=== PATIENT | female | born 1980 | race Caucasian/White ===

== ENCOUNTER 2023-12-02 09:57 | Outpatient (OUT) | payer MEDICAID, SELFPAY ==
[2023-12-02 10:36] LABS: Basophils Percent Auto 0.2 % (0.2-2.0); Eosinophils Absolute Auto 0.2 10^3/uL (0.0-0.7); Eosinophils Percent Auto 3.3 % (0.9-7.0); Hematocrit 38.2 % (36.0-48.0); Hemoglobin 12.2 g/dL (12.0-16.0); Immature Granulocytes Abs Auto 0.02 10^3/uL (0.00-0.03); Immature Granulocytes Pct Auto 0.4 % (0.0-0.5); Lymphocytes Absolute Auto 1.3 10^3/uL (1.2-3.8); Lymphocytes Percent Auto 27.1 % (20.5-60.0); Mean Corpuscular HGB Conc 31.9 g/dL (29.9-35.2); Mean Corpuscular Hemoglobin 28.8 pg (26.7-34.0); Mean Corpuscular Volume 90.1 fL (81.0-99.0); Mean Platelet Volume 10.4 fL (9.5-13.5); Monocytes Absolute Auto 0.5 10^3/uL (0.3-0.8); Neutrophils Absolute Auto 2.9 10^3/uL (1.4-6.5); Platelet Count 293 10^3/uL (150-450); Red Blood Count 4.24 10^6/uL (4.20-5.40); Red Cell Distribution Width 15.3 % (11.0-15.0); White Blood Count 4.9 10^3/uL (4.0-11.0)
[2023-12-02 11:42] LABS: Alanine Aminotransferase 28 U/L (14-59); Albumin Globulin Ratio 1.2; Albumin Level 3.6 g/dL (3.4-5.0); Alkaline Phosphatase 63 U/L (46-116); Aspartate Amino Transferase 15 U/L (15-37); BUN Creatinine Ratio 25.4; Bilirubin Total 0.3 mg/dL (0.2-1.0); Calcium 9.3 mg/dL (8.5-10.1); Carbon Dioxide 30.1 mmol/L (21.0-32.0); Chloride 101 mmol/L (98-107); Chol HDL Ratio 3.5; Cholesterol 190 mg/dL (<=200); Estimated GFR (African America >60 (>=60); Estimated GFR (Non-African Ame >60 (>=60); Glucose 88 mg/dL (74-106); HDL Cholesterol 54 mg/dL (40-60); Magnesium 1.9 mg/dL (1.8-2.4); Potassium 4.1 mmol/L (3.5-5.1); Sodium 133 mmol/L (136-145); Total Protein 6.6 g/dL (6.4-8.2); Triglycerides 100 mg/dL (<=150)
[2023-12-08 03:07] LABS: Vitamin B1 (Thiamine), Blood 166.1 nmol/L (66.5-200.0)
== END 2023-12-02 09:58 | disposition home or self-care (01) ==
LOC: LAB 10:01
PROVIDERS: PCP Physician Assistant; Visit Provider Physician Assistant
DX: Z01.818 Encounter for other preprocedural examination (principal); Z98.84 Bariatric surgery status; Z13.6 Encounter for screening for cardiovascular disorders
CPT/HCPCS: 36415; 80053; 80061; 82306; 82607; 82746; 83735; 84425; 85025

== ENCOUNTER 2024-01-17 14:38 | Outpatient (OUT) | payer MEDICAID, SELFPAY ==
--- NOTE | 2024-01-17 15:00 | CA_ITS ---
Patient Name: CHERIE CAPELLAN MR#: [id number] : 1980 Exam Date: 01/17/2024 Ordering Doctor: DR YEIMI CROSS M.D. ECHOCARDIOGRAM REPORT PROCEDURE: CA ECHO DOPPLER COMPLETE INDICATIONS: Pre-op clearance COMPARISON: None. DESCRIPTION: COMPLETE ECHOCARDIOGRAM Real-time transthoracic echocardiography with 2D, M-mode, spectral and color flow Doppler performed. QUALITY: Technical quality was adequate. LEFT VENTRICLE: Normal chamber size. Mild concentric left ventricular hypertrophy. Global left ventricular systolic function is normal. LV EF: Calculated left ventricular ejection fraction is 59%. DIASTOLIC: Normal diastolic function. ATRIAL SEPTUM: LEFT ATRIUM: Mild dilatation. RIGHT ATRIUM: Mild dilatation. RIGHT VENTRICLE: Normal chamber size. Normal right ventricular systolic function. TRICUSPID VALVE: Normal mobility and thickness. No stenosis with trivial regurgitation. No evidence of pulmonary hypertension. RVSP 21 mmHg MITRAL VALVE: Normal mobility and thickness. No evidence of mitral valve stenosis. There is no mitral annular calcification. No mitral regurgitation. AORTIC VALVE: Normal trileaflet appearance. No visible sclerosis. Normal leaflet mobility. No evidence of aortic valve stenosis. No aortic regurgitation. AORTIC ROOT: Normal diameter and appearance. PULMONIC VALVE: Normal thickness and mobility. No stenosis. No regurgitation. PERICARDIUM: No pericardial effusion. IVC: Collapses with inspirations. Normal size. PLEURA: CONCLUSION: 1. Mild concentric left ventricular hypertrophy with normal systolic function. LVEF is estimated at 55 to 60%. 2. Normal right ventricular size and systolic function. 3. Normal diastolic function. 4. No significant valvular dysfunction. 5. Normal right-sided pressures. Adult Echocardiography Procedure Report Left Ventricle LVEDD (3.7 - 5.6 cm): 4.78 cm LVESD (2.2 - 4.0 cm): 3.16 cm LVIVS thickness (0.6 - 1.2 cm): 1.18 cm LVPW thickness (0.5 - 1.0 cm): 1.31 cm e': 0.11 m/s E - e': 7.43 LVOT Max Gradient: 2.37 mm[Hg] LVOT Area (cm2): 0.77 m/s Peak Velocity (LVOT): 0.77 m/s Mean Velocity (LVOT): 0.46 m/s LVOT Diameter 2.14 cm Left Ventricular Ejection Fraction: 58.86 % Left Atrium LA Volume Index (2D A2C): 42.69 ml/m2 Left Atrium Systolic Dimension: 4.22 cm Mitral Valve MV E to A Ratio: 1.61 Mitral Valve A-Wave Peak Velocity: 0.49 m/s Mitral Valve E-Wave Peak Velocity: 0.79 m/s Right Ventricle RV Internal Diastolic Dimension: 3.46 cm Aorta AO Root Diam: 3.17 cm Ascending Ao Diam: 3.08 cm Aortic Valve AoV Area (Peak Giles): 2.71 cm2, 2.71 cm2 AoV Area (VTI): 2.99 cm2, 2.99 cm2 Peak Velocity(Antegrade Flow): 1.02 m/s Peak Gradient(Antegrade Flow): 4.19 mm[Hg] Mean Velocity(Antegrade Flow): 0.68 m/s Mean Gradient(Antegrade Flow): 2.07 mm[Hg] Velocity Time Integral: 20.95 cm Tricuspid Valve Peak Velocity (Regurgitant Flow): 2.17 m/s, 2.05 m/s, 2.14 m/s Pulmonic Valve Mean Gradient: 1.89 mm[Hg] Mean Velocity: 0.66 m/s Peak Velocity: 0.84 m/s, 0.81 m/s Peak Gradient: 2.80 mm[Hg], 2.64 mm[Hg] Right Atrium Right Atrium Systolic Pressure: 63.95 ml, 63.95 ml Dictated by: Nabor Nicolas M.D. on 01/19/2024 at 12:05 Approved by: Nabor Nicolas M.D. on 01/19/2024 at 12:07
== END 2024-01-17 14:39 | disposition home or self-care (01) ==
LOC: CARD 14:39
PROVIDERS: PCP Physician Assistant; Visit Provider Internal Medicine Interventional Cardiology
DX: Z01.818 Encounter for other preprocedural examination (principal)
CPT/HCPCS: 93306

== ENCOUNTER 2024-01-25 07:30 | Outpatient (OUT) | payer MEDICAID, SELFPAY ==
--- NOTE | 2024-01-25 07:05 | NM_ITS ---
Patient Name: CHERIE CAPELLAN MR#: [id number] : 1980 Exam Date: 01/25/2024 Ordering Doctor: DR YEIMI CROSS M.D. RADIOLOGY REPORT PROCEDURE: NM MAVERICK PERF SPECT REST STR COMPARISON: None. INDICATIONS: TACHYCARDIA, PRE PROCEDURE CARDIOVASCULAR EXAM TECHNIQUE: Exam Description: Stress/Rest one day protocol gated SPECT Rest Imagin.4 mCi Tc-99m Cardiolite IV on 01/25/2024 Stress Imaging 30.1 mCi Tc-99m Cardiolite IV on 01/25/2024 Exercise Protocol: 0.4 mg Lexiscan given IV Heart Rate (bpm): Rest: 74 Max: 97 PMHR: 55 Blood Pressure: Rest: 138/80 Max: 138/80 Symptoms: Rest and peak stress ECG findings were normal and the exercise portion of the study was normal per attending physician Dr. Cross . For more details please see separate cardiac stress test report. FINDINGS: QUALITY OF STUDY: Good. PERFUSION DEFECT: LOCATION: Mid-anterior. Apical anterior. SIZE: Small (1-2 segments). SEVERITY: Mild. TYPE: Persistent. WALL MOTION: Normal. LV SIZE: Normal. 101 mL. TID / TCD: None; 1.1 LVEF: Normal. Calculated EF 76%. SUMMARY: Myocardial perfusion imaging study has ABNORMAL findings. CONCLUSION: 1. Small fixed defect in the anterior wall. No reversible ischemia 2. Normal exercise test Dictated by: Raman Lucas MD on 01/26/2024 at 09:45 Approved by: Raman Lucas MD on 01/26/2024 at 09:47
--- NOTE | 2024-01-25 07:30 | PCN_ITS ---
CARDIAC STRESS TEST ? Requesting Physician:? Procedure Date:? 01/25/2024 ? INDICATION:? Preoperative evaluation. ? METHODS:? After risks, benefits and alternatives were explained, written informed consent was obtained.? The patient was connected to the appropriate hemodynamic and electrocardiographic monitoring.? ? Lexiscan 0.4 mg was infused intravenously.? The patient was monitored for the standard duration.? She was to be transferred to the Nuclear Lab for imaging.? There were no complications. ? HEMODYNAMICS: Resting heart rate was 74 beats per minute, increasing to a maximum of 97 beats per minute.? Resting blood pressure was 138/80, decreasing to a minimum of 120/78.? The patient had no symptoms. ? ELECTROCARDIOGRAPHY: Rest EKG:? Normal sinus rhythm, poor R-wave progression, cannot rule out anterior infarct, age indeterminate.? Right axis deviation.? Abnormal resting EKG. During infusion and recovery:? No significant ST-T wave changes noted.? No significant arrhythmias seen. ? FINAL IMPRESSIONS: 1.? No ischemic EKG changes seen on Lexiscan pharmacological stress test. 2.? Nuclear images are to be read, interpreted and reported in a separate dictation. [facility]
--- OUTSIDE RECORDS SUMMARY | 2024-01-25 07:33 | XMS_ITS | CCD ---
Author Name Unknown Address [address] [facility] [address] [place] [address] Organization [facility] Care Team Providers Care Quality Officer Name Role Phone Maria Luisa Anand Unavailable Javier Pham Unavailable Curtis Lind Unavailable Ricky Quarles Unavailable Curtis Yousif Unavailable Jones Caceres II Unavailable DO Ricky Quarles Primary Care Provider [phone] DO Jethro Perez Emergency Provider Unavai MD Jones Glass II Attending Provider PIEDAD Pressley Primary Care Provider [phone] DR JETHRO ORDONEZ Admitting Unavailable JOSÉ LUIS, DR MORELOS Attending Unavailable MARLENE, DR CONY Camarena Consulting Unavailable JOSÉ LUIS, DR MORELOS Consulting Unavailable JOSÉ LUIS, DR MORELOS Admitting Unavailable JOSÉ LUIS, DR MORELOS Attending Unavailable JOSÉ LUIS, DR MORELOS Consulting Unavailable Eleanor Singleton Unavailable Ai Pressley APRN Unavailable Billy Mccoy Unavailable GIACOMO Singleton Attending Provider NO FAMILY, PHYSICIAN Primary Care Provider Unava ilable PIEDAD Pressley Primary Care Provider [phone] ARDEN Carmichael Attending Provider Katarzyna Carmichael Unavailable PIEDAD Pressley Primary Care Provider [phone] ARDEN Carmichaelher R Attending Provider Mani, PAINT POURER Eleanor Attending Provider NO FAMILY, PHYSICIAN Primary Care Provider Unava MD Adelaide Gagnon Attending Provider [phone] PIEDAD Altamirano Attending Provider Sandra Hurley Unavailable Mani, PAINT POURER Eleanor Attending Provider NO FAMILY, PHYSICIAN Primary Care Provider Unava ilable MD Raman Laura Attending Provider ARDEN Carmichaelher Migue Referring Provider [phone] CASS PressleyC Ai Nolasco Attending Provider Raman Laura Unavailable Mani, PAINT POURER Eleanor Attending Provider NO FAMILY, PHYSICIAN Primary Care Provider Unava ilable GIACOMO Pressley-C Ai Nolasco Primary Care Provider MD Raman Laura Attending Provider [phone] Huan LOPEZNAi Charlotte Unavailable RAYA OLIVA Attending Unavailable RAYA OLIVA Referring Unavailable CASS PressleyC Ai Nolasco Primary Care Provider MD Raman Laura Attending Provider [phone] NO FAMILY, PHYSICIAN Primary Care Provider Unava yobani PHAN JR., VERONICA Tapia Attending Unavailnic PHAN JR., VERONICA Tapia Attending Unavailnic PHAN JR., GEORGE C Referring Unavaila ADELAIDE Arthur Attending Unavailable MD Raman Laura Attending Provider [phone] YEIMI CROSS Attending Unavailable Raman Laura Attending Unavailable Raman Laura Admitting Unavailable Huan, Ai N Primary Care Unavailable Raman Laura Admitting Unavailable Raman Laura Attending Unavailable Huan, Ai N Primary Care Unavailable Raman Laura Attending Unavailable Raman Laura Admitting Unavailable Huan, Ai N Primary Care Unavailable NO FAMILY, PHYSICIAN Primary Care Unavailable Raman Laura Attending Unavailable Raman Laura Admitting Unavailable Singleton, Eleanor Admitting Unavailable Mani Eleanor Attending Unavailable NO FAMILY, PHYSICIAN Primary Care Unavailable Katarzyna Carmichael R Admitting Unavailable Katarzyna Carmichael R Attending Unavailable Huan Ai N Primary Care Unavailable Adelaide Zavala Admitting Unavailable Adelaide Zavala Attending Unavailable Huan, Ai N Primary Care Unavailable Karin Altamirano Admitting Unavailable Karin Altamirano Attending Unavailable Huan Ai N Primary Care Unavailable Katarzyna Carmichael R Referring Unavailable Raman Laura Attending Unavailable Raman Laura Admitting Unavailable Huan, Ai N Primary Care Unavailable Huan, Ai N Primary Care Unavailable Huan, Ai N Attending Unavailable Sandrita Pressleyy N Admitting Unavailable Raman Laura Attending Unavailable Raman Laura Admitting Unavailable HuanLonnieAi N Primary Care Unavailable Allergies Allergy Classification Reported Allergen(s) Allergy Type Date of Onset Reaction(s) Facility (10 sources) Penicillin V Drug Allergy rash [facility] [employer] Other (20 sources) Penicillin Drug Allergy 08-31-2022 rash [facility] Repository (20 sources) metFORMIN; Translations: [METFORMIN] Drug Allergy 08-12-[address] [facility] (3 sources) Penicillins; Translations: [PENICILLINS] Drug Allergy 08-04-[address] [facility] (1 source) metFORMIN Drug Allergy 12-30-2023 [facility] Repository (1 source) Penicillins Drug allergy (disorder) 12-30-2023 [facility] Repository Medications Current Medications Medication Drug Class(es) Dates Sig (Normalized) Sig (Original) acetaminophen 325 mg / HYDROcodone bitartrate 5 mg oral tablet (20 sources) Opioid Agonist Start: 12-30-2023 take 1 tablet by mouth twice daily as needed HYDROcodone-Aceta minophen 5-325 MG 1 tablet as needed Orally twice daily (*do not fill until 01/01/24) for 30 days G89.29 Chronic Pain Dec, Active Start: 12-02-2023 take 1 tablet by nikos th twice daily as needed HYDROcodone-Acetaminophen 5-325 MG 1 tab let as needed Orally twice daily (*do not fill until 12/02/23) for 30 days G89.29 Chronic Pain Nov, Active Start: 11-02-2023 take 1 tablet by nikos th twice daily as needed HYDROcodone-Acetaminophen 5-325 MG 1 tab let as needed Orally twice daily (*do not fill until 11/02/23) for 30 days G89.29 Chronic Pain Oct, Active Start: 10-03-2023 take 1 tablet by nikos th twice daily as needed HYDROcodone-Acetaminophen 5-325 MG 1 tab let as needed Orally twice daily (*do not fill until 10/03/23) for 30 days G89.29 Chronic Pain Sep, Active Start: 10-03-2023 take 1 tablet by nikos th twice daily as needed HYDROcodone-Acetaminophen 5-325 MG 1 tab let as needed Orally twice daily (*do not fill until 10/03/23) for 30 days G89.29 Chronic Pain Sep, Active Start: 09-03-2023 take 1 tablet by nikos th twice daily as needed HYDROcodone-Acetaminophen 5-325 MG 1 tab let as needed Orally twice daily (*do not fill until 09/03/23) for 30 days G89.29 Chronic Pain Aug, Active Start: 08-04-2023 take 1 tablet by nikos th twice daily as needed HYDROcodone-Acetaminophen 5-325 MG 1 tab let as needed Orally twice daily (*do not fill until 08/04/23) for 30 days G89.29 Chronic Pain Jul, Active Start: 07-04-2023 take 1 tablet by nikos th twice daily as needed HYDROcodone-Acetaminophen 5-325 MG 1 tab let as needed Orally twice daily (*do not fill until 07/04/23) for 30 days G89.29 Chronic Pain Jun, Active Start: 07-04-2023 take 1 tablet by nikos th twice daily as needed HYDROcodone-Acetaminophen 5-325 MG 1 tab let as needed Orally twice daily (*do not fill until 07/04/23) for 30 days G89.29 Chronic Pain Jun, Active Start: 06-04-2023 take 1 tablet by nikos th twice daily as needed HYDROcodone-Acetaminophen 5-325 MG 1 tab let as needed Orally twice daily (*do not fill until 05/05/23) for 30 days G89.29 Chronic Pain May, Active Start: 05-03-2023 take 1 tablet by nikos th twice daily as needed HYDROcodone-Acetaminophen 5-325 MG 1 tab let as needed Orally twice daily (*do not fill until 05/03/23) for 30 days G89.29 Chronic Pain Apr, Active Start: 05-02-2023 take 1 tablet by nikos th twice daily as needed HYDROcodone-Acetaminophen 5-325 MG 1 tab let as needed Orally twice daily (*do not fill until 05/03/23) for 30 days G89.29 Chronic Pain Apr, Active Start: 03-31-2023 take 1 tablet by nikos th twice daily as needed HYDROcodone-Acetaminophen 5-325 MG 1 tab let as needed Orally twice daily (*do not fill until 03/31/23) for 30 days G89.29 Chronic Pain March, Active Start: 02-27-2023 take 1 tablet by nikos th twice daily as needed HYDROcodone-Acetaminophen 5-325 MG 1 tab let as needed Orally twice daily (*do not fill until 02/27/23) for 30 days G89.29 Chronic Pain Feb, Active Start: 02-27-2023 take 1 tablet by nikos th twice daily as needed HYDROcodone-Acetaminophen 5-325 MG 1 tab let as needed Orally twice daily (*do not fill until 02/27/23) for 30 days G89.29 Chronic Pain Feb, Active Start: 01-28-2023 take 1 tablet by nikos th twice daily as needed HYDROcodone-Acetaminophen 5-325 MG 1 tab let as needed Orally twice daily (*do not fill until 01/28/23) for 30 days G89.29 Chronic Pain Jan, Active Start: 01-28-2023 take 1 tablet by nikos th twice daily as needed HYDROcodone-Acetaminophen 5-325 MG 1 tab let as needed Orally twice daily (*do not fill until 01/28/23) for 30 days G89.29 Chronic Pain Jan, Active Start: 01-03-2023 take 1 tablet by nikos th twice daily as needed HYDROcodone-Acetaminophen 5-325 MG 1 tab let as needed Orally twice daily (*do not fill until 01/06/2023) for 23 days G89.29 Chronic Pain Dec, Active Start: 10-20-2022 take 1 tablet by nikos th twice daily as needed HYDROcodone-Acetaminophen 5-325 MG 1 tab let as needed Orally twice daily for 30 days G89.29 Chronic Pain Sep, Active Start: 10-07-2022 take 1 tablet by nikos th once daily as needed HYDROcodone-Acetaminophen 5-325 MG 1 tab let as needed Orally once daily as needed for 14 days G89.29 Chronic Pain Sep, Active Start: 09-24-2022 HYDROcodone-ac etaminophen (NORCO) 5-325 mg per tablet HYDROcodone-Acet aminophen Not-Taking/PRN HYDROcodone-Acet aminophen Not-Taking HYDROcodone-Acet aminophen Active acetaminophen 325 mg / oxyCODONE hydrochloride 5 mg oral tablet (2 sources) Opioid Agonist take 1 tablet by mouth every eight hours as needed Percocet 5-325 MG 1 tablet as needed Orally prn every 8 hrs Active carBAMazepine 200 mg oral tablet (12 sources) Mood Stabilizer Start: take 1 tablet by mouth every twelve hours carBAMazepine 200 MG 1 tablet Orally Twice a day for 30 days Jun, Active cetirizine hydrochloride 10 mg oral tablet (20 sources) Histamine-1 Receptor Antagonist take 1 tablet by mouth every twenty-four hours ZyrTEC Allergy 10 MG 1 tablet Orally Once a day Active take 1 tablet by mouth once jaswinder y cetirizine (ZYRTEC) 5 mg tablet Take 5 mg by mouth once daily. 0 Active Comment on above: Take 5 mg by mouth o nce daily. doxycycline hyclate 50 mg delayed release oral tablet (4 sources) Tetracycline-class Drug take 1 tablet by mouth every twelve hours Doxycycline Hyclate 50 MG 1 tablet Orally Twice a day Active Fiber (18 sources) Fiber Active folic acid 1 mg oral tablet (20 sources) take 1 tablet by mouth every twenty-four hours Folic Acid 1 MG 1 tablet Orally Once a day Active folic acid 0.8 m g cap Take by mouth. 0 Active Comment on above: Take by mouth. 3 ml liraglutide 6 mg/ml pen injector (20 sources) GLP-1 Receptor Agonist Start: 05-09-20 inject 1.8 mg by subcutaneous injection once daily Victoza 18 MG/3ML 1.8mg Subcutaneous Daily for 30 days Apr, Active Victoza 18mg/3ml injection as directed 1.8mg qd Not-Taking/PRN Victoza 18mg/3ml injection as directed 1.8mg qd Not-Taking Victoza 18mg/3ml injection as directed 1.8mg qd Active Multi For Her - (20 sources) Multi For Her - as directed Orally Active naproxen 500 mg oral tablet (10 sources) Nonsteroidal Anti-inflammatory Drug Start: take 1 tablet by mouth twice daily Naproxen (Naprosyn) 500 mg tablet Active 500 MG PO Twice daily 09 01May 16, 2022 11:00pm vitamin B12 (20 sources) Vitamin B12 cyanocobalamin ( VITAMIN B-12) 1,000 mcg tab Take 2,000 mcg by mouth. 0 Active Vitamin B12 Acti ve Comment on above: Take 2,000 mcg by [facility]. Vitamin D (15 sources) Vitamin D 5000 I U Active Completed/Discontinued Medications Medication Drug Class(es) Dates Sig (Normalized) Sig (Original) 8 hr acetaminophen 650 mg extended release oral tablet (20 sources) take 1 tablet by mouth every eight hours Acetaminophen ER 650 MG 1 tablets as needed Orally every 8 hrs Not-Taking/PRN take 1 tablet by [facility] every eight hours as needed Acetaminophen ER 650 MG 1 tablets as nee ded Orally every 8 hrs Not-Taking celecoxib 200 mg oral capsule (20 sources) Nonsteroidal Anti-inflammatory Drug Start: 03-25-2021 celecoxib (CELEBREX) 200 mg capsule take 1 capsule by [facility] every twelve hours CeleBREX 200 MG 1 capsule with food Oral ly Twice a day for 90 days Active DULoxetine 60 mg delayed release oral capsule (20 sources) Serotonin and Norepinephrine Reuptake Inhibitor Start: 04-04-2020 take 1 tablet by mouth once daily DULoxetine (CYMBALTA) 60 mg capsule Take 1 tablet by mouth once daily. 0 04/04/2020 Active Comment on above: Take 1 tablet by [facility] once daily. ergocalciferol 1.25 mg oral capsule (2 sources) Provitamin D2 Compound take 1 capsule by mouth once daily ergocalciferol 50,000 unit capsule (VITAMIN D2, DRISDOL) Take 1,000 Units by mouth once daily. 0 Active Comment on above: Take 1,000 Units by mouth once daily. Ketorolac (20 sources) Nonsteroidal Anti-inflammatory Drug, Cyclooxygenase Inhibitor Start: 04-09-2022 Toradol per 15 mg March, 60 mg Magnesium (2 sources) Magnesium 200 mg tab Take by mouth. 0 Active Comment on above: Take by mouth. pantoprazole 40 mg oral granules (20 sources) Proton Pump Inhibitor Start: 05-31-2022 pantoprazole (PROTONIX) 40 mg grps take 1 tablet by nikos th every twenty-four hours Pantoprazole Sodium 40 MG 1 tablet Orall y Once a day for 30 days Active take 1 tablet by nikos th every twenty-four hours Pantoprazole Sodium 20 MG 1 tablet Orall y Once a day for 30 days Active triamcinolone acetonide 10 mg/ml injectable suspension (20 sources) Corticosteroid Start: 04-09-2022 Kenalog March 60 mg Problems Active Problems Problem Classification Problem Date Documented Date Episodic/Chronic Administrative/social admission (2 sources) Persons encountering health services in other specified circumstances Episodic Anxiety disorders (20 sources) Anxiety; Translations: [Anxiety disorder, unspecified] Onset: 02-03-2023 Chronic Esophageal disorders (20 sources) Gastroesophageal reflux disease; Translations: [Gastro-esophageal reflux disease without esophagitis] Onset: 01-26-2022 Resolved: 01-26-2022 Chronic Menstrual disorders (20 sources) Amenorrhea; Translations: [Amenorrhea, unspecified] Chronic Miscellaneous mental health disorders (18 sources) Chronic insomnia; Translations: [Psychophysiologic insomnia] Chronic Mood disorders (20 sources) Major depressive disorder, single episode, unspecified; Translations: [Depression] Onset: 02-03-2023 Chronic Osteoarthritis (20 sources) Arthropathy of left hip joint; Translations: [Unilateral primary osteoarthritis, left hip] Onset: 02-03-2023 Chronic Other bone disease and musculoskeletal deformities (1 source) Osteonecrosis, unspecified; Translations: [OSTEONECROSIS UNSPECIFIED] Onset: 09-22-2022 Chronic Other bone disease and musculoskeletal deformities (20 sources) Avascular necrosis of bone of hip; 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] Chronic Other bone disease and musculoskeletal deformities (18 sources) Idiopathic aseptic necrosis of left femur; 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] Onset: 02-03-2023 Chronic Other bone disease and musculoskeletal deformities (1 source) Avascular necrosis of bone; 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] 08-12-2023 Chronic Other bone disease and musculoskeletal deformities (2 sources) Idiopathic aseptic necrosis of unspecified bone; Translations: [Idiopathic aseptic necrosis of unspecified bone] Onset: 12-19-2023 Chronic Other congenital anomalies (10 sources) Tnoo-Danlos syndrome; 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, 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 Other connective tissue disease (3 sources) Pain in left leg Episodic Other connective tissue disease (2 sources) Pain in left thigh Episodic Other endocrine disorders (20 sources) Polycystic ovaries; Translations: [Polycystic ovarian syndrome] Chronic Other endocrine disorders (3 sources) Polycystic ovarian syndrome; Translations: [Polycystic ovarian syndrome] Onset: 02-03-2023 Chronic Other inflammatory condition of skin (20 sources) Psoriatic arthritis; 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, unspecified] Chronic Other inflammatory condition of skin (1 source) Arthropathic psoriasis, unspecified Onset: 01-26-2022 Resolved: 01-26-2022 Chronic Other nervous system disorders (20 sources) Chronic pain; Translations: [Other chronic pain] Chronic Other nervous system disorders (18 sources) Other chronic pain; Translations: [Other chronic pain] Onset: 02-03-2023 Chronic Other nervous system disorders (18 sources) Chronic pain syndrome; Translations: [Chronic pain syndrome] Chronic Other nervous system disorders (1 source) Chronic pain syndrome Chronic Other non-traumatic joint disorders (2 sources) Pain in unspecified hip Onset: 03-01-2022 Resolved: 03-01-2022 Episodic Other non-traumatic joint disorders (10 sources) Hip pain; Translations: [Pain in unspecified hip] 05-17-2022 Episodic Other nutritional; endocrine; and metabolic disorders (20 sources) Morbid obesity; Translations: [Morbid (severe) obesity due to excess calories] Chronic Other nutritional; endocrine; and metabolic disorders (20 sources) Obesity; Translations: [Obesity, unspecified] Chronic Other nutritional; endocrine; and metabolic disorders (3 sources) Morbid (severe) obesity due to excess calories; Translations: [Morbid (severe) obesity due to excess calories] Onset: 12-19-2023 Chronic Other nutritional; endocrine; and metabolic disorders (7 sources) Obesity, unspecified; Translations: [Obesity, unspecified] Onset: 02-03-2023 Chronic Other nutritional; endocrine; and metabolic disorders (20 sources) Body mass index 40+ - severely obese; Translations: [Body mass index (BMI) 40.0-44.9, adult] Chronic Other nutritional; endocrine; and metabolic disorders (6 sources) Body mass index (BMI) 40.0-44.9, adult Chronic Personality disorders (20 sources) Borderline personality disorder; Translations: [Borderline personality disorder] Onset: 01-26-2022 Resolved: 01-26-2022 Chronic Residual codes; unclassified (18 sources) Obstructive sleep apnea syndrome; Translations: [Obstructive sleep apnea (adult) (pediatric)] Chronic Residual codes; unclassified (18 sources) Sleep apnea; Translations: [Sleep apnea, unspecified] Chronic Residual codes; unclassified (2 sources) Obstructive sleep apnea (adult) (pediatric) Chronic Residual codes; unclassified (1 source) Obstructive sleep apnea (adult)(pediatric); Translations: [Obstructive sleep apnea (adult) (pediatric)] Onset: 07-20-2023 Chronic Residual codes; unclassified (2 sources) Pain; Translations: [Pain, unspecified] Episodic Residual codes; unclassified (20 sources) Insomnia; Translations: [Insomnia, unspecified] Episodic Residual codes; unclassified (1 source) Pain, unspecified; Translations: [Pain] Onset: 08-12-2023 Episodic Unclassified (1 source) Dietary counseling and surveillance; Translations: [Dietary counseling and surveillance] Onset: 06-10-2023 Unclassified (1 source) Tono-Danlos syndrome, unspecified; 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, unspecified] Onset: 04-24-2023 Unclassified (1 source) Pain in right hip; Translations: [Pain in right hip] Onset: 03-11-2023 Unclassified (1 source) Encounter for screening mammogram for malignant neoplasm of breast; Translations: [Encounter for screening mammogram for malignant neoplasm of breast] Onset: 03-10-2023 Past or Other Problems Problem Classification Problem Date Documented Da te Episodic/Chronic Cardiac dysrhythmias (2 sources) Tachycardia, unspecified; Translations: [Palpitations] Onset: 04-24-2023 Episodic Coma; stupor; and brain damage (20 sources) Excessive daytime sleepiness - normal night sleep; Translations: [Somnolence] Onset: 02-03-2023 Episodic Diabetes mellitus without complication (3 sources) Impaired fasting glucose; Translations: [Impaired fasting glucose] Onset: 02-03-2023 Episodic Immunizations and screening for infectious disease (2 sources) Contact with and (suspected) exposure to other viral communicable diseases Onset: 01-13-2022 Resolved: 01-19-2022 Episodic Other aftercare (3 sources) Encounter for therapeutic drug level monitoring; Translations: [Encounter for therapeutic drug level monitoring] Onset: 09-01-2023 Episodic Other non-traumatic joint disorders (6 sources) Pain in left hip; Translations: [PAIN IN LEFT HIP] Onset: 06-09-2022 Resolved: 06-09-2022 Episodic Other skin disorders (2 sources) Generalized hyperhidrosis; Translations: [Generalized hyperhidrosis] Onset: 01-26-2022 Resolved: 01-26-2022 Episodic Results Test Name Value Interpretation Reference Range Facility Office Visiton 12-19-2023 Follow-up visit [id number] Nataliia Nelson 1980 F Date Provider Department Center 12/19/2023 Maria Alejandra-YEIMI CROSS CARD Dae Shook Family History Problem Relation Age of Onset Hypertension Mother Kidney cancer Father Kidney cancer Maternal Grandmother Heart failure Maternal Grandfather Aortic aneurysm Paternal Grandmother Family Status - Relation Status Age at Mother Father Maternal Grandmother Maternal Grandfather Paternal Grandmother Level of Service:64597 [place] OFFICE/OUTPATIENT NEW MODERATE MDM 45 MINUTES Normal [facility] Basophils Auto (Bld) [#/Vol] Ordered By: Raman Laura on 09-01-2023 Basophils (Bld) [#/Vol] 0.0 10*3/uL 0.0-0.2 [facility] Basophils/100 WBC Auto (Bld) Ordered By: Raman Laura on 09-01-2023 Basophils/100 WBC (Bld) 0.6 % . F [facility] Complete Blood Count Auto Di ffon 09-01-2023 Basophils (Bld) [#/Vol] 0.0 10*3/uL Normal 0.0-0.2 [facility] Comment on above: Order Comment: Reaso n for Exam Obesity;Gastroesophageal reflux disease, unspecified whether Result Comment: PERF ORMED BY: [facility] [address] [place] [address] PATHOLOGIST [employer]ITE MONITOR AAMIR TORRES M.D. Performed By: #### C MP, A1C WTH eA, CBC, [id number], TSH3 wRFLX, B12, LIPID #### [facility] [address] [place] [address] [place] Basophils/100 WBC (Bld) 0.6 % Normal . F [facility] Comment on above: Order Comment: Reaso n for Exam Obesity;Gastroesophageal reflux disease, unspecified whether Performed By: #### C MP, A1C WTH eA, CBC, [id number], TSH3 wRFLX, B12, LIPID #### [facility] [address] [place] [address] [place] Eosinophils (Bld) [#/Vol] 0.2 10*3/uL Normal 0.0-0.45 [facility] Comment on above: Order Comment: Reaso n for Exam Obesity;Gastroesophageal reflux disease, unspecified whether Performed By: #### C MP, A1C WTH eA, CBC, [id number], TSH3 wRFLX, B12, LIPID #### [facility] [address] [place] [address] [place] Eosinophils/100 WBC (Bld) 3.5 % Normal . [facility] Comment on above: Order Comment: Reaso n for Exam Obesity;Gastroesophageal reflux disease, unspecified whether Performed By: #### C MP, A1C WTH eA, CBC, [id number], TSH3 wRFLX, B12, LIPID #### [address] Erythrocyte distribution width (RBC) [Ratio] 15.0 % Normal 11.9-15.3 [facility] Comment on above: Order Comment: Reaso n for Exam Obesity;Gastroesophageal reflux disease, unspecified whether Performed By: #### C MP, A1C WTH eA, CBC, [id number], TSH3 wRFLX, B12, LIPID #### [facility] [address] Hematocrit (Bld) [Volume fraction] 36.1 % Normal 34.0-46.4 [facility] Comment on above: Order Comment: Reaso n for Exam Obesity;Gastroesophageal reflux disease, unspecified whether Performed By: #### C MP, A1C WTH eA, CBC, [id number], TSH3 wRFLX, B12, LIPID #### [facility] [address] Hemoglobin (Bld) [Mass/Vol] 12.0 g/dL Normal 11.8-15.4 [facility] Comment on above: Order Comment: Reaso n for Exam Obesity;Gastroesophageal reflux disease, unspecified whether Performed By: #### C MP, A1C WTH eA, CBC, [id number], TSH3 wRFLX, B12, LIPID #### [facility] [address] [place] [address] Lymphocytes (Bld) [#/Vol] 1.4 10*3/uL Normal 1.00-4.8 [facility] Comment on above: Order Comment: Reaso n for Exam Obesity;Gastroesophageal reflux disease, unspecified whether Performed By: #### C MP, A1C WTH eA, CBC, [id number], TSH3 wRFLX, B12, LIPID #### [address] Lymphocytes/100 WBC (Bld) 29.0 % Normal . [facility] Comment on above: Order Comment: Reaso n for Exam Obesity;Gastroesophageal reflux disease, unspecified whether Performed By: #### C MP, A1C WTH eA, CBC, [id number], TSH3 wRFLX, B12, LIPID #### [facility] [address] [address] MCH (RBC) [Entitic mass] 28.6 pg Normal 24.7-34.3 [facility] Comment on above: Order Comment: Reaso n for Exam Obesity;Gastroesophageal reflux disease, unspecified whether Performed By: #### C MP, A1C WTH eA, CBC, [id number], TSH3 wRFLX, B12, LIPID #### [facility] [address] [place], [place] [id number] [facility] MCV (RBC) [Entitic vol] 85.8 fL Normal 80-100 F [facility] Comment on above: Order Comment: Reaso n for Exam Obesity;Gastroesophageal reflux disease, unspecified whether Performed By: #### C MP, A1C WTH eA, CBC, [id number], TSH3 wRFLX, B12, LIPID #### [facility] [address] Mean Corpuscular HGB Conc 33.3 g/dL Normal 32.0-35.0 [facility] Comment on above: Order Comment: Reaso n for Exam Obesity;Gastroesophageal reflux disease, unspecified whether Performed By: #### C MP, A1C WTH eA, CBC, [id number], TSH3 wRFLX, B12, LIPID #### [facility] [address] [place] [address] [place] Monocytes (Bld) [#/Vol] 0.4 10*3/uL Normal 0.0-0.8 [facility] Comment on above: Order Comment: Reaso n for Exam Obesity;Gastroesophageal reflux disease, unspecified whether Performed By: #### C MP, A1C WTH eA, CBC, [id number], TSH3 wRFLX, B12, LIPID #### [facility] [address] Monocytes/100 WBC (Bld) 8.9 % Normal . [facility] Comment on above: Order Comment: Reaso n for Exam Obesity;Gastroesophageal reflux disease, unspecified whether Performed By: #### C MP, A1C WTH eA, CBC, [id number], TSH3 wRFLX, B12, LIPID #### [facility] [address] [place] [address] [place] Neutrophils (Bld) [#/Vol] 2.8 10*3/uL Normal 1.8-7.7 [facility] Comment on above: Order Comment: Reaso n for Exam Obesity;Gastroesophageal reflux disease, unspecified whether Performed By: #### C MP, A1C WTH eA, CBC, [id number], TSH3 wRFLX, B12, LIPID #### [facility] [address] [place] [address] [place] Neutrophils/100 WBC (Bld) 58.0 % Normal . [facility] Comment on above: Order Comment: Reaso n for Exam Obesity;Gastroesophageal reflux disease, unspecified whether Performed By: #### C MP, A1C WTH eA, CBC, [id number], TSH3 wRFLX, B12, LIPID #### [facility] [address] NRBC% 0.2 /100{WBC} Normal 0-0.5 [facility] Comment on above: Order Comment: Reaso n for Exam Obesity;Gastroesophageal reflux disease, unspecified whether Performed By: #### C MP, A1C WTH eA, CBC, [id number], TSH3 wRFLX, B12, LIPID #### [facility] [address] Platelet mean volume (Bld) [Entitic vol] 8.9 fL Normal 6.3-10.7 [facility] Comment on above: Order Comment: Reaso n for Exam Obesity;Gastroesophageal reflux disease, unspecified whether Performed By: #### C MP, A1C WTH eA, CBC, [id number], TSH3 wRFLX, B12, LIPID #### [facility] [address] Platelets (Bld) [#/Vol] 294 10*3/uL Normal 150-450 [facility] Comment on above: Order Comment: Reaso n for Exam Obesity;Gastroesophageal reflux disease, unspecified whether Performed By: #### C MP, A1C WTH eA, CBC, [id number], TSH3 wRFLX, B12, LIPID #### [facility] [address] RBC (Bld) [#/Vol] 4.21 10*6/uL Normal 3.60-5.00 [facility] Comment on above: Order Comment: Reaso n for Exam Obesity;Gastroesophageal reflux disease, unspecified whether Performed By: #### C MP, A1C WTH eA, CBC, [id number], TSH3 wRFLX, B12, LIPID #### [facility] [address] WBC (Bld) [#/Vol] 4.8 10*3/uL Normal 3.8-11.6 [facility] Comment on above: Order Comment: Reaso n for Exam Obesity;Gastroesophageal reflux disease, unspecified whether Performed By: #### C MP, A1C WTH eA, CBC, [id number], TSH3 wRFLX, B12, LIPID #### [facility] [address] Eosinophils Auto (Bld) [#/Vo l]Ordered By: Raman Laura on 09-01-2023 Eosinophils (Bld) [#/Vol] 0.2 10*3/uL 0.0-0.45 [facility] Eosinophils/100 WBC Auto (Bl d)Ordered By: Raman Laura on 09-01-2023 Eosinophils/100 WBC (Bld) 3.5 % . [facility] Erythrocyte distribution wid th Auto (RBC) [Ratio]Ordered By: Raman Laura on 09-01-2023 Erythrocyte distribution width (RBC) [Ratio] 15.0 % 11.9-15.3 [facility] Hematocrit Auto (Bld) [Volum e fraction]Ordered By: Raman Laura on 09-01-2023 Hematocrit (Bld) [Volume fraction] 36.1 % 34.0-46.4 [facility] Hemoglobin [Mass/volume] in BloodOrdered By: Raman Laura on 09-01-2023 Hemoglobin (Bld) [Mass/Vol] 12.0 g/dL 11.8-15.4 [facility] Leukocytes [#/volume] correc omar for nucleated erythrocytes in Blood by Automated counOrdered By: Raman Laura on 09-01-2023 WBC corrected for nucl RBC Auto (Bld) [#/Vol] 4.8 10*3/uL 3.8-11.6 [facility] Lymphocytes Auto (Bld) [#/Vo l]Ordered By: Raman Laura on 09-01-2023 Lymphocytes (Bld) [#/Vol] 1.4 10*3/uL 1.00-4.8 [facility] Lymphocytes/100 WBC Auto (Bl d)Ordered By: Raman Laura on 09-01-2023 Lymphocytes/100 WBC (Bld) 29.0 % . [facility] MCH Auto (RBC) [Entitic mass ]Ordered By: Raman Laura on 09-01-2023 MCH (RBC) [Entitic mass] 28.6 pg 24.7-34.3 [facility] MCHC Auto (RBC) [Mass/Vol]Or dered By: Raman Laura on 09-01-2023 MCHC (RBC) [Mass/Vol] 33.3 g/dL 32.0-35.0 [facility] MCV Auto (RBC) [Entitic vol] Ordered By: Raman Laura on 09-01-2023 MCV (RBC) [Entitic vol] 85.8 fL 80-100 F [facility] Monocytes Auto (Bld) [#/Vol] Ordered By: Raman Laura on 09-01-2023 Monocytes (Bld) [#/Vol] 0.4 10*3/uL 0.0-0.8 [facility] Monocytes/100 WBC Auto (Bld) Ordered By: Raman Laura on 09-01-2023 Monocytes/100 WBC (Bld) 8.9 % . [facility] Neutrophils Auto (Bld) [#/Vo l]Ordered By: Raman Laura on 09-01-2023 Neutrophils (Bld) [#/Vol] 2.8 10*3/uL 1.8-7.7 [facility] Neutrophils/100 WBC Auto (Bl d)Ordered By: Raman Laura on 09-01-2023 Neutrophils/100 WBC (Bld) 58.0 % . [facility] Nucleated erythrocytes [Pres ence] in Blood by Automated countOrdered By: Raman Laura on 09-01-2023 Nucleated RBC Auto Ql (Bld) 0.2 /100{WBC} 0-0.5 [facility] Platelet mean volume Auto (B ld) [Entitic vol]Ordered By: Raman Laura on 09-01-2023 Platelet mean volume (Bld) [Entitic vol] 8.9 fL 6.3-10.7 [facility] Platelets Auto (Bld) [#/Vol] Ordered By: Raman Laura on 09-01-2023 Platelets (Bld) [#/Vol] 294 10*3/uL 150-450 [facility] RBC Auto (Bld) [#/Vol]Ordere d By: Raman Laura on 09-01-2023 RBC (Bld) [#/Vol] 4.21 10*6/uL 3.60-5.00 [facility] WBC Auto (Bld) [#/Vol]Ordere d By: Raman Laura on 09-01-2023 WBC (Bld) [#/Vol] 4.8 10*3/uL 3.8-11.6 [facility] CNOVon 08-12-2023 CNOV Office Visit (ORTHMN ) LESLIENATALIIA ([id number]) 1980 F Date Time Provider Department 08/12/23 12:30 PM RAYA OLIVA ORTHMN During your visit today, we recorded the following information about you: Weight Height 115.7 kg 1.626 m Raya Oliva MD 08/12/2023 5:03 PM Signed CONSULT ORTHOPAEDIC: HIP PRIMARY CARE PHYSICIAN: No primary care provider on file. REFERRING PROVIDER: SELF ASSESSMENT AND PLAN Impression: Left Hip Severe Degenerative Osteoarthritis, Primary Here today for second opinion Fall 2 years ago resulting in right hip pain Treated by local orthopaedic with cortisone injections and physical therapy which made symptoms worse Complains of left lateral hip pain that radiates to groin Currently under the care of pain management and take [place] 5/325 1/2 tab bid Was told needs total hip arthroplasty but needs to decrease BMI to under 40 Diagnoses: No diagnosis found. Based upon the evaluation today and after discussions with Nataliia Nelson, Nataliia Nelson has significant, worsening pain at the hip. This pain is increased with activity and weight bearing, and interferes with activities of daily living. These symptoms have continued despite a number of non-surgical measures, including a trial of oral pain medication (for at least 12 weeks). At this point, the patient will not benefit from further PT due to the severity of their condition. The patient's physical examination is consistent with limitations in range of motion, pain with passive range of motion, and an antalgic gait. These examination findings are corroborated by imaging findings of joint space narrowing, periarticular osteophyte formation, and subchondral sclerosis. The patient has been treated by the practice and all reasonable treatments have failed to control the disease, which causes significant pain and limits activities of daily living. The patient has failed conservative treatment and joint replacement surgery was discussed and agreed upon by both provider and patient. The patient has elected to proceed with surgical management to improve function and relieve pain refractory to non-surgical measures: Left Primary Total Hip Arthroplasty as evidenced by six months of unsuccessful non-operative treatment as outlined in the HPI below. The risks and benefits of surgery were discussed at length including but not limited to the risks of infection, bleeding, nerve or blood vessel injury, deep venous thrombosis, pulmonary embolism, , paralysis, hip dislocation, leg length discrepancy (including requiring use of permanent shoe lift), bone fracture, component loosening or failure requiring re-operation or amputation. Informed consent was obtained and the patient was scheduled. We also discussed fixation strategies including cement and cementless fixation and modern alternative bearings including metal or ceramic with cross-linked polyethylene, [id number]-cegefxy and deqcf-fp-[id number] as well as advantages and disadvantages of each. We also discussed less invasive surgical approaches and reported benefits and risks of these approaches. Surgery date will be based on patient weight loss Need to loss 15-20 pounds prior to surgery and obtain a BMI below 40 The patient has been ordered: Office Visit on 08/12/23 carBAMazepine (TEGRETOL) 200 mg tablet celecoxib (CELEBREX) 200 mg capsule cetirizine (ZYRTEC) 5 mg tablet cyanocobalamin (VITAMIN B-12) 1,000 mcg tab DULoxetine (CYMBALTA) 60 mg capsule ergocalciferol 50,000 unit capsule (VITAMIN D2, DRISDOL) HYDROcodone-acetamino phen (NORCO) 5-325 mg per tablet pantoprazole (PROTONIX) 40 mg grps folic acid 0.8 mg cap Magnesium 200 mg tab No orders placed today. CONSULTS: Patient does not require consults for optimization at this time. Total Joint Athroplasty - Risk Calculator Risk Factors for Total Hip Arthroplasty (PILY) Major Risk Factors Obesity High Risk High: BMI > 40 Moderate: BMI 30-40 Normal: BMI < 30 Diabetes normal High: A1C > 8 Moderate: A1C 7-8 Normal: A1C < 7 Smoking normal High: Current smoker Normal: Non smoker Narcotics Use High Risk High:NarxCare >=300 Moderate: 100-299 Normal: 0-99 Depression Unknown Risk High: PHQ-9 >14 Moderate: PHQ-9 5-14 Normal: PHQ-9 < 5 Area Deprivation Index (TIKI) High Risk High: TIKI Score > 75 Moderate: TIKI 50-75 Normal: TIKI < 50 Obesity: Weight management and obesity medicine (bariatric) program recommended BMI Readings from Last 3 Encounters: 08/12/23 : 43.79 kg/m? Area Deprivation Index (TIKI) TIKI Score 08/12/2023 National Score 80 Patient Health Questionnaire (PHQ-9) No flowsheet data found.(0-4) minimal depression, (5-9) mild depression, (10-14) moderate depression, (15-19) moderately severe depression, (20-27) severe depression Bone Density Risk Screen Nataliia Nelson is low ri (more content not included)... Normal [facility] XR HIP 3V PELV+ AP/LAT LTon 08-12-2023 XR HIP 3V PELV+ AP/LAT LT * * *Final Report* * * DATE OF EXAM: Aug 12 2023 12:19PM AOX 5351 - XR HIP 3V PELV+ AP/LAT LT / PROCEDURE REASON: Pain * * * * Physician Interpretation * * * * EXAMINATION: XR HIP 3V PELV+ AP/LAT LT HISTORY: Chronic left hip pain post fall 2 yrs, ago Pain . TECHNIQUE: XR HIP 3V PELV+ AP/LAT LT Laterality: LEFT Number of different views (projections): 3 M: XB_1 COMPARISON: None RESULT: Severe narrowing of the left hip joint with subchondral sclerosis/cystic change and osteophytes. Left acetabular hypoplasia. Right hip joint is maintained. Sacroiliac joints are maintained as well. No other significant abnormality. IMPRESSION: Moderately advanced left hip osteoarthritis. Insulation Sprayer: PSCB Transcribe Date/Time: Aug 12 2023 2:37P Dictated by : TERESA STEPHENS MD This examination was interpreted and the report reviewed and electronically signed by: TERESA STEPHENS MD on Aug 12 2023 2:38PM EST [id number] Normal [facility] XR HIP GENERAL 3V PELV/AP/LA T LEFTon 08-12-2023 [facility] holter monitor recordingo n 04-29-2023 [place] holter monitor recording [facility] Main [address] [address] Holter Monitor Report Signed Patient: Nataliia eNlson MR#: [id number] : 1980 Acct:[id number] Age/Sex: 42 / F ADM Date: 04/24/23 Loc: EL [facility] Att[facility]: Ai ODELLC Copies to: Arabella Rosales MD, [facility] Ai HERBERT Ordering Provider: Ai HERBERT Date of Service: 04/24/23 CA/CA holter monitor recording: palpitations, night sweats;Unexplained night sweats;Heart pa ORDERED BY: PIEDAD Scott INDICATIONS: A 42-year-old patient with palpitations. 1. The rhythm is sinus throughout. Average heart rate 80 beats per minute. Minimum heart rate 53 beats per minute, sinus bradycardia at 6:20 a.m. Maximum heart rate 140 beats per minute, sinus tachycardia at 7:04 p.m. 2. A single PVC is noted in the whole recording. 3. No atrial arrhythmias are seen. 4. No pauses exceeding 2 seconds were noted. 5. The patient's diary had entry for dizziness and dyspnea associated with sinus tachycardia. CONCLUSION: A 24-hour Holter monitor that demonstrated no significant cardiac arrhythmias. The patient was in sinus rhythm throughout. Average heart rate 80 beats per minute. A single PVC was noted. The patient had symptoms of palpitations and dizziness and shortness of breath when she was having episode of sinus tachycardia. Transcribed By: NTS 04/29/23 1756 Dictated By: Arabella Rosales MD, [facility] 04/29/23 1655 Signed By: 05/02/23 1055 Normal [facility] XR knee RT 4V*on 03-11-2023 XR knee RT 4V* [address] [address] XRay Report Signed Patient: Nataliia Nelson MR#: [id number] : 1980 Acct:[id number] Age/Sex: 42 / F ADM Date: 03/11/23 Loc: XDUCLY Room: Type: [facility] Attending Dr: Karin Altamirano PAINT POURER-C Copies to: PIEDAD Caballero Ordering Provider: PIEDAD Caballero Date of Service: 03/11/23 XR/XR hip LT min 2V(w/wo pelvis)*: Right hip pain;Left hip pain ([id number]) XR/XR knee RT 4V*: Right hip pain;Left hip pain CLINICAL DATA: Patient slipped and fell today. Pain at the left hip and around the right patella. LEFT HIP WITH AP PELVIS - 3 views COMPARISON: 05/18/2022 plain films and 05/29/2022 MRI AP view of the pelvis as well as AP and frog-lateral views of the left hip were obtained. No acute fracture or dislocation is identified. The right hip joint space is maintained and there is no prominent hypertrophy. On the left, there is narrowing of the superior hip joint space. There is subchondral sclerosis at the weightbearing femoral head and adjacent acetabulum. There is also a developing lucency at the femoral head measuring over 2 cm in size. 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 Minor marginal spurring is also seen at the periphery of the femoral head. No soft tissue abnormalities are present. XR/XR hip LT min 2V(w/wo pelvis)* IMPRESSION: PROGRESSION OF DEGENERATIVE CHANGE AND/OR AVASCULAR NECROSIS AT THE LEFT HIP. NO OBVIOUS ACUTE BONY INJURY. RIGHT KNEE - 4 views COMPARISON: None AP, lateral and both oblique views were obtained. No acute fracture or dislocation is noted. There is mild to moderate narrowing of the medial tibiofemoral joint compartment. There is mild tricompartment marginal spurring. There is no significant knee effusion or focal soft tissue swelling. IMPRESSION: DEGENERATIVE CHANGES. NO ACUTE BONY INJURY. Impression dictated by: Izabela Spann M.D.03/11/2023 1:40 PM Dictation Location: [place] [address] Transcribed By: [facility] 03/11/23 1340 Dictated By: Izabela Spann MD 03/11/23 1330 Signed By: 03/11/23 1340 [facility] MM screening mammo BI w/CADo n 03-10-2023 MM screening mammo BI w/CAD [facility] Main [place] [address] [place] [address] Mammography Report Signed Patient: Nataliia Nelson MR#: [id number] : 1980 Acct:[id number] Age/Sex: 42 / F ADM Date: 03/10/23 Loc: ID Room: Type: [facility] Attending Dr: Adelaide Zavala MD Copies to: Ai Pressley PAINT POURERSpikeC Adelaide Zavala MD-[facility] Ordering Provider: Adelaide Zavala MD-[facility] Date of Service: 03/10/23 MM/MM screening mammo BI w/CAD: screening;Encounter for screening mammogram for malignant ne CLINICAL DATA: Screening for malignancy. BILATERAL SCREENING MAMMOGRAMS - FULL FIELD DIGITAL WITH TOMOSYNTHESIS AND CAD Tomosynthesis craniocaudal and mediolateral oblique views of both breasts were obtained using low- dose digital technique. Comparison is made to the prior study from March 09, 2022. This examination was reviewed with the aid of CAD. The breast parenchyma has been largely replaced by fat. Benign calcifications are present. There are no developing masses, typically malignant calcifications or architectural distortion. There has been no significant interval change. MM/MM screening mammo BI w/CAD IMPRESSION: NO MAMMOGRAPHIC EVIDENCE OF MALIGNANCY. ROUTINE FOLLOW-UP IS RECOMMENDED IN ONE YEAR. RESULT CODE: 2 Benign Findings(s) DENSITY CODE: 1 (<25% glandular) FOLLOW UP: 1YR The false-negative rate of mammography is approximately 10-percent. Management of a palpable abnormality must be based on clinical grounds. Patient was entered into a reminder system with a target due date for the next mammogram. Impression dictated by: Izabela Spann M.D.03/10/2023 12:58 PM Dictation Location: [facility] Transcribed By: [facility] 03/10/23 1258 Dictated By: Izabela Spann MD 03/10/23 1256 Signed By: 03/10/23 1258 Normal [facility] A1C with Estimated Average G mile 02-03-2023 Glucose [Mass/Vol] 120 mg/dL Normal [facility] Comment on above: Order Comment: Reaso n for Exam Obesity;Gastroesophageal reflux disease, unspecified whether Result Comment: PERF ORMED BY: [facility] [address] [place] [address] PATHOLOGIST [employer]ITE MONITOR AAMIR TORRES M.D. Performed By: #### C MP, A1C WTH eA, CBC, [id number], TSH3 wRFLX, B12, LIPID #### [facility] [address] HbA1c (Bld) [Mass fraction] 5.8 % High 4.3-5.6 [facility] Comment on above: Order Comment: Reaso n for Exam Obesity;Gastroesophageal reflux disease, unspecified whether Result Comment: Incr eased risk for diabetes: 5.7 - 6.4 diabetes: >6.4 glycemic control for adults with diabetes: <7.0 Performed By: #### C MP, A1C WTH eA, CBC, [id number], TSH3 wRFLX, B12, LIPID #### [facility] [address] Alanine aminotransferase [En zymatic activity/volume] in Serum or PlasmaOrdered By: Katarzyna Carmichael on 02-03-2023 ALT [Catalytic activity/Vol] 8 U/L 7-52 [facility] Albumin [Mass/volume] in Ser um or Plasma by Bromocresol green (BCG) dye binding methoOrdered By: Katarzyna Carmichael on 02-03-2023 Albumin BCG dye [Mass/Vol] 4.5 g/dL 3.5-5.7 [facility] Alkaline phosphatase [Enzyma tic activity/volume] in Serum or PlasmaOrdered By: Katarzyna Carmichael on 02-03-2023 ALP [Catalytic activity/Vol] 55 U/L 34-104 [facility] Aspartate aminotransferase [ Enzymatic activity/volume] in Serum or PlasmaOrdered By: Katarzyna Carmichael on 02-03-2023 AST [Catalytic activity/Vol] 12 U/L 13-39 [facility] Basophils Auto (Bld) [#/Vol] Ordered By: Katarzyna Carmichael on 02-03-2023 Basophils (Bld) [#/Vol] 0.0 10*3/uL 0.0-0.2 [facility] Basophils/100 WBC Auto (Bld) Ordered By: Katarzyna Carmichael on 02-03-2023 Basophils/100 WBC (Bld) 0.5 % . [facility] Bilirubin.total [Mass/volume ] in Serum or PlasmaOrdered By: Katarzyna Carmichael on 02-03-2023 Bilirubin [Mass/Vol] 0.5 mg/dL 0.3-1.0 [facility] Calcium [Mass/volume] in Ser um or PlasmaOrdered By: Katarzyna Carmichael on 02-03-2023 Calcium [Mass/Vol] 9.5 mg/dL 8.6-10.3 [facility] Carbon dioxide, total [Moles /volume] in Serum or PlasmaOrdered By: Katarzyna Carmichael on 02-03-2023 CO2 [Moles/Vol] 29.9 mmol/L 21.0-31.0 [facility] Chloride [Moles/volume] in S richie or PlasmaOrdered By: Katarzyna Carmichael on 02-03-2023 Chloride [Moles/Vol] 105 mmol/L 98-107 [facility] Cholesterol [Mass/volume] in Serum or PlasmaOrdered By: Katarzyna Carmichael on 02-03-2023 Cholesterol [Mass/Vol] 172 mg/dL 140-200 [facility] Comment on above: Chol less than 200 m g/dl low riskChol 201-239 mg/dl borderline riskChol 240 mg/dl and greater high risk Cholesterol in LDL Calc [Mas s/Vol]Ordered By: Katarzyna Carmichael on 02-03-2023 Cholesterol in LDL [Mass/Vol] 102 mg/dL 0-100 [facility] Comment on above: LDL ATP III CLASSIFI CATIONLDL less than 100 mg/dL OptimalLDL 100-129 mg/dL Near or above optimalLDL 130-159 mg/dL Borderline highLDL 160-189 mg/dL HighLDL greater than 189 mg/dL Very high Cholesterol in VLDL Calc [Ma ss/Vol]Ordered By: Katarzyna Carmichael on 02-03-2023 Cholesterol in VLDL [Mass/Vol] 21 mg/dL [facility] Complete Blood Count Auto Di ffon 02-03-2023 Basophils (Bld) [#/Vol] 0.0 10*3/uL Normal 0.0-0.2 [facility] Comment on above: Order Comment: Reaso n for Exam Obesity;Gastroesophageal reflux disease, unspecified whether Result Comment: PERF ORMED BY: [place] [address] PATHOLOGIST [employer] SITE MONITOR AAMIR TORRES M.D. Performed By: #### C MP, A1C WTH eA, CBC, [id number], TSH3 wRFLX, B12, LIPID #### [facility] [address] Basophils/100 WBC (Bld) 0.5 % Normal . [facility] Comment on above: Order Comment: Reaso n for Exam Obesity;Gastroesophageal reflux disease, unspecified whether Performed By: #### C MP, A1C WTH eA, CBC, [id number], TSH3 wRFLX, B12, LIPID #### [address] Eosinophils (Bld) [#/Vol] 0.1 10*3/uL Normal 0.0-0.45 [facility] Comment on above: Order Comment: Reaso n for Exam Obesity;Gastroesophageal reflux disease, unspecified whether Performed By: #### C MP, A1C WTH eA, CBC, [id number], TSH3 wRFLX, B12, LIPID #### [address] Eosinophils/100 WBC (Bld) 2.4 % Normal . [facility] Comment on above: Order Comment: Reaso n for Exam Obesity;Gastroesophageal reflux disease, unspecified whether Performed By: #### C MP, A1C WTH eA, CBC, [id number], TSH3 wRFLX, B12, LIPID #### [facility] [address] Erythrocyte distribution width (RBC) [Ratio] 14.0 % Normal 11.9-15.3 [facility] Comment on above: Order Comment: Reaso n for Exam Obesity;Gastroesophageal reflux disease, unspecified whether Performed By: #### C MP, A1C WTH eA, CBC, [id number], TSH3 wRFLX, B12, LIPID #### [address] Hematocrit (Bld) [Volume fraction] 36.8 % Normal 34.0-46.4 [facility] Comment on above: Order Comment: Reaso n for Exam Obesity;Gastroesophageal reflux disease, unspecified whether Performed By: #### C MP, A1C WTH eA, CBC, [id number], TSH3 wRFLX, B12, LIPID #### [facility] [address] Hemoglobin (Bld) [Mass/Vol] 12.2 g/dL Normal 11.8-15.4 [facility] Comment on above: Order Comment: Reaso n for Exam Obesity;Gastroesophageal reflux disease, unspecified whether Performed By: #### C MP, A1C WTH eA, CBC, [id number], TSH3 wRFLX, B12, LIPID #### [facility] [address] Lymphocytes (Bld) [#/Vol] 1.9 10*3/uL Normal 1.00-4.8 [facility] Comment on above: Order Comment: Reaso n for Exam Obesity;Gastroesophageal reflux disease, unspecified whether Performed By: #### C MP, A1C WTH eA, CBC, [id number], TSH3 wRFLX, B12, LIPID #### [facility] [address] [place] [address] Lymphocytes/100 WBC (Bld) 32.5 % Normal . [facility] Comment on above: Order Comment: Reaso n for Exam Obesity;Gastroesophageal reflux disease, unspecified whether Performed By: #### C MP, A1C WTH eA, CBC, [id number], TSH3 wRFLX, B12, LIPID #### [facility] [address] MCH (RBC) [Entitic mass] 28.6 pg Normal 24.7-34.3 [facility] Comment on above: Order Comment: Reaso n for Exam Obesity;Gastroesophageal reflux disease, unspecified whether Performed By: #### C MP, A1C WTH eA, CBC, [id number], TSH3 wRFLX, B12, LIPID #### [facility] [address] [place] [id number] [facility] MCV (RBC) [Entitic vol] 86.2 fL Normal 80-100 [facility] Comment on above: Order Comment: Reaso n for Exam Obesity;Gastroesophageal reflux disease, unspecified whether Performed By: #### C MP, A1C WTH eA, CBC, [id number], TSH3 wRFLX, B12, LIPID #### [facility] [address] Mean Corpuscular HGB Conc 33.2 g/dL Normal 32.0-35.0 [facility] Comment on above: Order Comment: Reaso n for Exam Obesity;Gastroesophageal reflux disease, unspecified whether Performed By: #### C MP, A1C WTH eA, CBC, [id number], TSH3 wRFLX, B12, LIPID #### [facility] [address] [place] [address] [place] Monocytes (Bld) [#/Vol] 0.4 10*3/uL Normal 0.0-0.8 [facility] Comment on above: Order Comment: Reaso n for Exam Obesity;Gastroesophageal reflux disease, unspecified whether Performed By: #### C MP, A1C WTH eA, CBC, [id number], TSH3 wRFLX, B12, LIPID #### [facility] [address] [place] [address] [place] Monocytes/100 WBC (Bld) 6.9 % Normal . [facility] Comment on above: Order Comment: Reaso n for Exam Obesity;Gastroesophageal reflux disease, unspecified whether Performed By: #### C MP, A1C WTH eA, CBC, [id number], TSH3 wRFLX, B12, LIPID #### [facility] [address] [place] [address] [place] Neutrophils (Bld) [#/Vol] 3.3 10*3/uL Normal 1.8-7.7 [facility] Comment on above: Order Comment: Reaso n for Exam Obesity;Gastroesophageal reflux disease, unspecified whether Performed By: #### C MP, A1C WTH eA, CBC, [id number], TSH3 wRFLX, B12, LIPID #### [facility] [address] [place] [address] [place] Neutrophils/100 WBC (Bld) 57.7 % Normal . [facility] Comment on above: Order Comment: Reaso n for Exam Obesity;Gastroesophageal reflux disease, unspecified whether Performed By: #### C MP, A1C WTH eA, CBC, [id number], TSH3 wRFLX, B12, LIPID #### [facility] [address] NRBC% 0.1 /100{WBC} Normal 0-0.5 [facility] Comment on above: Order Comment: Reaso n for Exam Obesity;Gastroesophageal reflux disease, unspecified whether Performed By: #### C MP, A1C WTH eA, CBC, [id number], TSH3 wRFLX, B12, LIPID #### [facility] [address] Platelet mean volume (Bld) [Entitic vol] 8.9 fL Normal 6.3-10.7 [facility] Comment on above: Order Comment: Reaso n for Exam Obesity;Gastroesophageal reflux disease, unspecified whether Performed By: #### C MP, A1C WTH eA, CBC, [id number], TSH3 wRFLX, B12, LIPID #### [facility] [address] [place] [address] [place] Platelets (Bld) [#/Vol] 377 10*3/uL Normal 150-450 [facility] Comment on above: Order Comment: Reaso n for Exam Obesity;Gastroesophageal reflux disease, unspecified whether Performed By: #### C MP, A1C WTH eA, CBC, [id number], TSH3 wRFLX, B12, LIPID #### [facility] [address] [place] [address] RBC (Bld) [#/Vol] 4.26 10*6/uL Normal 3.60-5.00 [facility] Comment on above: Order Comment: Reaso n for Exam Obesity;Gastroesophageal reflux disease, unspecified whether Performed By: #### C MP, A1C WTH eA, CBC, [id number], TSH3 wRFLX, B12, LIPID #### [facility] [address] WBC (Bld) [#/Vol] 5.8 10*3/uL Normal 3.8-11.6 [facility] Comment on above: Order Comment: Reaso n for Exam Obesity;Gastroesophageal reflux disease, unspecified whether Performed By: #### C MP, A1C WTH eA, CBC, [id number], TSH3 wRFLX, B12, LIPID #### [facility] [address] Comprehensive Metabolic Pane antoinette 02-03-2023 Albumin [Mass/Vol] 4.5 g/dL Normal 3.5-5.7 [facility] Comment on above: Order Comment: Reaso n for Exam Obesity;Gastroesophageal reflux disease, unspecified whether Performed By: #### C MP, A1C WTH eA, CBC, [id number], TSH3 wRFLX, B12, LIPID #### [facility] [address] Albumin/Globulin [Mass ratio] 2.4 {ratio} Normal [facility] Comment on above: Order Comment: Reaso n for Exam Obesity;Gastroesophageal reflux disease, unspecified whether Performed By: #### C MP, A1C WTH eA, CBC, [id number], TSH3 wRFLX, B12, LIPID #### [facility] [address] ALP [Catalytic activity/Vol] 55 U/L Normal 34-104 [facility] Comment on above: Order Comment: Reaso n for Exam Obesity;Gastroesophageal reflux disease, unspecified whether Performed By: #### C MP, A1C WTH eA, CBC, [id number], TSH3 wRFLX, B12, LIPID #### [facility] [address] ALT [Catalytic activity/Vol] 8 U/L Normal 7-52 [facility] Comment on above: Order Comment: Reaso n for Exam Obesity;Gastroesophageal reflux disease, unspecified whether Performed By: #### C MP, A1C WTH eA, CBC, [id number], TSH3 wRFLX, B12, LIPID #### [facility] [address] [place] [id number] [facility] Anion gap [Moles/Vol] 10.8 mmol/L Normal 6.0-15.0 [facility] Comment on above: Order Comment: Reaso n for Exam Obesity;Gastroesophageal reflux disease, unspecified whether Performed By: #### C MP, A1C WTH eA, CBC, [id number], TSH3 wRFLX, B12, LIPID #### [facility] [address] AST [Catalytic activity/Vol] 12 U/L Low 13-39 [facility] Comment on above: Order Comment: Reaso n for Exam Obesity;Gastroesophageal reflux disease, unspecified whether Performed By: #### C MP, A1C WTH eA, CBC, [id number], TSH3 wRFLX, B12, LIPID #### [facility] [address] Bilirubin [Mass/Vol] 0.5 mg/dL Normal 0.3-1.0 [facility] Comment on above: Order Comment: Reaso n for Exam Obesity;Gastroesophageal reflux disease, unspecified whether Performed By: #### C MP, A1C WTH eA, CBC, [id number], TSH3 wRFLX, B12, LIPID #### [facility] [address] [place] [address] Calcium [Mass/Vol] 9.5 mg/dL Normal 8.6-10.3 [facility] Comment on above: Order Comment: Reaso n for Exam Obesity;Gastroesophageal reflux disease, unspecified whether Performed By: #### C MP, A1C WTH eA, CBC, [id number], TSH3 wRFLX, B12, LIPID #### [facility] [address] [place] [address] [place] Chloride [Moles/Vol] 105 mmol/L Normal 98-107 [facility] Comment on above: Order Comment: Reaso n for Exam Obesity;Gastroesophageal reflux disease, unspecified whether Performed By: #### C MP, A1C WTH eA, CBC, [id number], TSH3 wRFLX, B12, LIPID #### [facility] [address] [place] [address] CO2 [Moles/Vol] 29.9 mmol/L Normal 21.0-31.0 [facility] Comment on above: Order Comment: Reaso n for Exam Obesity;Gastroesophageal reflux disease, unspecified whether Performed By: #### C MP, A1C WTH eA, CBC, [id number], TSH3 wRFLX, B12, LIPID #### [facility] [address] Creatinine [Mass/Vol] 0.73 mg/dL Normal 0.60-1.20 [facility] Comment on above: Order Comment: Reaso n for Exam Obesity;Gastroesophageal reflux disease, unspecified whether Performed By: #### C MP, A1C WTH eA, CBC, [id number], TSH3 wRFLX, B12, LIPID #### [facility] [address] GFR/1.73 sq M.predicted MDRD (S/P/Bld) [Vol rate/Area] mL/min/{1.73_m2} Normal [facility] Comment on above: Order Comment: Reaso n for Exam Obesity;Gastroesophageal reflux disease, unspecified whether Performed By: #### C MP, A1C WTH eA, CBC, [id number], TSH3 wRFLX, B12, LIPID #### [facility] [address] Globulin (S) [Mass/Vol] 1.9 g/dL Normal [facility] Comment on above: Order Comment: Reaso n for Exam Obesity;Gastroesophageal reflux disease, unspecified whether Performed By: #### C MP, A1C WTH eA, CBC, [id number], TSH3 wRFLX, B12, LIPID #### [facility] [address] Glucose [Mass/Vol] 83 mg/dL Normal 74-109 [facility] Comment on above: Order Comment: Reaso n for Exam Obesity;Gastroesophageal reflux disease, unspecified whether Result Comment: [facility] Glucose Reference Range is dependent on time and content of last meal. Glucose of more than 200 mg/dL in a nonstressed, ambulatory subject supports the diagnosis of Diabetes Mellitus. ADA recommended reference range Performed By: #### C MP, A1C WTH eA, CBC, [id number], TSH3 wRFLX, B12, LIPID #### [facility] [address] [place] [address] [place] Potassium [Moles/Vol] 4.7 mmol/L Normal 3.5-5.1 [facility] Comment on above: Order Comment: Reaso n for Exam Obesity;Gastroesophageal reflux disease, unspecified whether Performed By: #### C MP, A1C WTH eA, CBC, [id number], TSH3 wRFLX, B12, LIPID #### [facility] [address] [place] [id number] [place] Protein [Mass/Vol] 6.4 g/dL Normal 6.4-8.9 [facility] Comment on above: Order Comment: Reaso n for Exam Obesity;Gastroesophageal reflux disease, unspecified whether Performed By: #### C MP, A1C WTH eA, CBC, [id number], TSH3 wRFLX, B12, LIPID #### [facility] [address] [place] [id number] [place] Sodium [Moles/Vol] 141 mmol/L Normal 136-145 [facility] Comment on above: Order Comment: Reaso n for Exam Obesity;Gastroesophageal reflux disease, unspecified whether Performed By: #### C MP, A1C WTH eA, CBC, [id number], TSH3 wRFLX, B12, LIPID #### [facility] [address] [place] [id number] [place] Urea nitrogen [Mass/Vol] 19 mg/dL Normal 7-25 [facility] Comment on above: Order Comment: Reaso n for Exam Obesity;Gastroesophageal reflux disease, unspecified whether Performed By: #### C MP, A1C WTH eA, CBC, [id number], TSH3 wRFLX, B12, LIPID #### [facility] [address] [place] [id number] [place] Creatinine [Mass/volume] in Serum or PlasmaOrdered By: Katarzyna Carmichael on 02-03-2023 Creatinine [Mass/Vol] 0.73 mg/dL 0.60-1.20 [facility] Eosinophils Auto (Bld) [#/Vo l]Ordered By: Katarzyna Carmichael on 02-03-2023 Eosinophils (Bld) [#/Vol] 0.1 10*3/uL 0.0-0.45 [facility] Eosinophils/100 WBC Auto (Bl d)Ordered By: Katarzyna Carmichael on 02-03-2023 Eosinophils/100 WBC (Bld) 2.4 % . [facility] Erythrocyte distribution wid th Auto (RBC) [Ratio]Ordered By: Katarzyna Carmichael on 02-03-2023 Erythrocyte distribution width (RBC) [Ratio] 14.0 % 11.9-15.3 [facility] Globulin Calc (S) [Mass/Vol] Ordered By: Katarzyna Carmichael on 02-03-2023 Globulin (S) [Mass/Vol] 1.9 g/dL [facility] Glucose [Mass/volume] in Ser um or PlasmaOrdered By: Katarzyna Carmichael on 02-03-2023 Glucose [Mass/Vol] 83 mg/dL 74-109 [facility] Comment on above: ADA recommended refe rence rangeRandom Glucose Reference Range is dependent on time and content of last meal. Glucose of more than 200 mg/dL in a nonstressed, ambulatory subject supports the diagnosis of Diabetes Mellitus. Glucose mean value [Mass/vol ume] in Blood Estimated from glycated hemoglobinOrdered By: Katarzyna Carmichael on 02-03-2023 Average glucose Estimated from glycated hemoglobin (Bld) [Mass/Vol] 120 mg/dL [facility] Hematocrit Auto (Bld) [Volum e fraction]Ordered By: Katarzyna Carmichael on 02-03-2023 Hematocrit (Bld) [Volume fraction] 36.8 % 34.0-46.4 [facility] Hemoglobin A1c percentageOrd ered By: Katarzyna Carmichael on 02-03-2023 HbA1c (Bld) [Mass fraction] 5.8 % 4.3-5.6 [facility] Comment on above: Increased risk for d iabetes: 5.7 - 6.4diabetes: >6.4glycemic control for adults with diabetes: <7.0 Hemoglobin [Mass/volume] in BloodOrdered By: Katarzyna Carmichael on 02-03-2023 Hemoglobin (Bld) [Mass/Vol] 12.2 g/dL 11.8-15.4 [facility] Laboratory - Chemistry and C hemistry - challengeOrdered By: Katarzyna Carmichael on 02-03-2023 GFR/1.73 sq M.predicted MDRD (S/P/Bld) [Vol rate/Area] mL/min/{1.73_m2} [facility] Leukocytes [#/volume] correc omar for nucleated erythrocytes in Blood by Automated counOrdered By: Katarzyna Carmichael on 02-03-2023 WBC corrected for nucl RBC Auto (Bld) [#/Vol] 5.8 10*3/uL 3.8-11.6 [facility] Lipid Panelon 02-03-2023 Cholesterol [Mass/Vol] 172 mg/dL Normal 140-200 [facility] Comment on above: Order Comment: Reaso n for Exam Obesity;Gastroesophageal reflux disease, unspecified whether Result Comment: Chol less than 200 mg/dl low risk Chol 201-239 mg/dl borderline risk Chol 240 mg/dl and greater high risk Performed By: #### C MP, A1C WTH eA, CBC, [id number], TSH3 wRFLX, B12, LIPID #### [facility] [address] [place] [address] [place] Cholesterol in HDL [Mass/Vol] 49 mg/dL Normal 35-85 [facility] Comment on above: Order Comment: Reaso n for Exam Obesity;Gastroesophageal reflux disease, unspecified whether Result Comment: HDL CHOL ATP-III CLASSIFICATION Cardiovascular Risk HDL > or equal to 60 mg/dL LOW HDL < 40 mg/dL HIGH Performed By: #### C MP, A1C WTH eA, CBC, [id number], TSH3 wRFLX, B12, LIPID #### [facility] [address] [place] [address] [place] Cholesterol.total/Catrina sterol in HDL [Mass ratio] 3.5 {ratio} Normal <5.0 [facility] Comment on above: Order Comment: Reaso n for Exam Obesity;Gastroesophageal reflux disease, unspecified whether Performed By: #### C MP, A1C WTH eA, CBC, [id number], TSH3 wRFLX, B12, LIPID #### [facility] [address] [place] [address] [place] LDL Cholesterol,Calculated 102 mg/dL High 0-100 [facility] Comment on above: Order Comment: Reaso n for Exam Obesity;Gastroesophageal reflux disease, unspecified whether Result Comment: LDL ATP III CLASSIFICATION LDL less than 100 mg/dL Optimal LDL 100-129 mg/dL Near or above optimal LDL 130-159 mg/dL Borderline high LDL 160-189 mg/dL High LDL greater than 189 mg/dL Very high Performed By: #### C MP, A1C WTH eA, CBC, [id number], TSH3 wRFLX, B12, LIPID #### [facility] [address] Triglyceride w/Reflex 106 mg/dL Normal 0-149 [facility] Comment on above: Order Comment: Reaso n for Exam Obesity;Gastroesophageal reflux disease, unspecified whether Result Comment: TRIG ATP III CLASSIFICATION TRIG less than 150 mg/dL Normal TRIG 150-199 mg/dL Borderline high TRIG 200-500 mg/dL High TRIG greater than 500 mg/dL Very high Standard traceable to the Center for Disease Conrtrol and Prevention (CDC) test method. Performed By: #### C MP, A1C WTH eA, CBC, [id number], TSH3 wRFLX, B12, LIPID #### [facility] [address] VLDL CHOLESTEROL 21 mg/dL Normal [facility] Comment on above: Order Comment: Reaso n for Exam Obesity;Gastroesophageal reflux disease, unspecified whether Performed By: #### C MP, A1C WTH eA, CBC, [id number], TSH3 wRFLX, B12, LIPID #### [facility] [address] Lymphocytes Auto (Bld) [#/Vo l]Ordered By: Katarzyna Carmichael on 02-03-2023 Lymphocytes (Bld) [#/Vol] 1.9 10*3/uL 1.00-4.8 [facility] Lymphocytes/100 WBC Auto (Bl d)Ordered By: Katarzyna Carmichael on 02-03-2023 Lymphocytes/100 WBC (Bld) 32.5 % . [facility] MCH Auto (RBC) [Entitic mass ]Ordered By: Katarzyna Carmichael on 02-03-2023 MCH (RBC) [Entitic mass] 28.6 pg 24.7-34.3 [facility] MCHC Auto (RBC) [Mass/Vol]Or dered By: Katarzyna Carmichael on 02-03-2023 MCHC (RBC) [Mass/Vol] 33.2 g/dL 32.0-35.0 [facility] MCV Auto (RBC) [Entitic vol] Ordered By: Katarzyna Carmichael on 02-03-2023 MCV (RBC) [Entitic vol] 86.2 fL 80-100 [facility] Monocytes Auto (Bld) [#/Vol] Ordered By: Katarzyna Carmichael on 02-03-2023 Monocytes (Bld) [#/Vol] 0.4 10*3/uL 0.0-0.8 [facility] Monocytes/100 WBC Auto (Bld) Ordered By: Katarzyna Carmichael on 02-03-2023 Monocytes/100 WBC (Bld) 6.9 % . [facility] Neutrophils Auto (Bld) [#/Vo l]Ordered By: Katarzyna Carmichael on 02-03-2023 Neutrophils (Bld) [#/Vol] 3.3 10*3/uL 1.8-7.7 [facility] Neutrophils/100 WBC Auto (Bl d)Ordered By: Katarzyna Carmichael on 02-03-2023 Neutrophils/100 WBC (Bld) 57.7 % . [facility] No Panel InformationOrdered By: Katarzyna Carmichael on 02-03-2023 Pharmacy Creatinine Clearance (Chem N/A [facility] Nucleated erythrocytes [Pres ence] in Blood by Automated countOrdered By: Katarzyna Carmichael on 02-03-2023 Nucleated RBC Auto Ql (Bld) 0.1 /100{WBC} 0-0.5 [facility] Platelet mean volume Auto (B ld) [Entitic vol]Ordered By: Katarzyna Carmichael on 02-03-2023 Platelet mean volume (Bld) [Entitic vol] 8.9 fL 6.3-10.7 [facility] Platelets Auto (Bld) [#/Vol] Ordered By: Katarzyna Carmichael on 02-03-2023 Platelets (Bld) [#/Vol] 377 10*3/uL 150-450 [facility] Potassium [Moles/volume] in Serum or PlasmaOrdered By: Katarzyna Carmichael on 02-03-2023 Potassium [Moles/Vol] 4.7 mmol/L 3.5-5.1 [facility] Protein [Mass/volume] in Ser um or PlasmaOrdered By: Katarzyna Carmichael on 02-03-2023 Protein [Mass/Vol] 6.4 g/dL 6.4-8.9 [facility] RBC Auto (Bld) [#/Vol]Ordere d By: Katarzyna Carmichael on 02-03-2023 RBC (Bld) [#/Vol] 4.26 10*6/uL 3.60-5.00 [facility] Serum or plasma albumin/glob ulin mass ratioOrdered By: Katarzyna Carmichael on 02-03-2023 Albumin/Globulin [Mass ratio] 2.4 {ratio} [facility] Serum or plasma anion gap de terminationOrdered By: Katarzyna Carmichael on 02-03-2023 Anion gap [Moles/Vol] 10.8 mmol/L 6.0-15.0 [facility] Serum or plasma high density lipoprotein (HDL) cholesterol measurementOrdered By: Katarzyna Carmichael on 02-03-2023 Cholesterol in HDL [Mass/Vol] 49 mg/dL 35-85 [facility] Comment on above: HDL CHOL ATP-III CLA SSIFICATION Cardiovascular RiskHDL > or equal to 60 mg/dL LOWHDL < 40 mg/dL HIGH Serum or plasma total choles terol/high density lipoprotein (HDL) cholesterol mass ratOrdered By: Katarzyna Carmichael on 02-03-2023 Cholesterol.total/Catrina sterol in HDL [Mass ratio] 3.5 {ratio} <5.0 [facility] Sodium [Moles/volume] in Ser um or PlasmaOrdered By: Katarzyna Carmichael on 02-03-2023 Sodium [Moles/Vol] 141 mmol/L 136-145 [facility] Thyroid Stim Hormone w/Rflxo n 02-03-2023 Thyroid Stim Hormone w/Rflx 2.13 u[iU]/mL Normal 0.45-5.33 [facility] Comment on above: Order Comment: Reaso n for Exam Obesity;Gastroesophageal reflux disease, unspecified whether Performed By: #### C MP, A1C WTH eA, CBC, [id number], TSH3 wRFLX, B12, LIPID #### [facility] [address] [place] [address] [facility] Thyrotropin [Units/volume] i n Serum or PlasmaOrdered By: Katarzyna Carmichael on 02-03-2023 TSH Qn 2.13 m[IU]/L 0.45-5.33 [facility] Triglyceride [Mass/volume] i n Serum or PlasmaOrdered By: Katarzyna Carmichael on 02-03-2023 Triglyceride [Mass/Vol] 106 mg/dL 0-149 [facility] Comment on above: TRIG ATP III CLASSIF ICATIONTRIG less than 150 mg/dL NormalTRIG 150-199 mg/dL Borderline highTRIG 200-500 mg/dL High TRIG greater than 500 mg/dL Very highStandard traceable to the Center for Disease Conrtrol and Prevention (CDC) test method. Urea nitrogen [Mass/volume] in Serum or PlasmaOrdered By: Katarzyna Carmichael on 02-03-2023 Urea nitrogen [Mass/Vol] 19 mg/dL 7-25 [facility] Vitamin B12on 02-03-2023 Cobalamin (Vitamin B12) [Mass/Vol] 382 pg/mL Normal 180-914 [facility] Comment on above: Order Comment: Reaso n for Exam Obesity;Gastroesophageal reflux disease, unspecified whether Performed By: #### C MP, A1C WTH eA, CBC, [id number], TSH3 wRFLX, B12, LIPID #### [facility] [address] [place] [id number] [facility] Vitamin B12 ser/plasOrdered By: Katarzyna Carmichael on 02-03-2023 Cobalamin (Vitamin B12) [Mass/Vol] 382 pg/mL 180-914 [facility] Vitamin D 25 Hydroxy Totalon 02-03-2023 Vitamin D 25 Hydroxy Total 17.0 ng/mL Low 30-100 [facility] Comment on above: Order Comment: Reaso n for Exam Obesity;Gastroesophageal reflux disease, unspecified whether Result Comment: MAMIE MIN D STATUS 25([place])VITAMIN D RANGE (ng/mL) Deficient <20 Insufficient 20 to <30 Sufficient 30 to 100 Reference: Adalid MF,Kelsey NC, Leah WOOD, et al. Evaluation,treatment, and prevention of vitamin D deficiency; an Endocrine Society clinical practice guideline. JCEM. 2010; 96(7):191-. PERFORMED BY: [facility] [address] [place] [address] PATHOLOGIST [employer]IT[employer] AAMIR TORRES M.D. Performed By: #### C MP, A1C WTH eA, CBC, [id number], TSH3 wRFLX, B12, LIPID #### [facility] [address] Vitamin D+Metabolites [Mass/ volume] in Serum or PlasmaOrdered By: Katarzyna Carmichael on 02-03-2023 Vitamin D+Metabolites [Mass/Vol] 17.0 ng/mL 30-100 [facility] Comment on above: VITAMIN D STATUS 25( [place])VITAMIN D RANGE (ng/mL) Deficient <20 Insufficient 20 to <30Sufficient 30 to 100Reference: Adalid MF,Kelsey NC, Leah WOOD, et al. Evaluation,treatment, and prevention of vitamin D deficiency; an Endocrine Society clinical practice guideline. JCEM. 2010; 96(7):1911-. 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 Original Report EXAMINATION: MRI HIP LT WO CON HISTORY: Pain of left hip joint COMPARISON: No relevant comparison available. TECHNIQUE: A comprehensive examination was performed utilizing a variety of imaging planes and imaging parameters to optimize visualization of suspected pathology. Images were performed without contrast. FINDINGS: FEMORAL HEAD: Marked narrowing of the superior aspect of the left hip joint space secondary to cartilage loss with suspected brda-pz-eeni contact. Mild edema within the femoral head and neck without fracture or bone lesion. ACETABULUM: Marked thinning of articular cartilage along the roof of the acetabulum. OTHER BONES: Normal appearance of the visualized portion of the pelvis. LABRUM: No visible tear. EFFUSIONS: None. No synovitis or loose bodies. BURSAE: Normal. No evidence of iliopsoas or trochanteric bursitis. TENDONS: Normal. Normal gluteus tendons, iliopsoas tendon, and hamstring origin. MUSCLES: Normal. No tear or strain. No inappropriate atrophy. OTHER: Negative. IMPRESSION: 1. No labral tear. 2. Marked thinning of the acetabular and femoral head cartilage along the weightbearing surfaces resulting in bbay-qo-qvop contact. Normal [facility] CBC AUTO DIFFon 09-16-2022 BASO # 0.0 103/ul Normal 0.0-0.1 [facility] Comment on above: Performed By: #### C BC #### [facility] [address] [place] [address] Dr. Donnie Gray Basophils/100 WBC (Bld) 0.1 % Critically low 0.2-2.0 [facility] Comment on above: Performed By: #### C BC #### [facility] [address] [place] [address] Dr. Donnie Gray EO # 0.0 103/ul Normal 0.0-0.7 [facility] Comment on above: Performed By: #### C BC #### [facility] [address] [place] [address] Dr. Donnie Gray Eosinophils/100 WBC (Bld) 0.0 % Critically low 0.9-7.0 [facility] Comment on above: Performed By: #### C BC #### [facility] [address] [place] [address] Dr. Donnie Gray Erythrocyte distribution width (RBC) [Ratio] 13.4 % Normal 11.0-15.0 [facility] Comment on above: Performed By: #### C BC #### [facility] [address] [place] [address] Dr. Donnie Gray Hematocrit (Bld) [Volume fraction] 36.0 % Normal 36.0-48.0 [facility] Comment on above: Performed By: #### C BC #### [facility] [address] [place] [address] Dr. Donnie Gray Hemoglobin (Bld) [Mass/Vol] 11.8 g/dL Critically low 12.0-16.0 [facility] Comment on above: Performed By: #### C BC #### [facility] [address] [place] [address] Dr. Donnie Gray IG # 0.04 10e3/ul Critically high 0.00-0.03 [facility] Comment on above: Performed By: #### C BC #### [facility] [address] [place] [address] Dr. Donnie Gray IG % 0.3 % Normal 0.0-0.5 [facility] Comment on above: Performed By: #### C BC #### [facility] [address] [place] [address] Dr. Donnie Gray LYMPH # 1.0 103/ul Critically low 1.2-3.8 [facility] Comment on above: Performed By: #### C BC #### [facility] [address] [place] [address] Dr. Donnie Gray Lymphocytes/100 WBC (Bld) 7.6 % Critically low 20.5-60.0 [facility] Comment on above: Performed By: #### C BC #### [facility] [address] [place] [address] Dr. Donnie Gray MANUAL DIFF REQ NO Normal [facility] Comment on above: Performed By: #### C BC #### [facility] [address] [place] [address] Dr. Donnie Gray MCH (RBC) [Entitic mass] 28.6 pg Normal 26.7-34.0 [facility] Comment on above: Performed By: #### C BC #### [facility] [address] [place] [address] Dr. Donnie Gray MCHC (RBC) [Mass/Vol] 32.8 g/dL Normal 29.9-35.2 [facility] Comment on above: Performed By: #### C BC #### [facility] [address] [place] [address] Dr. Donnie Gray MCV (RBC) [Entitic vol] 87.4 fL Normal 81.0-99.0 [facility] Comment on above: Performed By: #### C BC #### [facility] [address] [place] [address] Dr. Donnie Gray MONO # 0.8 103/ul Normal 0.3-0.8 [facility] Comment on above: Performed By: #### C BC #### [facility] [address] [place] [address] Dr. Donnie Gray Monocytes/100 WBC (Bld) 6.2 % Normal 1.7-12.0 [facility] Comment on above: Performed By: #### C BC #### [facility] [address] [place] [address] Dr. Donnie Gray NEUT # 11.0 103/ul Critically high 1.4-6.5 [facility] Comment on above: Performed By: #### C BC #### [facility] [address] [place] [address] Dr. Donnie Gray Neutrophils/100 WBC (Bld) 85.8 % Critically high 43.0-75.0 [facility] Comment on above: Performed By: #### C BC #### [facility] [address] [place] [address] Dr. Donnie Gray Platelet mean volume (Bld) [Entitic vol] 10.0 fL Normal 9.5-13.5 [facility] Comment on above: Performed By: #### C BC #### [facility] [address] [place] [address] Dr. Donnie Gray PLT 398 103/ul Normal 150-450 [facility] Comment on above: Performed By: #### C BC #### [facility] [address] [place], [place] [id number] Dr. Donnie Gray RBC 4.12 106/ul Critically low 4.20-5.40 [facility] Comment on above: Performed By: #### C BC #### [facility] [address] [place] [address] Dr. Donnie Gray WBC 12.8 103/ul Critically high 4.0-11.0 [facility] Comment on above: Performed By: #### C BC #### [facility] [address] [address] [address] Donnie Gray CRPon 09-16-2022 CRP [Mass/Vol] mg/L Normal <=1.0 [facility] Comment on above: Performed By: #### C RP, URIC #### [facility] [address] [place] [address] Dr. Donnie Gray SED RATE WESTERGRENon 2021 SED RATE 18 mm/hr Normal <=20 [facility] Comment on above: Performed By: #### S EDR #### [facility] [address] [place] [address] Dr. Donnie Gray URIC ACID SERUMon 09-16-2022 Urate [Mass/Vol] 3.1 mg/dL Normal 2.6-6.0 [facility] Comment on above: Performed By: #### C RP, URIC #### [facility] [address] [place] [address] Dr. Donnie Gray XR ARTHRO HIP LT EXPon 09-15 XR ARTHRO HIP LT EXP EXAMINATION: XR ARTHRO HIP LT EXP HISTORY: Pain of left hip joint COMPARISON: No relevant comparison available. TECHNIQUE: An arthrogram was performed under fluoroscopic guidance using non-ionic contrast material in the usual sterile manner after obtaining informed consent. Standard level fluoroscopic mode of operation utilized. FINDINGS: JOINT: NEEDLE: 25 gauge, 3.5 spinal needle. MEDICATION: Approximately 8 mL injected into joint space consisting of a mixture of 5 cc Omnipaque-300, 5 cc 1% Xylocaine and 0.2 cc Dotarem, and 40 mg Kenalog. TECHNIQUE: Anterior approach under fluoroscopic guidance. CLINICAL: Decreased pain following the injection (4/10 preinjection; 1/10 post injection). COMPLICATIONS: None. BONES: No fracture, significant osseous degenerative changes, or visible bone lesion. BURSA: No visible extension of contrast into the subacromial-subdeltoi d bursa at this time. OTHER: Negative. IMPRESSION: 1. Technically successful arthrogram without complication. 2. Please see separate MRI arthrogram report. Electronically authenticated by: CONY ROSARIO Date: 2022-09-15 12:14 Normal [facility] COVID Quick Testingon 2021 Result Positive [facility] Other COVID Quick Testingon 2021 Result Negative [facility] Other Vital Signs Date Time Vital Sign Value Performing Clinician Facility 12-30-2023 09:00-0500 Body height 163.83 cm Billy Darius Other [facility] Other 12-30-2023 09:00-0500 Diastolic blood pressure 76 mm[Hg] Billyvalentina Mccoy Other [facility] Other 12-30-2023 09:00-0500 SaO2% (BldA) [Mass fraction] 97 % Billy Darius Other [facility] Other 12-30-2023 09:00-0500 Systolic blood pressure 118 mm[Hg] Billy Mccoy Other [facility] Other 11-30-2023 11:15-0500 Body height 163.83 cm Eleanor Singleton Other [facility] Other 11-30-2023 11:15-0500 Body mass index (BMI) [Ratio] 40.22 kg/m2 Eleanor Singleton Other [facility] Other 11-30-2023 11:15-0500 Body weight 107.96 kg Eleanor Singleton Other [facility] Other 11-30-2023 11:15-0500 Diastolic blood pressure 72 mm[Hg] Eleanor Singleton Other [facility] Other 11-30-2023 11:15-0500 Respiratory rate 18 /min Eleanor Singleton Other [facility] Other 11-30-2023 11:15-0500 SaO2% (BldA) [Mass fraction] 97 % Eleanor Singleton Other [facility] Other 11-30-2023 11:15-0500 Systolic blood pressure 111 mm[Hg] Eleanor Singleton Other [facility] Other 11-01-2023 14:15-0500 Body height 163.83 cm Eleanor Singleton Other [facility] Other 11-01-2023 14:15-0500 Body mass index (BMI) [Ratio] 40.89 kg/m2 Eleanor Singleton Other [facility] Other 11-01-2023 14:15-0500 Body weight 109.77 kg Eleanor Singleton Other [facility] Other 11-01-2023 14:15-0500 Diastolic blood pressure 70 mm[Hg] Eleanor Singleton Other [facility] Other 11-01-2023 14:15-0500 SaO2% (BldA) [Mass fraction] 97 % Eleanor Singleton Other [facility] Other 11-01-2023 14:15-0500 Systolic blood pressure 110 mm[Hg] Eleanor Singleton Other [facility] Other 09-06-2023 13:45-0400 Body height 163.83 cm Raman Laura Other [facility] Other 09-06-2023 13:45-0400 Body mass index (BMI) [Ratio] 42.25 kg/m2 Raman Laura Other [facility] Other 09-06-2023 13:45-0400 Body weight 113.4 kg Raman Laura Other [facility] Other 09-06-2023 13:45-0400 Diastolic blood pressure 78 mm[Hg] Raman Laura Other [facility] Other 09-06-2023 13:45-0400 SaO2% (BldA) [Mass fraction] 99 % Raman Laura Other [facility] Other 09-06-2023 13:45-0400 Systolic blood pressure 118 mm[Hg] Raman Laura Other [facility] Other 09-01-2023 09:30-0400 Body height 163.83 cm Eleanor Singleton Other [facility] Other 09-01-2023 09:30-0400 Body mass index (BMI) [Ratio] 42.62 kg/m2 Eleanor Singleton Other [facility] Other 09-01-2023 09:30-0400 Body weight 114.4 kg Eleanor Singleton Other [facility] Other 09-01-2023 09:30-0400 Diastolic blood pressure 90 mm[Hg] Eleanor Singleton Other [facility] Other 09-01-2023 09:30-0400 SaO2% (BldA) [Mass fraction] 96 % Eleanor Singleton Other [facility] Other 09-01-2023 09:30-0400 Systolic blood pressure 138 mm[Hg] Eleanor Singleton Other [facility] Other 08-12-2023 12:35-0400 Body height 162.6 cm Raya Oliva MD Work Phone: [facility] 08-12-2023 12:35-0400 Body weight 115.72 kg Raya Oliva MD Work Phone: [facility] 08-02-2023 15:15-0400 Body height 163.83 cm Eleanor Singleton Other [facility] Other 08-02-2023 15:15-0400 Diastolic blood pressure 80 mm[Hg] Eleanor Singleton Other [facility] Other 08-02-2023 15:15-0400 SaO2% (BldA) [Mass fraction] 98 % Eleanor Singleton Other [facility] Other 08-02-2023 15:15-0400 Systolic blood pressure 120 mm[Hg] Eleanor Singleton Other [facility] Other 07-20-2023 14:45-0400 Body height 163.83 cm Raman Laura Other [facility] Other 07-20-2023 14:45-0400 Body mass index (BMI) [Ratio] 43.26 kg/m2 Raman Laura Other [facility] Other 07-20-2023 14:45-0400 Body weight 116.12 kg Raman Laura Other [facility] Other 07-20-2023 14:45-0400 Diastolic blood pressure 81 mm[Hg] Raman Laura Other [facility] Other 07-20-2023 14:45-0400 SaO2% (BldA) [Mass fraction] 99 % Raman Laura Other [facility] Other 07-20-2023 14:45-0400 Systolic blood pressure 117 mm[Hg] Raman Laura Other [facility] Other 06-30-2023 09:00-0400 Body height 163.83 cm Eleanor Singleton Other [facility] Other 06-30-2023 09:00-0400 Body mass index (BMI) [Ratio] 43.43 kg/m2 Eleanor Singleton Other [facility] Other 06-30-2023 09:00-0400 Body weight 116.58 kg Eleanor Singleton Other [facility] Other 06-30-2023 09:00-0400 Diastolic blood pressure 90 mm[Hg] Eleanor Singleton Other [facility] Other 06-30-2023 09:00-0400 Systolic blood pressure 138 mm[Hg] Eleanor Singleton Other [facility] Other 06-10-2023 09:45-0400 Body height 163.83 cm Sandra Fitt Other [facility] Other 06-10-2023 09:45-0400 Body mass index (BMI) [Ratio] 43.09 kg/m2 Sandra Fitt Other [facility] Other 06-10-2023 09:45-0400 Body weight 115.67 kg Sandra Fitt Other [facility] Other 06-02-2023 11:30-0400 Body height 163.83 cm Eleanor Singleton Other [facility] Other 06-02-2023 11:30-0400 Body mass index (BMI) [Ratio] 42.55 kg/m2 Eleanor Singleton Other [facility] Other 06-02-2023 11:30-0400 Body weight 114.22 kg Eleanor Singleton Other [facility] Other 06-02-2023 11:30-0400 Diastolic blood pressure 70 mm[Hg] Eleanor Singleton Other [facility] [employer] Other 06-02-2023 11:30-0400 SaO2% (BldA) [Mass fraction] 98 % Eleanor Singleton Other [facility] Other 06-02-2023 11:30-0400 Systolic blood pressure 110 mm[Hg] Eleanor Singleton Other [facility] Other 05-09-2023 12:45-0400 Body height 163.83 cm Katarzyna Missler Other [facility] Other 05-09-2023 12:45-0400 Body mass index (BMI) [Ratio] 42.09 kg/m2 Katarzyna Missler Other [facility] Other 05-09-2023 12:45-0400 Body weight 112.99 kg Katarzyna Missler Other [facility] Other 05-09-2023 12:45-0400 Diastolic blood pressure 79 mm[Hg] Katarzyna Missler Other [facility] Other 05-09-2023 12:45-0400 Respiratory rate 18 /min Katarzyna Carmichael Other [facility] Other 05-09-2023 12:45-0400 SaO2% (BldA) [Mass fraction] 97 % Katarzyna Lariosler Other [facility] Other 05-09-2023 12:45-0400 Systolic blood pressure 111 mm[Hg] Katarzyna Missler Other [facility] Other 05-06-2023 09:45-0400 Body height 163.83 cm Sandra Fitt Other [facility] Other 05-06-2023 09:45-0400 Body mass index (BMI) [Ratio] 42.16 kg/m2 Sandra Fitt Other [facility] Other 05-06-2023 09:45-0400 Body weight 113.17 kg Sandra Fitt Other [facility] Other 03-22-2023 15:30-0400 Body height 163.83 cm Eleanor Singleton Other [facility] Other 03-22-2023 15:30-0400 Body mass index (BMI) [Ratio] 42.68 kg/m2 Eleanor Singleton Other [facility] Other 03-22-2023 15:30-0400 Body weight 114.58 kg Eleanor Singleton Other [facility] Other 03-22-2023 15:30-0400 Diastolic blood pressure 82 mm[Hg] Eleanor Singleton Other [facility] Other 03-22-2023 15:30-0400 SaO2% (BldA) [Mass fraction] 98 % Eleanor Singleton Other [facility] Other 03-22-2023 15:30-0400 Systolic blood pressure 130 mm[Hg] Eleanor Singleton Other [facility] Other 03-17-2023 14:45-0400 Body height 163.83 cm Sandra Fitt Other [facility] Other 03-17-2023 14:45-0400 Body mass index (BMI) [Ratio] 43.28 kg/m2 Sandra Fitt Other [facility] Other 03-17-2023 14:45-0400 Body weight 116.17 kg Sandra Fitt Other [facility] Other 03-09-2023 11:30-0400 Body height 163.83 cm Katarzyna Missler Other [facility] Other 03-09-2023 11:30-0400 Body mass index (BMI) [Ratio] 44.21 kg/m2 Katarzyna Missler Other [facility] Other 03-09-2023 11:30-0400 Body weight 118.66 kg Katarzyna Missler Other [facility] Other 03-09-2023 11:30-0400 Diastolic blood pressure 90 mm[Hg] Katarzyna Missler Other [facility] Other 03-09-2023 11:30-0400 Respiratory rate 18 /min Katarzyna Missler Other [facility] Other 03-09-2023 11:30-0400 SaO2% (BldA) [Mass fraction] 98 % Katarzyna Carmichael Other [facility] Other 03-09-2023 11:30-0400 Systolic blood pressure 127 mm[Hg] Katarzyna Lariosler Other [facility] Other 02-22-2023 14:15-0400 Body height 163.83 cm Eleanor Singleton Other [facility] Other 02-22-2023 14:15-0400 Body mass index (BMI) [Ratio] 43.6 kg/m2 Eleanor Singleton Other [facility] Other 02-22-2023 14:15-0400 Body weight 117.03 kg Eleanor Singleton Other [facility] Other 02-22-2023 14:15-0400 Diastolic blood pressure 84 mm[Hg] Eleanor Singleton Other [facility] Other 02-22-2023 14:15-0400 SaO2% (BldA) [Mass fraction] 99 % Eleanor Singleton Other [facility] Other 02-22-2023 14:15-0400 Systolic blood pressure 120 mm[Hg] Eleanor Singleton Other [facility] Other 01-18-2023 14:00-0500 Body height 163.83 cm Eleanor Singleton Other [facility] Other 01-18-2023 14:00-0500 Diastolic blood pressure 72 mm[Hg] Eleanor Singleton Other [facility] Other 01-18-2023 14:00-0500 Respiratory rate 18 /min Eleanor Singleton Other [facility] Other 01-18-2023 14:00-0500 SaO2% (BldA) [Mass fraction] 98 % Eleanor Singleton Other [facility] Other 01-18-2023 14:00-0500 Systolic blood pressure 128 mm[Hg] Eleanor Singleton Other [facility] Other 12-14-2022 15:15-0500 Body height 163.83 cm Eleanor Singleton Other [facility] Other 12-14-2022 15:15-0500 Body mass index (BMI) [Ratio] 42.75 kg/m2 Eleanor Singleton Other [facility] Other 12-14-2022 15:15-0500 Body weight 114.76 kg Eleanor Singleton Other [facility] Other 12-14-2022 15:15-0500 Diastolic blood pressure 90 mm[Hg] Eleanor Singleton Other [facility] Other 12-14-2022 15:15-0500 SaO2% (BldA) [Mass fraction] 98 % Eleanor Singleton Other [facility] Other 12-14-2022 15:15-0500 Systolic blood pressure 130 mm[Hg] Eleanor Singleton Other [facility] Other 11-17-2022 16:45-0500 Body height 163.83 cm Billy Mccoy Other [facility] Other 11-17-2022 16:45-0500 Body mass index (BMI) [Ratio] 42.99 kg/m2 Billy Mccoy Other [facility] Other 11-17-2022 16:45-0500 Body weight 115.4 kg Billy Mccoy Other [facility] Other 11-17-2022 16:45-0500 Diastolic blood pressure 84 mm[Hg] Billy Mccoy Other [facility] Other 11-17-2022 16:45-0500 SaO2% (BldA) [Mass fraction] 98 % Billy Mccoy Other [facility] Other 11-17-2022 16:45-0500 Systolic blood pressure 130 mm[Hg] Billy Mccoy Other [facility] Other 10-19-2022 15:45-0500 Body height 163.83 cm Eleanor Singleton Other [facility] Other 10-19-2022 15:45-0500 Diastolic blood pressure 80 mm[Hg] Eleanor Singleton Other [facility] Other 10-19-2022 15:45-0500 SaO2% (BldA) [Mass fraction] 99 % Eleanor Singleton Other [facility] Other 10-19-2022 15:45-0500 Systolic blood pressure 110 mm[Hg] Eleanor Singleton Other [facility] Other 10-07-2022 10:45-0500 Body height 163.83 cm Eleanor Singleton Other [facility] Other 10-07-2022 10:45-0500 Body mass index (BMI) [Ratio] 43.93 kg/m2 Eleanor Singleton Other [facility] Other 10-07-2022 10:45-0500 Body weight 117.94 kg Eleanor Singleton Other [facility] Other 10-07-2022 10:45-0500 Diastolic blood pressure 80 mm[Hg] Eleanor Singleton Other [facility] Other 10-07-2022 10:45-0500 SaO2% (BldA) [Mass fraction] 98 % Eleanor Singleton Other [facility] Other 10-07-2022 10:45-0500 Systolic blood pressure 120 mm[Hg] Eleanor Singleton Other [facility] Other 05-17-2022 08:21-0400 Body height 165.1 cm DO Ricky Quarles Work Phone: [facility] 05-17-2022 08:21-0400 Body mass index (BMI) [Ratio] 43.2 kg/m2 DO Ricky Quarles Work Phone: [facility] 05-17-2022 08:21-0400 Body temperature 98.3 [degF] DO Ricky Quarles Work Phone: [facility] 05-17-2022 08:21-0400 Body weight 117.93 kg DO Ricky Quarles Work Phone: [facility] 05-17-2022 08:21-0400 Diastolic blood pressure 110 mm[Hg] DO Ricky Quarles Work Phone: [facility] 05-17-2022 08:21-0400 Heart rate 95 /min DO Ricky Quarles Work Phone: [facility] 05-17-2022 08:21-0400 Respiratory rate 18 /min DO Ricky Quarles Work Phone: [facility] 05-17-2022 08:21-0400 SaO2% (BldA) [Mass fraction] 98 % DO Ricky Quarles Work Phone: [facility] 05-17-2022 08:21-0400 Systolic blood pressure 175 mm[Hg] DO Ricky Quarles Work Phone: [facility] 03-01-2022 09:15-0400 Body height 163.83 cm Ricky Quarles Other [facility] Other 03-01-2022 09:15-0400 Body mass index (BMI) [Ratio] 43.61 kg/m2 Ricky Quarles Other [facility] Other 03-01-2022 09:15-0400 Body weight 117.07 kg Ricky Quarles Other [facility] Other 03-01-2022 09:15-0400 Diastolic blood pressure 96 mm[Hg] Ricky Quarles Other [facility] Other 03-01-2022 09:15-0400 Respiratory rate 18 /min Ricky Quarles Other [facility] Other 03-01-2022 09:15-0400 SaO2% (BldA) [Mass fraction] 98 % Ricky Quarles Other [facility] Other 03-01-2022 09:15-0400 Systolic blood pressure 140 mm[Hg] Ricky Quarles Other [facility] Other 01-26-2022 16:00-0500 Body height 163.83 cm Ricky Quarles Other [facility] Other 01-26-2022 16:00-0500 Body mass index (BMI) [Ratio] 43.77 kg/m2 Ricky Quarles Other [facility] Other 01-26-2022 16:00-0500 Body temperature 96.4 [degF] Ricky Quarles Other [facility] Other 01-26-2022 16:00-0500 Body weight 117.48 kg Ricky Quarles Other [facility] Other 01-26-2022 16:00-0500 Diastolic blood pressure 82 mm[Hg] Ricky Quarles Other [facility] Other 01-26-2022 16:00-0500 Respiratory rate 18 /min Ricky Quarles Other [facility] Other 01-26-2022 16:00-0500 SaO2% (BldA) [Mass fraction] 99 % Ricky Quarles Other [facility] Other 01-26-2022 16:00-0500 Systolic blood pressure 114 mm[Hg] Ricky Quarles Other [facility] Other Encounters Encounter Date Encounter Type Care Provider Facility Start: 12-30-2023 End: 12-30-2023 ambulatory Billy Mccoy Other [facility] Other Start: 12-30-2023 Office outpatient vi sit 25 minutes Billy Mccoy [facility] Start: 12-19-2023 End: 12-19-2023 ambulatory [facility] Start: 12-19-2023 End: 12-19-2023 Encounter for other preprocedural examination [facility] Start: 11-30-2023 End: 11-30-2023 ambulatory VERONICA PINEDA Not Available Start: 11-30-2023 Office outpatient vi sit 15 minutes Eleanor Singleton [facility] Start: 11-09-2023 End: 11-09-2023 ambulatory PHYSICIAN NO FAMILY Facility:[facility] Start: 11-09-2023 End: 11-09-2023 ambulatory GIACOMO-Regina Pressley Work Phone: [facility] Work Phone: Start: 11-09-2023 End: 11-09-2023 Patient encounter procedure PAINT POURER-Regina Pressley Work Phone: [facility] Work Phone: Start: 11-02-2023 End: 11-02-2023 ambulatory Eleanor Singleton Other [facility] Other Start: 11-02-2023 Telephone encounter Eleanor Singleton [facility] Start: 11-01-2023 End: 11-01-2023 ambulatory Eleanor Singleton Other [facility] Technology Other Start: 11-01-2023 Office outpatient vi sit 15 minutes Eleanor Singleton [facility] [place] Start: 10-27-2023 End: 10-27-2023 ambulatory ADELAIDE ZAVALA Not Available Start: 10-19-2023 End: 10-20-2023 ambulatory VERONICA PINEDA Not Available Start: 10-03-2023 End: 10-03-2023 ambulatory Billy Mccoy Other [employer] Other Start: 10-03-2023 Telephone encounter Billyvalentina Mccoy [facility] Start: 09-29-2023 End: 09-29-2023 ambulatory Eleanor Singleton Other [employer] Other Start: 09-29-2023 Office outpatient vi sit 15 minutes Eleanor Singleton [facility] Start: 09-06-2023 End: 09-06-2023 ambulatory Raman Laura Facility:[facility] Start: 09-06-2023 End: 09-06-2023 Patient encounter procedure PHYSICIAN NO [facility] Work Phone: Start: 09-06-2023 End: 09-06-2023 ambulatory PHYSICIAN NO [facility] Work Phone: Start: 09-06-2023 Office outpatient vi sit 40 minutes Raman Laura [facility] Start: 09-01-2023 Office outpatient vi sit 15 minutes Eleanor Singleton [facility] Start: 09-01-2023 End: 09-01-2023 ambulatory Raman Laura Facility:[facility] Start: 09-01-2023 End: 09-01-2023 ambulatory PHYSICIAN NO [facility] Work Phone: Start: 09-01-2023 End: 09-01-2023 Patient encounter procedure PHYSICIAN NO [facility] Main [place] Work Phone: Start: 08-12-2023 End: 08-12-2023 ambulatory RAYA OLIVA Facility:[facility] Start: 08-12-2023 End: 08-12-2023 Patient encounter procedure Raya Oliva MD Work Phone: Orthopaedics Comment on above: Arthritis of hip (Pr imary Dx); Avascular necrosis of left femur (HCC) Start: 08-12-2023 End: 08-12-2023 Subsequent hospital visit by physician Xr [facility] Comment on above: Pain [R52] Start: 08-02-2023 End: 08-02-2023 ambulatory Eleanor Singleton Other [employer] Other Start: 08-02-2023 Office outpatient vi sit 15 minutes Eleanor Singleton [facility] Start: 07-20-2023 End: 07-20-2023 Patient encounter procedure PHYSICIAN NO [facility] Work Phone: Start: 07-20-2023 End: 07-20-2023 ambulatory PHYSICIAN NO [facility] Work Phone: Start: 07-20-2023 Office outpatient vi sit 25 minutes Raman Laura [facility] Start: 06-30-2023 End: 06-30-2023 ambulatory Eleanor Singleton Other [employer] Other Start: 06-30-2023 Office outpatient vi sit 15 minutes Eleanor Singleton [facility] Start: 06-21-2023 End: 06-21-2023 ambulatory Raman Laura Facility:[facility] Start: 06-21-2023 End: 06-21-2023 Patient encounter procedure PHYSICIAN NO [facility] Work Phone: Start: 06-14-2023 End: 06-14-2023 ambulatory Raman Laura Other [employer] Other Start: 06-14-2023 Telephone encounter Raman Laura [facility] Start: 06-10-2023 ([facility] FU) [facility] F/ U Registerd Nursing Secretary Sandra Hurley [facility] Start: 06-10-2023 End: 06-11-2023 ambulatory Eleanor Singleton [employer] Other Start: 06-10-2023 Registered Recurring PHYSICIAN NO [facility] Work Phone: Start: 06-02-2023 End: 06-02-2023 ambulatory Eleanor Singleton Other [employer] Other Start: 06-02-2023 Office outpatient vi sit 15 minutes Eleanor Singleton [facility] Start: 05-09-2023 [facility] f/u Katarzyna Carmichael [facility] Start: 05-09-2023 End: 05-09-2023 ambulatory Katarzyna Carmichael Other [employer] Other Start: 05-06-2023 ([facility] FU) [facility] F/ U Registerd Nursing Secretary Sandrafrederick Gaystella [facility] Start: 05-06-2023 End: 05-06-2023 ambulatory Sandra Mei Other [employer] Other Start: 05-02-2023 End: 05-02-2023 ambulatory Billy Mccoy Other [employer] Other Start: 05-02-2023 Telephone encounter Billyvaelntina Mccoy [facility] Start: 04-27-2023 End: 04-27-2023 ambulatory Katarzyna Carmichael Other [employer] Other Start: 04-27-2023 Telephone encounter Katarzyna Carmichael [facility] Start: 04-24-2023 End: 04-24-2023 ambulatory Ai Pressley Facility:[facility] Start: 04-24-2023 End: 04-24-2023 ambulatory PAINT POURER-C Ai Pressley Work Phone: [facility] Work Phone: Start: 04-24-2023 End: 04-24-2023 Patient encounter procedure PAINT POURER-C Ai Pressley Work Phone: [facility]Electrodiagnostics Work Phone: Start: 04-14-2023 End: 04-14-2023 ambulatory Katarzyna Carmichael Facility:[facility] Start: 04-14-2023 End: 04-14-2023 Patient encounter procedure PAINT POURER-C Ai Pressley Work Phone: [facility] Work Phone: Start: 04-04-2023 End: 04-04-2023 ambulatory Eleanor Singleton Other [employer] Other Start: 04-04-2023 Encounter by armen migue iliana Eleanor Singleton [facility] Start: 03-22-2023 End: 03-22-2023 ambulatory Eleanor Singleton Other [employer] Other Start: 03-22-2023 Office outpatient vi sit 15 minutes Eleanor Singleton [facility] [place] Start: 03-17-2023 Registered Recurring PAINT POURER-C Lonnie Pressley Work Phone: [facility] Work Phone: Start: 03-17-2023 ([facility] WMNI) WMN Init ial Provider Sandra Hurley [facility] Start: 03-17-2023 End: 03-17-2023 ambulatory Sandra Fitt Other [employer] Other Start: 03-15-2023 End: 03-15-2023 ambulatory Sandra Fitt Other [employer] Other Start: 03-15-2023 IBT FOR OBESITY GROU P 2-10 30M Sandra Hurley [facility] Start: 03-11-2023 End: 03-11-2023 ambulatory Karin Altamirano Facility:[facility] Start: 03-11-2023 End: 03-11-2023 ambulatory PAINT POURER-Regina Pressley Work Phone: [facility] Work Phone: Start: 03-11-2023 End: 03-11-2023 Patient encounter procedure PAINT POURER-Regina Pressley Work Phone: [facility] [place] Work Phone: Start: 03-10-2023 End: 03-10-2023 ambulatory Adelaide Zavala Facility:[facility] Start: 03-10-2023 End: 03-10-2023 ambulatory PAINT POURER-C Ai Presslye Work Phone: [facility] Work Phone: Start: 03-10-2023 End: 03-10-2023 Patient encounter procedure PAINT POURER-C Ai Pressley Work Phone: [facility] Work Phone: Start: 03-09-2023 [facility] Weight Management f/u Katarzynaher Lariosler [facility] Start: 03-09-2023 End: 03-09-2023 ambulatory Katarzyna Missler Other [employer] Other Start: 03-09-2023 Registered Recurring PAINT POURER-C Lonnie Pressley Work Phone: [facility] Work Phone: Start: 02-22-2023 End: 02-22-2023 ambulatory Eleanor Singleton Other [employer] Other Start: 02-22-2023 Office outpatient vi sit 25 minutes Eleanor Singleton [facility] [place] Start: 02-03-2023 End: 02-03-2023 ambulatory Katarzyna R Amol Facility:[facility] Start: 02-03-2023 End: 02-03-2023 ambulatory PHYSICIAN NO [facility] Work Phone: Start: 02-03-2023 End: 02-03-2023 Patient encounter procedure PHYSICIAN NO [facility] Main [place] Work Phone: Start: 02-02-2023 End: 02-02-2023 ambulatory Katarzyna Missler Other [employer] Other Start: 02-02-2023 Telephone encounter Katarzynaher Carmichael [facility] Start: 02-27-2023 Registered Recurring PHYSICIAN NO [facility] Work Phone: Start: 01-24-2023 End: 01-24-2023 ambulatory Katarzyna Carmichael Other [employer] Other Start: 01-24-2023 Telephone encounter Katarzyna Carmichael [facility] Start: 01-18-2023 End: 01-18-2023 ambulatory Eleanor Singleton Other [employer] Other Start: 01-18-2023 Office outpatient vi sit 25 minutes Eleanor Singleton [facility] Start: 12-31-2022 End: 12-31-2022 ambulatory Billyvalentina Mccoy Other [employer] Other Start: 12-31-2022 Telephone encounter Billy Darius [facility] Start: 12-30-2022 End: 12-30-2022 ambulatory Billy Darius Other [employer] Other Start: 12-30-2022 Encounter by [employer] r link Billy Darius [facility] Start: 12-29-2022 Orders Only Raya young MD Work Phone: [facility] Comment on above: Pain (Primary Dx) Start: 12-27-2022 End: 12-27-2022 ambulatory Blily Darius Other [employer] Other Start: 12-27-2022 Encounter by [employer] r link Billy Darius [facility] Start: 12-14-2022 End: 12-14-2022 ambulatory Eleanor Singleton Other [employer] Other Start: 12-14-2022 Office outpatient vi sit 25 minutes Eleanor Singleton [facility] [place] Start: 11-23-2022 End: 11-23-2022 ambulatory Eleanor Singleton Other [employer] Other Start: 11-23-2022 Encounter by compute r link Eleanor Singleton [facility] Start: 11-19-2022 End: 11-19-2022 ambulatory Billy Darius Other [employer] Other Start: 11-19-2022 Encounter by compute r link Billy Darius [facility] Start: 11-17-2022 End: 11-17-2022 ambulatory Billy Darius Other [employer] Other Start: 11-17-2022 Office outpatient vi sit 25 minutes Billy Darius [facility] Start: 11-12-2022 End: 11-12-2022 ambulatory Eleanor Singleton Other [employer] Other Start: 11-12-2022 Encounter by compute r link Eleanor Singleton [facility] Start: 11-08-2022 End: 11-08-2022 ambulatory Eleanor Singleton Other [employer] Other Start: 11-08-2022 Encounter by compute r link Eleanor Singleton [facility] Start: 10-19-2022 End: 10-19-2022 ambulatory Eleanor Singleton Other [employer] Other Start: 10-19-2022 Office outpatient vi sit 15 minutes Eleanor Singleton [facility] [place] Start: 10-07-2022 End: 10-07-2022 ambulatory Eleanor Singleton Other [employer] Other Start: 10-07-2022 Office outpatient vi sit 25 minutes Eleanor Singleton [facility] Start: 09-16-2022 End: 09-17-[address] JETHRO ORDONEZ Facility:[facility] Start: 09-15-2022 End: 09-15-[address] JETHRO ORDONEZ Facility:[facility] Start: 07-05-2022 End: 07-05-2022 Discharged Recurring DO Ricky Quarles Work Phone: [facility] [place] Start: 06-22-2022 End: 06-22-2022 ambulatory Jones Waddellle II Other [employer] Other Start: 06-22-2022 Encounter by armen Caceres II [facility] Start: 06-16-2022 (Procedure) Mireya Acevedo [facility]onard [facility] Start: 06-16-2022 End: 06-16-2022 ambulatory Curtis Yousif Other [employer] Other Start: 06-09-2022 End: 06-09-2022 ambulatory Jones Waddellle II Other [employer] Other Start: 06-09-2022 Office outpatient vi sit 25 minutes Jones Caceres II [facility] Start: 05-29-2022 End: 05-29-2022 Patient encounter procedure DO Rickymaritza Quarles Work Phone: [facility]-MRI Main [place] Start: 05-18-2022 End: 05-18-2022 ambulatory Ricky Quarles Other [employer] Other Start: 05-18-2022 Telephone encounter Ricky Albrecht [facility] Start: 05-18-2022 End: 05-18-2022 Patient encounter procedure DO Ricky Robina Work Phone: [facility] [place] [facility] Start: 05-17-2022 End: 05-17-2022 Emergency department patient visit DO Ricky Quarles Work Phone: [facility]-Emergency Room Start: 03-10-2022 End: 03-10-2022 ambulatory Ricky Quarles Other [employer] Other Start: 03-10-2022 Telephone encounter Ricky Albrecht [facility] Start: 03-01-2022 End: 03-01-2022 ambulatory Ricky Robina Other [employer] Other Start: 03-01-2022 Office outpatient vi sit 25 minutes Ricky Robina [facility] Start: 01-26-2022 End: 01-26-2022 ambulatory Ricky Robina Other [employer] Other Start: 01-26-2022 Office outpatient ne w 45 minutes Ricky Martinoahan [facility] Start: 01-19-2022 End: 01-19-2022 ambulatory Javier Pham Other [employer] Other Start: 01-19-2022 Office outpatient vi sit 5 minutes Javier Pham [facility] Urgent Care [facility] Start: 01-13-2022 End: 01-13-2022 ambulatory Maria Luisa Anand Other [employer] Other Start: 01-13-2022 Office outpatient vi sit 5 minutes Curtis Lind [facility] Urgent Care [facility] Start: 01-13-2022 Telephone encounter Maria Luisa Albre[facility] Procedures Date Procedure Procedure Detail Performing Clinician Start: 08-12-2023 Radex hip unilateral with pelvis 2-3 views Raya Oliva MD Work Phone: Start: 03-11-2023 Plain X-ray of left hip PAINT POURER-Regina Pressley Work Phone: Start: 03-11-2023 X-ray of right knee PAINT POURER- Regina Pressley Work Phone: Start: 03-10-2023 Screening mammograph y of bilateral breasts PAINT POURER-Regina Pressley Work Phone: Start: 05-29-2022 MRI of left hip DO Venkat Quarles Work Phone: Start: 05-18-2022 Plain X-ray of left hip DO Ricky Quarles Work Phone: Start: 05-17-2022 Plain X-ray of left hip DO Ricky Quarles Work Phone: Plan of Treatment Date Care Activity Detail Author Start: 07-29-2023 Influenza vaccination Influenza Vacc ine (#1) [facility] Start: 11-28-2022 DEPRESSION ASSESSMENT DEPRESSION ASS ESSMENT [facility] Start: 07-29-2022 Influenza vaccination INFLUENZA (#1) [facility] Start: 03-27-2021 Covid-19 Vaccine (3 - Pfizer series) Covid-19 Vaccine (3 - Pfizer series) [facility] Start: [address] [facility] Start: 2009 HPV TESTING HPV TESTING [facility] Start: 2000 PAP TESTING PAP TESTING [facility] Start: 1998 Urine microalbumin profile [facility] Start: 1997 HEPATITIS C SCREENING HEPATITIS C SC REENING [facility] Start: 1997 HIV SCREENING HIV SCREENING [facility] Start: 06-14-1980 COVID-19 VACCINE (#1) COVID-19 VACCI NE (#1) [facility] Start: 1979 HEPATITIS B (1 of 3 - 3-dose series) HEPATITIS B (1 of 3 - 3-dose series) [facility] Start: 1979 Hepatitis B Vaccine (1 of 3 - 3-dose series) Hepatitis B Vaccine (1 of 3 - 3-dose series) [facility] Patient Education Tono-Danlos Syndrome Hip Pain (DC) [facility] Work Phone: Patient referral [facility] Work Phone: End: 01-28-2024 XR HIP GENERAL 3V PELV/AP/LAT LEFT XR HIP GENERAL 3V PELV/AP/LAT LEFT Radiology Routine Pain 1 Occurrences starting 12/29/2022 until 01/28/2024 [facility] Work Phone: Comment on above: 1 Occurrences starti ng 12/29/2022 until 01/28/2024 [facility] Immunization Date Immunization Notes Care Provider Lucian oconnor 12-28-2021 influenza, seasonal, injectable Ricky Quarles Other [employer] Other 11-13-2021 COVID-19 Vaccine Pfizer - Documentation Purposes Only Ricky Quarles Other [employer] Other 07-29-2020 influenza virus vaccine, unspecified formulation Raya Oliva MD Work Phone: [facility] Payers Date Payer Category Payer Medicaid [id number] 2022 Medicaid [id number] 2022 Self-pay [id number] 2021 Unknown [id number] 2. [id number] 1979 Unknown [id number] 2.16.84 0.1.785187.3.579.2.593 1979 Unknown [id number] 2.16.84 0.1.559622.3.579.2.593 1979 Unknown [id number] 2.16.840 .1.838636.3.579.2.9 1979 Unknown [id number] 2.16.840 .1.564373.3.579.2.9 1979 Unknown [id number] 2.16.840 .1.767823.3.579.2.9 1979 Unknown [id number] 2.16.840 .1.451492.3.579.2.9 1959 Unknown [id number] 2.1 6.840.1.818884.19 Unknown [id number] 2.16.840.1. 239302.19 Unknown [id number] 2.16.8 40.1.251214.3.579.2.531 Unknown [id number] 2.16.8 40.1.111126.3.579.2.531 Unknown [id number] 2.16.8 40.1.822439.3.579.2.531 Unknown [id number] 2.16.8 40.1.543882.3.579.2.531 Unknown [id number] 2.16.8 40.1.077457.3.579.2.531 Unknown [id number] 2.16.8 40.1.982139.3.579.2.531 Unknown [id number] 2.16.8 40.1.522828.3.579.2.531 Unknown [id number] 2.16.8 40.1.433149.3.579.2.531 Unknown [id number] 2.16.8 40.1.797323.3.579.2.531 Unknown [id number] 2.16.8 40.1.784820.3.579.2.531 Unknown [id number] 2.16.8 40.1.493186.3.579.2.531 Social History Date Type Detail Facility Start: 08-12-2023 Sex Assigned At [employer] Other Start: 05-17-2022 End: 05-17-2022 Tobacco smoking status DEIS Never smoked tobacco (finding) [facility] Start: 1980 Sex Assigned At Female [facility] Tobacco smoking stat us DEIS Tobacco smoking consumption unknown [facility] Start: 1980 Sex Assigned At Not on file [facility] Start: 08-12-2023 History of Social function [facility] National Score (1-10 0), lower number is lower risk [address] [facility] Start: 08-10-2023 Gender identity Identifies as female gender (finding) [facility] Start: 08-10-2023 Sexual orientation Bisexual (finding) [facility] Clinical Notes 01-13-2022 to 12-30-2023 Note Date & Type Note Facility 12-30-2023 Evaluation note Encounter Date Diagnosis Assessment Notes Dec, Arthropathy of left hip (ICD-10 - M16.12) Proceed with surgical intervention in the future. Dec, Avascular necrosis of bone of left hip (ICD-10 - M87.052) 43 year old female here for follow up and medication refill for chronic pain. She voices continued complaints of left hip pain with radiation to the groin. She should proceed with her dental and PCP work up. Once cleared for hip replacement she should proceed. In the meantime she can continue Hydrocodone/Darnell tminophen. She should follow up in 4 weeks. Dec, Other chronic pain (ICD-10 - G89.29) Patient has continued need for [place]. OARRS report processed and reviewed and shows no violations. Patient was educated on the risks and benefits of half-way opioid use. [place] was refilled today, opioid risk assessment was done as well as pill count. Patient is compliant with opioid medication. The patient denies any opioid related side effects. [employer] [facility] Chief Complaint: New patient here to establish care. Ref from Dr. Diaz for pre-op evaluation prior to hip replacement surgery. Dr. Phan will be performing but surgery is not yet scheduled. She wore 24 hour Holter monitor back in March 2023. This was ordered for increased HR upon standing. She had labs a few weeks ago. Denies chest pain, SOB, and palpitations. HPI: Nataliia Nelson is a 43 y.o. female With a history of avascular necrosis of the left hip; this has been going for the past 2 years. She needs hip replacement surgery. She is in quite a significant amount ofDiscomfort when she stands. She has no history of cardiac disease. She denies chest pain or shortness of breath. Her physical tolerance cannot be assessed due to inability to walk without a cane or a walker. No orthopnea, no paroxysmal external dyspnea, no lower extremity edema. In March of last year, she had experienced orthostatic palpitations. It was thought that she may have POTS. She underwent an event monitor that showed no significant arrhythmias. She has not had a head upright tilt table test PMHx: No diabetes, no hypertension, no dyslipidemia FH: No premature coronary artery disease in any first-degree relatives SOCIAL Hx:She does not smoke Cardiology ROS: Review of Systems Musculoskeletal: Positive for arthritis and joint pain. Neurological: Positive for light-headedness (shortly after standing). All other systems reviewed and are negative. Past Medical History She has no past medical history on file. Surgical History She has a past surgical history that includes Appendectomy; Cholecystectomy; Lap Band Adjustment; and Patella fracture surgery. Social History She has no history on file for tobacco use, alcohol use, and drug use. Family History Family History Problem Relation Name Age of Onset Hypertension Mother Kidney cancer Father Kidney cancer Maternal Grandmother Heart failure Maternal Grandfather Aortic aneurysm Paternal Grandmother Allergies Penicillins and Metformin Medications No current outpatient medications on file. Last Recorded Vitals BP 119/85 (BP Location: Left arm, Patient Position: Sitting) Pulse 74 Ht 1.651 m (5' 5 ) Wt 113 kg (250 lb) SpO2 96% BMI 41.60 kg/m??? Physical Examination: GENERAL: alert and oriented x3, well developed, in no acute distress. HEAD: atraumatic, normocephalic. EYES: VERONICA, EOMI. NECK: trachea midline, no JVD present, no carotid bruits present. CARDIAC: S1, S2 present. RRR. No murmur, rubs, or gallops. RESPIRATORY: CTAB, no increased effort of breathing, no rales, rhonchi, or wheezing. ABDOMEN: soft, nontender, nondistended. EXTREMITIES: no lower extremity edema, peripheral pulses are 2+ bilaterally. No rash/skin discoloration present. NEURO: strength/sensation equal and symmetric in bilateral upper and lower extremities. PSYCH: appropriate mood, affect, and judgement. INVESTIGATIONS: 12 lead EKG Normal sinus, normal ECG Ordering Provider: Ai HERBERT Date of Service: 04/24/23 CA/CA holter monitor recording: palpitations, night sweats;Unexplained night sweats;Heart pa ORDERED BY: PIEDAD Scott INDICATIONS: A 42-year-old patient with palpitations. 1. The rhythm is sinus throughout. Average heart rate 80 beats per minute. Minimum heart rate 53 beats per minute, sinus bradycardia at 6:20 a.m. Maximum heart rate 140 beats per minute, sinus tachycardia at 7:04 p.m. 2. A single PVC is noted in the whole recording. 3. No atrial arrhythmias are seen. 4. No pauses exceeding 2 seconds were noted. 5. The patient's diary had entry for dizziness and dyspnea associated with sinus tachycardia. CONCLUSION: A 24-hour Holter monitor that demonstrated no significant cardiac arrhythmias. The patient was in sinus rhythm throughout. Average heart rate 80 beats per minute. A single PVC was noted. The patient had symptoms of palpitations and dizziness and shortness of breath when she was having episode of sinus tachycardia. Assessment: Postural Palpitations; questionable POTS Infrequent premature ventricular contractions: Holter monitor Avascular necrosis of the hip requiring hip surgery Inability to gauge physical tolerance BMI 41.6 Recent diagnosis of Tono-Danlos syndrome Plan: Given her risk factor profile, the need for upcoming surgery, and inability to gauge her physical tolerance, I have recommended proceeding with a Lexiscan stress test Will order complete echocardiogram given history of Tono-Danlos syndrome and association with valvular heart disease If stress test is nonischemic and there are no significant structural abnormalities on echocardiogram, she would be at low risk to proceed with hip surgery as needed; recommend strict heart rate and blood pressure control and avoidance of major fluid shifts (more content not included)...[facility]01-03-2024 Evaluation note* Encounter Date Diagnosis Assessment Notes Treatment Notes Treatment Clinical Notes Nov, Arthropathy of left hip (ICD-10 - M16.12) Proceed with surgical intervention in the future. Nov, Avascular necrosis of bone of left hip (ICD-10 - M87.052) 42 year old female here for follow up and medication refill for chronic pain. She voices continued complaints of left hip pain with radiation to the groin. She also notes heaviness to the left lower extremity. She feels this started within the last week. She states she is scheduled to see Dr Phan later this afternoon to discuss surgery. Different treatment options were discussed with the patient. She does not wish to proceed with injections at this time as she is to follow up with the Orthopedic surgeon, as discussed. I encouraged the patient to continue taking medications as prescribed and I will refill her Muscotah as she feels this provides an element of relief. Nov, Other chronic pain (ICD-10 - G89.29) Patient has continued need for Mus[place]. OARRS report processed and reviewed and shows no violations. Patient was educated on the risks and benefits of iv therapy nurse opioid use. Muscotah was refilled today, opioid risk assessment was done as well as pill count. Patient is compliant with opioid medication. The patient denies any opioid related side effects. Nov, Left thigh pain (ICD-10 - M79.652) Continue with conservative treatments. If symptoms persists or worsens, we will consider work up to further evaluate this pain. [employer] Other 12-05-2023 Evaluation note* Encounter Date Diagnosis Assessment Notes Treatment Notes Treatment Clinical Notes Oct, Arthropathy of left hip (ICD-10 - M16.12) Proceed with surgical intervention in the future. Oct, Avascular necrosis of bone of left hip (ICD-10 - M87.052) 42 y/o female here for follow up to discuss her chronic pain. She voices complaints of left hip pain. She rates her pain 6/10 today. She feels her pain is negatively impacting her activities of daily living. Pt notes that she does have some anterior L thigh pain x 2 weeks. She is taking Muscotah with relief and requests a refill of this today. She continues to see Dr Phan and states she has a weight-loss plan to reach her goal of a BMI of 40 or below. In the meantime, she is encouraged to continue taking medications as prescribed and I will refill her Muscotah as she feels this provides an element of relief. Oct, Other chronic pain (ICD-10 - G89.29) Patient has continued need for Muscotah. OARRS report processed and reviewed and shows no violations. Patient was educated on the risks and benefits of half-way opioid use. Muscotah was refilled today, opioid risk assessment was done as well as pill count. Patient is compliant with opioid medication. The patient denies any opioid related side effects. UDS was done today through [facility], will await confirmatory results. Oct, Left thigh pain (ICD-10 - M79.652) Continue with conservative treatments. If symptoms persists or worsens, we will consider work up to further evaluate this pain. [employer] Other 11-02-2023 Evaluation note* Encounter Date Diagnosis Assessment Notes Treatment Notes Treatment Clinical Notes Sep, Arthropathy of left hip (ICD-10 - M16.12) Proceed with surgical intervention in the future. Sep, Avascular necrosis of bone of left hip (ICD-10 - M87.052) 42 year old female here for follow up and medication refill for chronic pain. She voices continued complaints of left hip pain. She is taking Muscotah with relief and requests a refill of this today. She continues to see Dr Phan and states she has a weight-loss plan to reach her goal of a BMI of 40 or below. In the meantime, she is encouraged to continue taking medications as prescribed and I will refill her Muscotah as she feels this provides an element of relief. Sep, Other chronic pain (ICD-10 - G89.29) Patient has continued need for Muscotah. OARRS report processed and reviewed and shows no violations. Patient was educated on the risks and benefits of half-way opioid use. Muscotah was refilled today, opioid risk assessment was done as well as pill count. Patient is compliant with opioid medication. The patient denies any opioid related side effects. Last UDS tested positive for THC. Patient states she bought what she thought was a CBD pen. She has since then disposed of the pen and discontinued using this product. She was provided a warning, we will re-test at her next OV. [employer] Other 10-10-2023 Evaluation note* Encounter Date Diagnosis Assessment Notes Treatment Notes Treatment Clinical Notes Aug, Obstructive sleep apnea (ICD-10 - G47.33) She is using treatment and does benefit from it. We discussed ways of improving toleration, and that she may benefit from switching to nasal pillow with chinstrap. She can also try turning down the humidity which may help with the drill . A better fitting mask may reduce leakage and allow her to wear it throughout the night. Although she states (with a smile) she hates how much it helps her she is clear that positive airway pressure treatment has improved her energy levels and sleep quality. She will continue working at doing better with the device and we anticipate return in a couple months Aug, Bipolar affective disorder, current episode hypomanic (ICD-10 - F31.0) Her response to carbamazepine strongly suggest that she does indeed have bipolar disorder. She is working to find a psychiatrist locally and it sounds like she has an appointment set up. I will continue the carbamazepine for now, and she will call if problems. She will return in 2 months Aug, Encounter for medication monitoring (ICD-10 - Z51.81) I reviewed her blood test, showing normal hemoglobin and white counts. No sign of marrow suppression with carbamazepine Aug, BMI 40.0-44.9, adult (ICD-10 - Z68.41) Weight reduction would be broadly beneficial for overall health, but would also have direct benefits on apnea severity and sleep quality. Even moderate weight reduction can affect MEHUL and snoring, and in some patients weight reduction can completely resolve sleep apnea [employer] Other 10-05-2023 Evaluation note* Encounter Date Diagnosis Assessment Notes Treatment Notes Treatment Clinical Notes Aug, Arthropathy of left hip (ICD-10 - M16.12) Proceed with surgical intervention in the future. Aug, Avascular necrosis of bone of left hip (ICD-10 - M87.052) 42 year old female here for follow up and medication refill for chronic pain. She voices complaints of left hip pain. She denies any lower back pain today. She rates her pain 7/10 today. She states she was seen by a [facility] orthopedic surgeon however she still needs to use weight prior to proceeding with surgery. She continues taking Muscotah with relief and is requesting a refill of this today. She notes she would like to continue to see Dr Phan and states she has a weight-loss plan to reach her goal of a BMI of 40 or below. In the meantime, she is encouraged to continue taking medications as prescribed and I will refill her Muscotah as she feels this provides an element of relief. Aug, Other chronic pain (ICD-10 - G89.29) Patient has continued need for Muscotah. OARRS report processed and reviewed and shows no violations. Patient was educated on the risks and benefits of half-way opioid use. Muscotah was refilled today, opioid risk assessment was done as well as pill count. Patient is compliant with opioid medication. The patient denies any opioid related side effects. UDS performed through [facility] today, will await confirmatory results. [employer] Other 09-15-2023 NoteHNO ID: [id number] Author: Raya Oliva MD Service: ? Author Type: Physician Type: Progress Notes Filed: 08/12/2023 5:03 PM Note Text: CONSULT ORTHOPAEDIC: HIP PRIMARY CARE PHYSICIAN: No primary care provider on file. REFERRING PROVIDER: SELF ASSESSMENT AND PLAN Impression: Left Hip Severe Degenerative Osteoarthritis, Primary Here today for second opinion Fall 2 years ago resulting in right hip pain Treated by local orthopaedic with cortisone injections and physical therapy which made symptoms worse Complains of left lateral hip pain that radiates to groin Currently under the care of pain management and take Mus[place]ah 5/325 1/2 tab bid Was told needs total hip arthroplasty but needs to decrease BMI to under 40 Diagnoses: No diagnosis found. Based upon the evaluation today and after discussions with Nataliia Del Real Leslie, Nataliia Nelson has significant, worsening pain at the hip. This pain is increased with activity and weight bearing, and interferes with activities of daily living. These symptoms have continued despite a number of non-surgical measures, including a trial of oral pain medication (for at least 12 weeks). At this point, the patient will not benefit from further PT due to the severity of their condition. The patient's physical examination is consistent with limitations in range of motion, pain with passive range of motion, and an antalgic gait. These examination findings are corroborated by imaging findings of joint space narrowing, periarticular osteophyte formation, and subchondral sclerosis. The patient has been treated by the practice and all reasonable treatments have failed to control the disease, which causes significant pain and limits activities of daily living. The patient has failed conservative treatment and joint replacement surgery was discussed and agreed upon by both provider and patient. The patient has elected to proceed with surgical management to improve function and relieve pain refractory to non-surgical measures: Left Primary Total Hip Arthroplasty as evidenced by six months of unsuccessful non-operative treatment as outlined in the HPI below. The risks and benefits of surgery were discussed at length including but not limited to the risks of infection, bleeding, nerve or blood vessel injury, deep venous thrombosis, pulmonary embolism, , paralysis, hip dislocation, leg length discrepancy (including requiring use of permanent shoe lift), bone fracture, component loosening or failure requiring re-operation or amputation. Informed consent was obtained and the patient was scheduled. We also discussed fixation strategies including cement and cementless fixation and modern alternative bearings including metal or ceramic with cross-linked polyethylene, [id number] and [id number] as well as advantages and disadvantages of each. We also discussed less invasive surgical approaches and reported benefits and risks of these approaches. Surgery date will be based on patient weight loss Need to loss 15-20 pounds prior to surgery and obtain a BMI below 40 The patient has been ordered: Office Visit on 08/12/23 carBAMazepine (TEGRETOL) 200 mg tablet celecoxib (CELEBREX) 200 mg capsule cetirizine (ZYRTEC) 5 mg tablet cyanocobalamin (VITAMIN B-12) 1,000 mcg tab DULoxetine (CYMBALTA) 60 mg capsule ergocalciferol 50,000 unit capsule (VITAMIN D2, DRISDOL) HYDROcodone-acetaminophen (NORCO) 5-325 mg per tablet pantoprazole (PROTONIX) 40 mg grps folic acid 0.8 mg cap Magnesium 200 mg tab No orders placed today. CONSULTS: Patient does not require consults for optimization at this time. Total Joint Athroplasty - Risk Calculator Risk Factors for Total Hip Arthroplasty (PILY) Major Risk Factors Obesity High Risk High: BMI > 40 Moderate: BMI 30-40 Normal: BMI < 30 Diabetes normal High: A1C > 8 Moderate: A1C 7-8 Normal: A1C < 7 Smoking normal High: Current smoker Normal: Non smoker Narcotics Use High Risk High:NarxCare >=300 Moderate: 100-299 Normal: 0-99 Depression Unknown Risk High: PHQ-9 >14 Moderate: PHQ-9 5-14 Normal: PHQ-9 < 5 Area Deprivation Index (TIKI) High Risk High: TIKI Score > 75 Moderate: TIKI 50-75 Normal: TIKI < 50 Obesity: Weight management and obesity medicine (bariatric) program recommended BMI Readings from Last 3 Encounters: 08/12/23 : 43.79 kg/m? Area Deprivation Index (TIKI) TIKI Score 08/12/2023 National Score 80 Patient Health Questionnaire (PHQ-9) No flowsheet data found.(0-4) minimal depression, (5-9) mild depression, (10-14) moderate depression, (15-19) moderately severe depression, (20-27) severe depression Bone Density Risk Screen Nataliia Nelson is low risk for bone loss based on her age and having no previous diagnoses of osteopenia, osteoporosis, Paget's disease of bone, or cancer of bone. Other risk factors are listed below to determine if they pose a significan (more content not included)...[facility]09-15-2023 NoteHNO ID: [id number] Author: Lynn Yost RT(R) Service: Radiology Author Type: Technologist Type: Progress Notes Filed: 08/12/2023 12:21 PM Note Text: Radiology Service Progress Note PATIENT NAME: Nataliia Nelson DATE OF SERVICE: August 12, 2023 TIME: 12:21 PM PATIENT IDENTITY VERIFICATION COMPLETED USING TWO (2) IDENTIFIERS: Name and Date of confirmed by patient verbally. FALL SCREENING: Has the patient had 2 falls in the last year or 1 fall with injury or currently using an Ambulatory Assistive Device (Walker, Cane, Wheelchair, Crutches, etc.)? No PATIENT GENDER DATA: Female. status: : No status: NO. PATIENT RELEVANT IMPLANT DATA REVIEWED: Not Applicable RADIOLOGY DEPARTMENT: General X-ray: Exam(s) Completed: Pelvis X-Ray: Pelvis with Hip Left PERIPHERAL IV DATA: Not applicable SIGNED BY: RT Dion(R) August 12, 2023 12:21 [facility]09-15-2023 History of Present illness Narrative* Raya Oliva MD - 08/12/2023 12:52 PM EDT CONSULT ORTHOPAEDIC: HIP PRIMARY CARE PHYSICIAN: No primary care provider on file. REFERRING PROVIDER: SELF ASSESSMENT & PLAN Impression: Left Hip Severe Degenerative Osteoarthritis, Primary Here today for second opinion Fall 2 years ago resulting in right hip pain Treated by local orthopaedic with cortisone injections and physical therapy which made symptoms worse Complains of left lateral hip pain that radiates to groin Currently under the care of pain management and take [place]ah 5/325 1/2 tab bid Was told needs total hip arthroplasty but needs to decrease BMI to under 40 Diagnoses: No diagnosis found. Based upon the evaluation today and after discussions with Nataliia Gt Leslie, Nataliia Nelson has significant, worsening pain at the hip. This pain is increased with activity and weight bearing, and interferes with activities of daily living. These symptoms have continued despite a number of non-surgical measures, including a trial of oral pain medication (for at least 12 weeks). At this point, the patient will not benefit from further PT due to the severity of their condition. The patient's physical examination is consistent with limitations in range of motion, pain with passive range of motion,and an antalgic gait. These examination findings are corroborated by imaging findings of joint space narrowing, periarticular osteophyte formation, and subchondral sclerosis. The patient has been treated by the practice and all reasonable treatments have failed to control the disease, which causes significant pain and limits activities of daily living. The patient has failed conservative treatment and joint replacement surgery was discussed and agreed upon by both provider and patient. The patient has elected to proceed with surgical management to improve function and relieve pain refractory to non-surgical measures: Left Primary Total Hip Arthroplasty as evidenced by six months of unsuccessful non-operative treatment as outlined in the HPI below. The risks and benefits of surgery were discussed at length including but not limited to the risks of infection, bleeding, nerve or blood vessel injury, deep venous thrombosis, pulmonary embolism, , paralysis, hip dislocation, leg length discrepancy (including requiring use of permanent shoe lift), bone fracture, component loosening or failure requiring re-operation or amputation. Informed consent was obtained and the patient was scheduled. We also discussed fixation strategies including cement and cementless fixation and modern alternative bearings including metal or ceramic with cross-linked polyethylene, [id number] and [id number] as well as advantages and disadvantages of each. We also discussed less invasive surgical approaches and reported benefits and risks of these approaches. Surgery date will be based on patient weight loss Need to loss 15-20 pounds prior to surgery and obtain a BMI below 40 The patient has been ordered: Office Visit on 08/12/23 carBAMazepine (TEGRETOL) 200 mg tablet celecoxib (CELEBREX) 200 mg capsule cetirizine (ZYRTEC) 5 mg tablet cyanocobalamin (VITAMIN B-12) 1,000 mcg tab DULoxetine (CYMBALTA) 60 mg capsule ergocalciferol 50,000 unit capsule (VITAMIN D2, DRISDOL) HYDROcodone-acetaminophen (NORCO) 5-325 mg per tablet pantoprazole (PROTONIX) 40 mg grps folic acid 0.8 mg cap Magnesium 200 mg tab No orders placed today. CONSULTS: Patient does not require consults for optimization at this time. Total Joint Athroplasty - Risk Calculator Risk Factors for Total Hip Arthroplasty (PILY) Major Risk Factors Obesity High Risk High: BMI > 40 Moderate: BMI 30-40 Normal: BMI < 30 Diabetes normal High: A1C > 8 Moderate: A1C 7-8 Normal: A1C < 7 Smoking normal High: Current smoker Normal: Non smoker Narcotics Use High Risk High:NarxCare >=300 Moderate: 100-299 Normal: 0-99 Depression Unknown Risk High: PHQ-9 >14 Moderate: PHQ-9 5-14 Normal: PHQ-9 < 5 Area Deprivation Index (TIKI) High Risk High: TIKI Score > 75 Moderate: TIKI 50-75 Normal: TIKI < 50 Obesity: Weight management and obesity medicine (bariatric) program recommended BMI Readings from Last 3 Encounters: 08/12/23 : 43.79 kg/m Area Deprivation Index (TIKI) TIKI Score 08/12/2023 National Score 80 Patient Health Questionnaire (PHQ-9) No flowsheet data found.(0-4) minimal depression, (5-9) mild depression, (10-14) moderate depression, (15-19) moderately severe depression, (20-27) severe depression Bone Density Risk Screen Nataliia Nelson is low risk for bone loss based on her age and having no previous diagnoses of osteopenia, osteoporosis, Paget's disease of bone, or cancer of bone. Other risk factors are listed below to determine if they pose a significant risk for bone loss, andif so, recommend ordering a bone densitometry and, upon receiving a result, as needed, order a consult to a bone health specialist (Rheumatology, Endocrinology, or Women's Health) for bone assessment. Risk Factors: Use of Proton Pump Inhibitors History of falls Use of Anti-Convulsants Additional Risk Factors NarxCare score NARX Narcotics: 341 (08/12/2023 11:19 AM) Recommend a consult to Chronic Pain Management. Malnutrition: No Malnutrition Screening Tool (MST) score on file- please complete the MST screeningtool (click here to open) and refresh the note. There is no problem list on file for this patient. SUBJECTIVE CHIEF COMPLAINT: Hip Pain HPI: Nataliia Nelson is a 42 year old patient with the presenting complaint of New of the Left Hip. Nataliia Nelson has had progressive problems with the hip(s) constantly over the past 2 year(s) interfering with activities which include walking 2 blocks, exercise, rising from a sitting position, standingfor prolonged periods of time, getting in and out of a car, dressing, climbing stairs, and safety-increased risk for fall. The problem began limiting activities 1-3 years ago. Nataliia reports a current pain level of 7 (Hip-Left). She describes the pain as Aching, Crushing, Pressure, Radiating, Sharp, Shooting, Spasm, Stabbing, Throbbing. The pain is Continuous, and has lasted for 23 Months. Interventions tried include Medication, Reposition. FUNCTIONAL STATUS: Walk indoors, such as around the house (1.75 METs) Do light work around the house, such as dusting or washing dishes (2.70 METs) Take care of self, that is eating, dressing, bathing, using the toilet (2.75 METs) Walk a block or two on level ground (2.75 METs) PREVIOUS TREATMENTS: Attempted Weight Loss Medical: Steroid Injections Left Hip, narcotic pain medication Physical Therapy: Use of Ambulatory Aid, Activities Modified, and PT Three Months or Greater 1-2 times per week REVIEW OF SYSTEMS: GENERAL: Denies fever, chills malaise and weight loss.. PAIN ASSESSMENT: See HPI. HEENT: No recent change in vision or hearing.. CARDIOVASCULAR: Denies chest pain, history of A-fib, valvular disease, hypertension, CHF or pacemaker/ICD. and tachycardia . RESPIRATORY: Denies SOB, sputum production, dyspnea, COPD and hemoptysis.. GI: Denies GI ulcers, inflammatory disease, ascites or liver disease.. : Denies change in frequency or urgency, kidney disease, and burning with urination.. MUSCULOSKELETAL: See HPI. SKIN: Denies rash or itching.. PSYCHOLOGICAL: Denies uncontrolled depression or anxiety.. NEURO: Denies CVA, seizures, headaches.. ENDOCRINE: Denies diabetes, thyroid disease.. HEMATOLOGY/LYMPHOLOGY: Denies cancer, bleeding or clotting disorders, anemia,and DVT's.. ALLERGIC/IMMUNOLOGICAL: Denies risks for infection, or recent MRSA infections. No flowsheet data found. No past medical history on file. No past surgical history on file. No family history on file. ALLERGIES: Metformin and Penicillins MEDICATIONS: carBAMazepine (TEGRETOL) 200 mg tablet celecoxib (CELEBREX) 200 mg capsule cetirizine (ZYRTEC) 5 mg tablet Take 5 mg by mouth once daily. cyanocobalamin (VITAMIN B-12) 1,000 mcg tab Take 2,000 mcg by mouth. DULoxetine (CYMBALTA) 60 mg capsule Take 1 tablet by mouth once daily. ergocalciferol 50,000 unit capsule (VITAMIN D2, DRISDOL) Take 1,000 Units by mouth once daily. HYDROcodone-acetaminophen (NORCO) 5-325 mg per tablet pantoprazole (PROTONIX) 40 mg grps folic acid 0.8 mg cap Take by mouth. Magnesium 200 mg tab Take by mouth. OBJECTIVE PHYSICAL EXAM Ht 162.6 cm (5' 4 ) Wt 115.7 kg (255 lb 1.9 oz) BMI 43.79 kg/m All other systems deferred. GENERAL: Obese HABITUS: Obese GAIT: Ambulatory Aid: a cane HIP EXAM: Left: ROM: Extension: slight flexion contracture Flexion: 80 degrees Internal Rotation: 5 degrees External Rotation: 10 degrees Abduction: 25 degrees Adduction: 20 degrees Strength: Abduction 4/5 Palpation: No tenderness Log roll: painful. Straight leg raise: Negative Neurovascular Status: Sensation Intact, Moves foot and ankle up & down, and 2+ dorsalis pedis DATA: No hip imaging is available at this time. Diagnostic tests reviewed for today's visit: Left hip X-Ray: Severe degenerative changes and Evidence of Avascular Necrosis with Collapse the patient may also have a degree of acetabular dysplasia which is contributing to her the osteoarthritis/degenerative joint disease in the left hip. The following conditions were addressed during the office visit today: Obesity - Weight management strategies were discussed including diet and exercise. A Consult to Weight Management will be completed to follow up on the plan of care. SIGNATURE: Raya Oliva MD PATIENT NAME: Nataliia Nelson DATE: August 12, 2023 TIME: 12:53 PM I agree with the Chief Complaint, ROS, and Past Histories independently gathered by the clinical aviation support equipment repairer and the remaining scribed note accurately describes my personal service to the patient. The patient is seen and examined by Dr. Oliva and the following reflects his/her service. Scribed by Vielka Wahl RN documented [facility] History of Present illness Narrative* Lynn Yost RT(R) - 08/12/2023 11:30 AM EDT Radiology Service Progress Note PATIENT NAME: Nataliia Nelson DATE OF SERVICE: August 12, 2023 TIME: 12:21 PM PATIENT IDENTITY VERIFICATION COMPLETED USING TWO (2) IDENTIFIERS: Name and Date of confirmedby patient verbally. FALL SCREENING: Has the patient had 2 falls in the last year or 1 fall with injury or currently using an Ambulatory Assistive Device (Walker, Cane, Wheelchair, Crutches, etc.)? No PATIENT GENDER DATA: Female. status: : No status: NO. PATIENT RELEVANT IMPLANT DATA REVIEWED: Not Applicable RADIOLOGY DEPARTMENT: General X-ray: Exam(s) Completed: Pelvis X-Ray: Pelvis with Hip Left PERIPHERAL IV DATA: Not applicable SIGNED BY: RT Dion(Migue) August 12, 2023 12:21 PM [facility]* Encounter Date Diagnosis Assessment Notes Treatment Notes Treatment Clinical Notes Jul, Arthropathy of left hip (ICD-10 - M16.12) Proceed with surgical intervention Jul, Avascular necrosis of bone of left hip (ICD-10 - M87.052) 42 y/o female here for follow up to discuss her chronic pain. She voices complaints of left hip pain. She denies any lower back pain today. She is scheduled to see the [facility] orthopedic surgery next week. Different treatment options were discussed in detail with the patient, and I recommend she follow up with the [facility] as scheduled. In the meantime, I will refill her Muscotah as this provides an element of relief. Jul, Other chronic pain (ICD-10 - G89.29) Patient has continued need for Muscotah. OARRS report processed and reviewed and shows no violations. Patient was educated on the risks and benefits of half-way opioid use. Muscotah was refilled today, opioid risk assessment was done as well as pill count. Patient is compliant with opioid medication. The patient denies any opioid related side effects. [employer] Other 08-23-2023 Evaluation note* Encounter Date Diagnosis Assessment Notes Treatment Notes Treatment Clinical Notes Jun, Obstructive sleep apnea (ICD-10 - G47.33) I reviewed her sleep test from June 21, which did show clear-cut sleep apnea. Her respiratory event index of 9.0 demonstrates that the disorder is clearly present; as home sleep testing underestimates apnea severity it is possible that the more severe apnea is present and could be documented there. She expresses good understanding. I am hopeful that her experience will be much more positive this time around since apnea severity, body weight, and likely pressures required for control will all be better after the 100 pound weight loss, I will order auto CPAP, and anticipate return for 31 to 90-day visit Jun, Bipolar affective disorder, current episode hypomanic (ICD-10 - F31.0) She has past diagnoses of bipolar disorder, and has recurrent episodes of hypomania. Her depression has not completely resolved with duloxetine. She is on a long waiting list to see psychiatry, but has symptoms of type II bipolar that deserves treatment. Blood count in January was okay, giving us a baseline. Extensively reviewed the diagnosis, side effects, and interaction potentials. We will start mood stabilizer and carbamazepine 200 mg twice daily. Recheck here 1 month, call sooner if problems Jun, Encounter for medication monitoring (ICD-10 - Z51.81) Recheck CBC prior to next visit Jun, BMI 40.0-44.9, adult (ICD-10 - Z68.41) Weight reduction would be broadly beneficial for overall health, but would also have direct benefits on apnea severity and sleep quality. Even moderate weight reduction can affect MEHUL and snoring, and in some patients weight reduction can completely resolve sleep apnea Jun, Chronic pain syndrome (ICD-10 - G89.4) Her pain does interfere with sleep continuity and quality, but other processes are also present [employer] Other 08-03-2023 Evaluation note* Encounter Date Diagnosis Assessment Notes Treatment Notes Treatment Clinical Notes Jun, Arthropathy of left hip (ICD-10 - M16.12) 42 year old female here for follow up and medication refill for chronic pain. She voices complaints of left sided low back pain, denying radicular symptoms. She also voices continued complaints of left hip pain. She continues taking Muscotah and is requesting a refill of this today. She notes she plans to proceed with the [facility] to discuss sugical options. She feels pain is negatively impacting her daily activities. She does not wish to proceed with injections at this time as she would like to proceed with surgical options. I encouraged the patient to continue taking medications as prescribed and I will refill her Muscotah as she feels this provides an element of relief. Jun, Avascular necrosis of bone of left hip (ICD-10 - M87.052) Continue with current treatment plan. Jun, Other chronic pain (ICD-10 - G89.29) Patient has continued need for Muscotah. OARRS report processed and reviewed and shows no violations. Patient was educated on the risks and benefits of half-way opioid use. Muscotah was refilled today, opioid risk assessment was done as well as pill count. Patient is compliant with opioid medication. The patient denies any opioid related side effects. [employer] Other 07-14-2023 Evaluation note* Encounter Date Diagnosis Assessment Notes Treatment Notes Treatment Clinical Notes May, Obesity, unspecified classification, unspecified obesity type, unspecified whether serious comorbidity present (ICD-10 - E66.9) May, BMI 40.0-44.9, adult (ICD-10 - Z68.41) May, Other Summary of Visi t: (A) Discussed nutrition for constipation (B) Discussed high fiber foods and fluid (C) Discussed ideas for trying new fruits and vegetables Patient set the following goals: Start fruit and vegetable sticker chart [employer] Other 07-06-2023 Evaluation note* Encounter Date Diagnosis Assessment Notes Treatment Notes Treatment Clinical Notes May, Arthropathy of left hip (ICD-10 - M16.12) 42 year old female here for follow up and medication refill for chronic pain. She voices complaints of left hip pain. She continues with weight loss in order to proceed with surgery. She continues taking Muscotah with relief and is requesting a refill of this today. Different treatment options were discussed with the patient. She does not wish to proceed with injections at this time as she feels pain is at a tolerable level with medication management. I encouraged the patient to continue taking medications as prescribed and I will refill her Muscotah as she feels this provides an element of relief. May, Avascular necrosis of bone of left hip (ICD-10 - M87.052) Continue with current treatment plan. May, Other chronic pain (ICD-10 - G89.29) Patient has continued need for Muscotah. OARRS report processed and reviewed and shows no violations. Patient was educated on the risks and benefits of half-way opioid use. Muscotah was refilled today, opioid risk assessment was done as well as pill count. Patient is compliant with opioid medication. The patient denies any opioid related side effects. UDS performed through [facility] today, will await confirmatory results. [employer] Other 06-12-2023 Evaluation note* Encounter Date Diagnosis Assessment Notes Treatment Notes Treatment Clinical Notes Apr, Obesity (ICD-10 - E66.9) We are inching closer to her BMI goal of less than 40 for hip surgery with a BMI of 42. She is making slow and steady progress being on Victoza at the 1.8 mg dose without adverse side effects. She does seem to be getting positive benefit of feeling jacques faster. Encouraged her to continue to work with the dietitian to optimize her dietary choices and meal prep and planning. Advised not to be too restrictive on diet such as plain Posta and boiled chicken as this will not be enjoyable or sustainable for her. Continue Victoza Apr, Gastroesophageal reflux disease, unspecified whether esophagitis present (ICD-10 - K21.9) Patient denies any signs or symptoms of GERD but this could also be playing a role in her taste changes in addition to the magnesium she previously was trialing. Apr, Other chronic pain (ICD-10 - G89.29) Apr, Anxiety (ICD-10 - F41.9) Apr, Depression (ICD-10 - F32.9) Consideration to bipolar 2 disorder. She is awaiting appointment for mental health to get established and address Apr, Arthritis of knee (ICD-10 - M19.90) Apr, Avascular necrosis o f bone of left hip (ICD-10 - M87.052) Apr, PCOS (polycystic ovarian syndrome) (ICD-10 - E28.2) Apr, Daytime sleepiness (ICD-10 - R40.0) She has met with Dr. Laura for a consultation and has a sleep study scheduled at the end of May which we will follow. She is currently working on sleep restrictive training and working towards a goal of getting him better hours and better quality of sleep. Apr, Impaired fasting glucose (ICD-10 - R73.01) Apr, Encounter for weight management (ICD-10 - Z76.89) [employer] Other 06-09-2023 Evaluation note* Encounter Date Diagnosis Assessment Notes Treatment Notes Treatment Clinical Notes Apr, Obesity, unspecified classification, unspecified obesity type, unspecified whether serious comorbidity present (ICD-10 - E66.9) Apr, BMI 40.0-44.9, adult (ICD-10 - Z68.41) Apr, Other Summary of Visi t: (A) Discussed possible reasons for quick and extreme taste changes (B) Return to a supportive eating pattern (C) Discussed heart-healthy fats Patient set the following goals: Discontinue magnesium supplement to identify if it was causing taste changes [employer] Other 06-05-2023 Evaluation note* Encounter Date Diagnosis Assessment Notes Treatment Notes Treatment Clinical Notes Apr, Arthropathy of left hip (ICD-10 - M16.12) [employer] Other 05-08-2023 Evaluation note* Encounter Date Diagnosis Assessment Notes Treatment Notes Treatment Clinical Notes March, Arthropathy of left hip (ICD-10 - M16.12) [employer] Other 04-25-2023 Evaluation note* Encounter Date Diagnosis Assessment Notes Treatment Notes Treatment Clinical Notes Feb, Arthropathy of left hip (ICD-10 - M16.12) 42 year old female here for follow up and medication refill for chronic pain. She continues to complain of left hip pain. She rates her pain 3/10 today. She reports that the Muscotah is providing an element of relief and is requesting a refill of this today. She feels pain can negatively impact her daily activities and sleeping pattern. I discussed different treatment options in detail with the patient. She is still working on weight loss in order to go forward with surgery, so does not wish to proceed with injections at this time. I will refill his Muscotah today as she feels this provides an element of relief. Feb, Left leg pain (ICD-10 - M79.605) Continue with medication mgmt Feb, Other chronic pain (ICD-10 - G89.29) Patient has continued need for Muscotah. OARRS report processed and reviewed and shows no violations. Patient was educated on the risks and benefits of iv therapy nurse opioid use. Muscotah was refilled today, opioid risk assessment was done as well as pill count. Patient is compliant with opioid medication. The patient denies any opioid related side effects. Feb, Avascular necrosis of bone of left hip (ICD-10 - M87.052) Patient recommended to continue follow up with Ortho for surgical intervention. Continue with [facility] for further mgmt. [employer] Other 04-20-2023 Evaluation note* Encounter Date Diagnosis Assessment Notes Treatment Notes Treatment Clinical Notes Feb, Obesity, unspecified classification, unspecified obesity type, unspecified whether serious comorbidity present (ICD-10 - E66.9) Feb, BMI 40.0-44.9, adult (ICD-10 - Z68.41) Feb, Other Summary of Visi t: (A) Discussed various way to prepare veggies (B) Answered various nutrition-related questions (C) Reviewed the plate method Patient set the following goals: Increase variety of vegetables [employer] Other 04-18-2023 Evaluation note* Encounter Date Diagnosis Assessment Notes Treatment Notes Treatment Clinical Notes Feb, Obesity, unspecified classification, unspecified obesity type, unspecified whether serious comorbidity present (ICD-10 - E66.9) Feb, BMI 40.0-44.9, adult (ICD-10 - Z68.41) Feb, Other Summary of Visi t: (A) Presentation of Plate Method discussed (B) Sample meal ideas reviewed (C) exercise recommendations reviewed Patient set the following goals: - patient set personal goal using given handout. [employer] Other 04-12-2023 Evaluation note* Encounter Date Diagnosis Assessment Notes Treatment Notes Treatment Clinical Notes Feb, Obesity (ICD-10 - E66.9) After patient provider discussion patient is open to taking medication for weight loss. We discussed the risks and benefits of Victoza and how it works with decreasing her appetite with goals of weight loss. This helps her to be more mindful of what and how much she is eating towards weight loss goals. Again she needs to focus on the quality of food and incorporating more fruits and vegetables into her diet. Work with dietitian for goal of protein intake. Other medications for weight loss are contraindicated including naltrexone and Wellbutrin due to her underlying mental health diagnoses and opioid use for chronic pain. She has failed metformin due to severe GI side effects. She needs to decrease or eliminate her Snapple apple sugary beverage most days of the week. She should also eliminate energy drink from her routine which could affect her sleep and overall health. We both recognize that 180 mg of caffeine daily is much improved from her previous 2000 mg of caffeine a day prior to her moving here from [place] in May 2021. Feb, Gastroesophageal reflux disease, unspecified whether esophagitis present (ICD-10 - K21.9) We did discuss a focus on avoiding triggers for GERD especially with starting any type of GLP-1 medication. She is to inform provider of any adverse effects or intolerances prior to follow-up visit. Feb, Other chronic pain (ICD-10 - G89.29) Feb, Anxiety (ICD-10 - F41.9) Feb, Depression (ICD-10 - F32.9) Feb, Arthritis of knee (ICD-10 - M19.90) Her goal is BMI of less than 40 so that she is able to get surgery on her hip to help improve her pain. While she was intimidated to increase her walking she has been encouraged that she is able to get 5000 steps a day and it did not put her over the edge of pain. Feb, Avascular necrosis o f bone of left hip (ICD-10 - M87.052) Feb, PCOS (polycystic ovarian syndrome) (ICD-10 - E28.2) Feb, Daytime sleepiness (ICD-10 - R40.0) Feb, Impaired fasting glucose (ICD-10 - R73.01) Feb, Encounter for weight management (ICD-10 - Z76.89) [employer] Other 03-28-2023 Evaluation note* Encounter Date Diagnosis Assessment Notes Treatment Notes Treatment Clinical Notes Jan, Arthropathy of left hip (ICD-10 - M16.12) 42 year old female here for follow up and medication refill for chronic pain. She continues to complain of left hip pain. She feels like the pain is progressively worsening. She admits that she falls often d/t imbalance. Last fall was a week ago, states that pain worsened after that, but it has improved since. She plans to get a second surgical opinion at the [facility]. She states she was seen by weight management and is being referred to a sleep specialist, exercise and nutrition services manager. She rates her pain 4/10 today. She contines taking Muscotah and is requesting a refill of this today. I encouraged her to proceed with the [facility] evaluation. Meanwhile, I will refill her Muscotah today as she feels this provides an element of relief. Jan, Left leg pain (ICD-10 - M79.605) Reviewed EMG results with patient today. No abnormalities. Jan, Other chronic pain (ICD-10 - G89.29) Patient has continued need for Muscotah. OARRS report processed and reviewed and shows no violations. Patient was educated on the risks and benefits of iv therapy nurse opioid use. Muscotah was refilled today, opioid risk assessment was done as well as pill count. Patient is compliant with opioid medication. The patient denies any opioid related side effects. Jan, Avascular necrosis of bone of left hip (ICD-10 - M87.052) Patient recommended to continue follow up with Ortho for surgical intervention. Continue with [facility] for further mgmt. [employer] Other 02-21-2023 Evaluation note* Encounter Date Diagnosis Assessment Notes Treatment Notes Treatment Clinical Notes Dec, Arthropathy of left hip (ICD-10 - M16.12) 42 year old female here for follow up and medication refill for chronic pain. She voices continued complaints of left hip pain with radiation to the groin as well as down the anterior aspect of the left lower extremity to the ankle. She notes radicular symptoms started around 2 weeks ago, and primarily happens while shes lying down. She contines taking Muscotah and is requesting a refill of this today. Different treatment options were discussed in detail with the patient. Patient states she continues to try to lose weight to proceed with left hip replacement as previously discussed and is scheduled for an appointment for weight management on Tuesday. She is encouraged to proceed with this as scheduled. I encouraged the patient to continue taking medications as prescribed and I will refill her Muscotah todat as she feels this provides an element of relief. Dec, Left leg pain (ICD-10 - M79.605) Regarding her complaints of low back pain with intermittent radidation down the anterior aspect of the left lower extremity to the ankle, I will order an EMG of the left lower extremity for futher evaluation. Dec, Other chronic pain (ICD-10 - G89.29) Patient has continued need for Muscotah. OARRS report processed and reviewed and shows no violations. Patient was educated on the risks and benefits of half-way opioid use. Muscotah was refilled today, opioid risk assessment was done as well as pill count. Patient is compliant with opioid medication. The patient denies any opioid related side effects. Dec, Avascular necrosis of bone of left hip (ICD-10 - M87.052) Patient recommended to continue follow up with Ortho for surgical intervention. Diet modifications and increased activity as tolerated is encouraged for weight loss. [employer] Other 02-03-2023 Evaluation note* Encounter Date Diagnosis Assessment Notes Treatment Notes Treatment Clinical Notes Dec, Arthropathy of left hip (ICD-10 - M16.12) [employer] Other 02-02-2023 Evaluation note* Encounter Date Diagnosis Assessment Notes Treatment Notes Treatment Clinical Notes Dec, Arthropathy of left hip (ICD-10 - M16.12) [employer] Other 01-30-2023 Evaluation note* Encounter Date Diagnosis Assessment Notes Treatment Notes Treatment Clinical Notes Nov, Arthropathy of left hip (ICD-10 - M16.12) [employer] Other 01-17-2023 Evaluation note* Encounter Date Diagnosis Assessment Notes Treatment Notes Treatment Clinical Notes Nov, Arthropathy of left hip (ICD-10 - M16.12) 41 year old female here for follow up and medication refill for chronic pain. She voices complaints of left hip pain. She continues to try to lose weight in an attempt to proceed with a left hip replacement with Dr. Phan. She feels her pain is negatively impacting her activities of daily living. Different treatment options were discussed in detail with the patient, and I will refill her Muscotah as this provides an element of relief. Nov, Other chronic pain (ICD-10 - G89.29) Patient has continued need for Muscotah. OARRS report processed and reviewed and shows no violations. Patient was educated on the risks and benefits of iv therapy nurse opioid use. Muscotah was refilled today, opioid risk assessment was done as well as pill count. Patient is compliant with opioid medication. The patient denies any opioid related side effects. Nov, Avascular necrosis of bone of left hip (ICD-10 - M87.052) Patient recommended to continue follow up with Ortho for surgical intervention. Diet modifications and increased activity as tolerated is encouraged for weight loss. Nov, Morbid obesity (ICD-10 - E66.01) We will send a referral to [facility] as patient has been trying weight loss on her own and has not been successful. [employer] Other 12-27-2022 Evaluation note* Encounter Date Diagnosis Assessment Notes Treatment Notes Treatment Clinical Notes Oct, Arthropathy of left hip (ICD-10 - M16.12) [employer] Other 12-23-2022 Evaluation note* Encounter Date Diagnosis Assessment Notes Treatment Notes Treatment Clinical Notes Oct, Arthropathy of left hip (ICD-10 - M16.12) [employer] Other 12-21-2022 Evaluation note* Encounter Date Diagnosis Assessment Notes Treatment Notes Treatment Clinical Notes Oct, Arthropathy of left hip (ICD-10 - M16.12) 41 year old female here for follow up and medication refill for chronic pain. She voices complaints of left hip pain. She continues to try to lose weight in an attempt to proceed with a left hip replacement with Dr. Phan. She feels her pain is negatively impacting her activities of daily living. Different treatment options were discussed in detail with the patient, and I will refill her Muscotah as this provides an element of relief. Oct, Other chronic pain (ICD-10 - G89.29) Patient has continued need for Muscotah. OARRS report processed and reviewed and shows no violations. Patient was educated on the risks and benefits of iv therapy nurse opioid use. Muscotah was refilled today, opioid risk assessment was done as well as pill count. Patient is compliant with opioid medication. The patient denies any opioid related side effects. Oct, Avascular necrosis of bone of left hip (ICD-10 - M87.052) Patient recommended to continue follow up with Ortho for surgical intervention. Diet modifications and increased activity as tolerated is encouraged for weight loss. [employer] Other 12-16-2022 Evaluation note* Encounter Date Diagnosis Assessment Notes Treatment Notes Treatment Clinical Notes Oct, Greater trochanteric pain syndrome (ICD-10 - M25.559) [employer] Other 11-22-2022 Evaluation note* Encounter Date Diagnosis Assessment Notes Treatment Notes Treatment Clinical Notes Sep, Arthropathy of left hip (ICD-10 - M16.12) 41 year old female here for follow up and medication refill for chronic pain. She voices complaints of left hip pain. She feels Muscotah once daily is helping, but not wears off quickly. She states she will wait until her pain gets up to 8 or 9/10 until she takes one, then it will bring it down toa 4 or 5/10. She rates her pain 5/10 currently. Pt states that she has started using the walker more at home to aid with ambulation. She still also takes the Tylenol arthritis and celebrex. She feels pain is negatively impacting her daily activities and sleeping pattern. I will increase norco to BID to help better manage her pain as she is in the process of scheduling surgery for her left hip. Sep, Other chronic pain (ICD-10 - G89.29) Patient was prescrobed Muscotah today. OARRS report processed and reviewed and shows no violations. Patient was educated on the risks and benefits of opioid use. Opioid risk assessment was done. The patient denies any opioid related side effects with medications in the past. She signed an Opioid contract in the office today. UDS performed through [facility] today, will await confirmatory results. Sep, Avascular necrosis of bone of left hip (ICD-10 - M87.052) Patient recommended to continue follow up with Ortho for surgical intervention. Diet modifications and increased activity as tolerated is encouraged for weight loss. Discussed option to consult with [facility]. Continue with medication mgmt as discussed. [employer] Technology Other 11-10-2022 Evaluation note* Encounter Date Diagnosis Assessment Notes Treatment Notes Treatment Clinical Notes Sep, Arthropathy of left hip (ICD-10 - M16.12) 41 y/o female here with complaints of left hip pain which started in August 2021 after she slipped. She states she has tried 2 prior intra-articular hip injections which provided minimal pain relief. She is currently seeing Dr. Phan, she would like to proceed with a total hip arthroplasty however she cannot proceed with this until November 2022 due to her recent steroids. She also needs to bring her BMI down to less than 40. She currently takes Tylenol Arthritis and Celebrex once daily. Patient states she has taken Percocet as needed in the past with relief, however this has been discontinued for 2 years. She feels pain ic negatively impacting her daily activities and sleeping pattern. She rates her pain 6/10. Different treatment options were discussed with the patient, however therapeutic injections are not indicated for AVN. I will prescribe medication to manage her pain as she is in the process of scheduling surgery for her left hip. Sep, Other chronic pain (ICD-10 - G89.29) Patient was prescrobed [place] today. OARRS report processed and reviewed and shows no violations. Patient was educated on the risks and benefits of opioid use. Opioid risk assessment was done. The patient denies any opioid related side effects with medications in the past. She signed an Opioid contract in the office today. UDS performed through [facility] today, will await confirmatory results. Sep, Avascular necrosis of bone of left hip (ICD-10 - M87.052) Patient recommended to continue follow up with Ortho for surgical intervention. Diet modifications and increased activity as tolerated is encouraged for weight loss. Discussed option to consult with [facility]. Continue with medication mgmt as discussed. Sep, Other Medical deci qian making shows a new problem to me with further workup planned or suggested with the potential for extensive treatment options that were considered with the most applicable given this patient's situation as noted above. Treatment options considered include a combination of physical therapy approaches, pharmacologic management, and interventional procedures. Those most applicable to the patient were discussed at this time. Risk of complications and/or morbidity and mortality is high given that acute and chronic pain poses a threat to life and bodily function if undertreated, poorly treated or with failure to maintain adequate treatment and timely followup. Given the serious and fluctuating nature of pain with extensive consideration for whenever pain changes, there always remains the possibility of prolonged functional impairment requiring constant patient reassessment and high-level medical decision making. The amount and complexity of data reviewed is high given that patient labs, radiology reports, and other test were obtained, reviewed and summarized as applicable from the physician portal and/or outside medical records. Pertinent positive and negative findings were considered in medical decision-making. [employer] Other 07-13-2022 Evaluation note* Encounter Date Diagnosis Assessment Notes Treatment Notes Treatment Clinical Notes May, Left hip pain (ICD-10 - M25.552) May, Other Overall I do no t appreciate anything from a labral pathology or other soft tissue pathology on her MRI. However, there is much more degenerative changes noted anteriorly and superiorly on the MRI than what I can appreciate on the x-ray. As a result, I recommended that we get her set up with Dr. Escobar Yousif for an intra-articular left hip corticosteroid injection. I will plan to see her back 3 months after this injection to check on her progress. In the meantime, I recommended that she follow-up with that [facility] rheumatology referral so that she could get set back up on some of her rheumatoid meds as previously she has had success with Remicade and Toltz but has not been on them since she is moved from [facility]. [employer] Other 04-04-2022 Evaluation note* Encounter Date Diagnosis Assessment Notes Treatment Notes Treatment Clinical Notes Feb, Greater trochanteric pain syndrome (ICD-10 - M25.559) Exam and presentation consistent with greater trochanteric pain syndrome. Patient does report that she had a hip dislocation several months ago that seemed to have resolved but now this pain has flared back up. 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 Today she has mild pain with internal rotation of the hip in the groin area but that is not her concern. Patient already taking Celebrex once or twice a day. States that she typically takes it once a day. She may take it twice a day during this flareup. I discussed other options including short course of oral steroid, steroid injection and physical therapy. Patient would like to try physical therapy first and would then consider a steroid injection. She was provided with paper referral for PT. She may call the location of her choice. [employer] Other 03-01-2022 Evaluation note* Encounter Date Diagnosis Assessment Notes Treatment Notes Treatment Clinical Notes Jan, Night sweats (ICD-10 - R61) Patient has had night sweats for the past 6 months. Describes them as drenching. She states she has had shorter episodes of this in the past as well. Last lab work was almost a year ago. We will go ahead and repeat some routine labs as well as TSH, FS H and LH. Patient does report that her TSH has been off in the past and she was on Synthroid for a short time and then taken back off of it. Pending these results we will consider further work-up to rule out malignancy. Patient denies any family history of cancer. She denies any other symptoms to suggest this as well. Jan, Borderline personali ty disorder (ICD-10 - F60.3) Patient reports a prior diagnosis of borderline personality disorder. She was seeing a psychiatrist and a therapist in [place]. She has had symptoms of depression and anxiety in the past but it has been worked very well controlled on duloxetine. Further she states that her situation has changed and she has been doing very well because of this as well. I did not go into the details of her diagnosis and history given that she is doing so well at this point. I am glad to continue the Cymbalta. Further she does have a diagnosis of fibromyalgia making this is even more appropriate. Jan, Gastroesophageal reflux disease, unspecified whether esophagitis present (ICD-10 - K21.9) Patient has a long history of reflux symptoms. She states she did have a gastric sleeve procedure done several years ago which cause a drastic worsening of her reflux symptoms. She states she takes the pantoprazole every day to keep it under control. She does monitor offending foods as well. Jan, Psoriatic arthritis (ICD-10 - L40.50) Patient states that she was previously on Taltz but has been off it for about 8 months since she moved. She states that her symptoms have been virtually nonexistent since she has been off the Taltz. She attributes this to a change in her setting and improvement in her mental health. At this point she does not wish to see rheumatology or continue medication. She is taking Celebrex daily with good results. She states she has not used Percocet in approximately 5 months. She states prior to that she was using it once or twice a month. [employer] Other 02-22-2022 Evaluation note* Encounter Date Diagnosis Assessment Notes Treatment Notes Treatment Clinical Notes Dec, Contact with and (suspected) exposure to other viral communicable diseases (ICD-10 - Z20.828) Covid test negative, follow up PRN. Dec, Other Additional time spent conducting pre-visit phone call, screening for symptoms, instructions on social distancing, application and removal of PPE, and cleaning of examination room, equipment and supplies was preformed. Patient education given for testing methodology and results. Patient care instructions given in writting by [facility] Care At Home document. [employer] Other 02-16-2022 Evaluation note* Encounter Date Diagnosis Assessment Notes Treatment Notes Treatment Clinical Notes Dec, Contact with and (suspected) exposure to other viral communicable diseases (ICD-10 - Z20.828) Dec, Other Additional time spent conducting pre-visit phone call, screening for symptoms, instructions on social distancing, application and removal of PPE, and cleaning of examination room, equipment and supplies was preformed. Patient education given for testing methodology and results. Patient care instructions given in writting by [facility] Care At Home document. [employer] Other Evaluation noteNo InformationNort [employer] Other Evaluation noteNo assessment information available [facility] Work Phone: Evaluation note* Diagnosis Pain- Primary Generalized pain documented in this encounter [facility] note* Diagnosis Arthritis of hip- Primary Unspecified arthropathy, pelvic region and thigh Avascular necrosis of left femur (HCC) documented in this encounter [facility] note* Diagnosis Pain Generalized pain documented in this encounter [facility] general Narrative - Reported* Type Description Date Medical History fibromyalgia Medical History tono-danlos syndrome Medical History PCOS Medical History acne Medical History psoriasis Medical History psoriatic arthritis Medical History borderline personality disorder Surgical History appendectomy 06/2003 Surgical History cholecystectomy 10/2005 Surgical History vertical sleeve gastrectomy 2010 Surgical History left knee surgery-patellar femo ral 09/2019 Hospitalization History Multiple mental health hospitalizations with suicide attempts [employer] Other [place] general Narrative - Reported* Type Description Date Medical History fibromyalgia Medical History tono-danlos syndrome Medical History PCOS Medical History acne Medical History psoriasis Medical History psoriatic arthritis Medical History borderline personality disorder Medical History sleep apnea Surgical History appendectomy 06/2003 Surgical History cholecystectomy 10/2005 Surgical History vertical sleeve gastrectomy 2010 Surgical History left knee surgery-patellar femo ral 09/2019 Hospitalization History Multiple mental health hospitalizations with suicide attempts [employer] Other [place] general Narrative - Reported* Type Description Date Medical History fibromyalgia Medical History tono-danlos syndrome Medical History PCOS Medical History acne Medical History psoriasis Medical History psoriatic arthritis Medical History borderline personality disorder Medical History sleep apnea Medical History Anxiety Medical History Arthritis of bilateral knee Medical History Chronic pain requiring narcotic use Medical History Depression Medical History GERD Medical History Past drug or alcohol problems Medical History Avascular necrosis of hip Surgical History appendectomy 06/2003 Surgical History cholecystectomy 10/2005 Surgical History vertical sleeve gastrectomy 2010 Surgical History left knee surgery-patellar femo ral 09/2019 Hospitalization History Multiple mental health hospitalizations with suicide attempts [employer] Other History general Narrative - Reported* Type Description Date Medical History fibromyalgia Medical History tono-danlos syndrome Medical History PCOS Medical History acne Medical History psoriasis Medical History psoriatic arthritis Medical History borderline personality disorder Medical History sleep apnea Medical History Anxiety Medical History Arthritis of bilateral knee Medical History Chronic pain requiring narcotic use Medical History Depression Medical History GERD Medical History Past drug or alcohol problems Medical History Avascular necrosis of hip Medical History Chronic insomnia Medical History Tachycardia Surgical History appendectomy 06/2003 Surgical History cholecystectomy 10/2005 Surgical History vertical sleeve gastrectomy 2010 Surgical History left knee surgery-patellar femo ral 09/2019 Hospitalization History Multiple mental health hospitalizations with suicide attempts [id number] [facility] [employer] Other Hospital Discharge [facility] Work Phone: Reason for referral (narrative)* Diagnostic Procedure Only (Routine) - Authorized Specialty Diagnoses / Procedures Referred By Jony douglas Referred To Contact XR IMAGING Diagnoses Pain Procedures XR HIP GENERAL 3V PELV/AP/LAT LEFT RADEX HIP UNILATERAL WITH PELVIS 2-3 VIEWS Raya Oliva MD [address], [place] [address] Xr Imaging Referral ID Status Reason Start Date Expiration Date Visits Requested Visits Authorized [id number] Authorized Auto-Generat ed Referral 12/29/2022 01/28/2024 1 1 [facility] for referral (narrative)* Diagnostic Procedure Only (Routine) - Closed Specialty Diagnoses / Procedures Referred By Jony douglas Referred To Contact XR IMAGING Diagnoses Pain Procedures XR HIP GENERAL 3V PELV/AP/LAT LEFT RADEX HIP UNILATERAL WITH PELVIS 2-3 VIEWS Raya Oliva MD [address], [place] [address] Xr Imaging [place] [address] Referral ID Status Reason Start Date Expiration Date V isits Requested Visits Authorized [id number] Closed Auto-Generate d Referral 12/29/2022 01/28/2024 [address] [facility] Diagnostic Procedure Only (Routine) - Closed Specialty Diagnoses / Procedures Referred By Jony t Referred To Contact XR IMAGING Diagnoses Pain Procedures XR HIP GENERAL 3V PELV/AP/LAT LEFT RADEX HIP UNILATERAL WITH PELVIS 2-3 VIEWS Raya Oliva MD [address] [place] [address] [place] [address] Referral ID Status Reason Start Date Expiration Date V isits Requested Visits Authorized [id number] Closed Auto-Generate d Referral 12/29/2022 01/28/2024 [address] [facility] Chief Complaint and Reason for Visit Chief Complaint left hip pain M25.552 M25.55 MM25.552 Left hip pain Chief Complaint Obesity E66.9;K21.9;G89.29;F41.9;F32.9;M19.90;M87.052;E28. Chief Complaint E66.9;K21.9;G89.29;F 41.9;F32.9;M19.90;M87.052;E28. Obesity Screening Chief Complaint E66.9;K21.9;G89.29;F 41.9;F32.9;M19.90;M87.052;E28. Screening M25.551 M25.552 Obesity R40.0 E66.9 G47.00 R61 R00.2 R00.0 Q79.60 Chief Complaint Obesity Unspecified sleep apnea results-per pt request Chief Complaint Obesity Unspecified sleep apnea results-per pt request f31.0/Z51.81 Chief Complaint Obesity Unspecified sleep apnea results-per pt request f31.0/Z51.81 [facility] Chief Complaint f31.0/Z51.81 [facility] 2 month/ mehul Chief Complaint 2 month/ mehul Advance Directives No Advanced Directives Records Found Advance Directive Response Recorded Date/ Time Advance Directives No December 11:04am Advance Directive Response Recorded Date/ Time Advance Directives No December 10:04am Summary Purpose Family History No Family History Records FoundNo Family History Records FoundNo Family History Records FoundNo Family History Records FoundNo Family History Records Found Reason for Referral Reason 02/01/23 EMG of le ft LE to evaluate for possible lumbar radiculopathy Diagnosis 1 Left leg pain (M79.6 05) Referral Organization [facility] Referring Provider First Name Eleanor Referring Provider Last Name Mani Referring Provider Specialty Nurse Pract itioner Referred Organization [facility] Referred Provider Cony Reed Referred Address [address] [place], [place],[address] Referred Provider Specialty Neurology Referral Priority Routine Referral Appointment Date 2023-02-01 General Notes Maria Luisa Harrell 03:22:40 PM >received, will send referral out one Eleanor's note is completed and locked Maria Luisa Harrell 01/20/2023 10:35:18 AM >Eleanor's note is now completed and locked. P2p sent to [facility] for scheduling. Maria Luisa Harrell 01/27/2023 08:41:06 AM >faxed first follow up letter MariaL uisa Harrell 01/27/2023 02:49:30 PM >received confirmation that patient is scheduled 02/01/23 Sandra Renner Gt 02/02/2023 08:42:33 AM >EMG Report in chart Reason eval and treat Diagnosis 1 Morbid obesity (E66. 01) Referral Organization [facility] Referring Provider First Name Eleanor Referring Provider Last Name Singleton Referring Provider Specialty Nurse Pract itioner Referred Organization [facility] Referred Provider Luis Velez Referred Address [address] [address],[place], [place],[address] Referred Provider Specialty Internal Med icine Referral Priority Routine Referral Appointment Date 2023-01-24 General Notes Yesica Hassan V 09:28:13 AM >the referral form will be scanned to chart shortly. Thanks! Maria Luisa Harrell 2022 01:33:40 PM >received the form. sending the p2p referral at this time. Maria Luisa Harrell 12/16/2022 10:14:21 AM >pt is scheduled 01/24/23 at 12:45 Additional Source Comments REASON FOR VISIT (unrecogniz ed section and content) Reason Comments New Care Teams (unrecognized sec tion and content) Team Status: Active Member Role Status Dates Ai Pressley , PAINT POURER-C Primary Care Provider Active Team Status: Active Member Role Status Dates Eleanor Singleton NP Attending Provider Active PHYSICIAN NO FAMILY Primary Care Provider Active Team Status: Inactive Member Role Status Dates Ai Pressley , PAINT POURER-C Primary Care Provider Active Raman Laura MD Attending Provider Active Team Status: Inactive Member Role Status Dates Ai Pressley , PAINT POURER-C Primary Care Provider Active Katarzyna Carmichael APRN Attending Provider Active Team Status: Inactive Member Role Status Dates Ricky Quarles , DO Primary Care Provider Active Jones Caceres II, MD Attending Provider Active Team Status: Inactive Member Role Status Dates Jones Caceres II, MD Attending Provider Active Ai Pressley , PAINT POURER-C Primary Care Provider Active Team Status: Inactive Member Role Status Dates Ricky Quarles , DO Primary Care Provider Active Jethro Perez , DO Emergency Provider Active Quality Officer Relationship Specialty Start Date End Date Huan Ai Porter APRN [address] [place] [address] Referring [facility] Medicine 05/30/22 Team Status: Inactive Member Role Status Dates Adelaide Zavala MD Attending Provider Active Ai Pressley , PAINT POURER-C Primary Care Provider Active Team Status: Inactive Member Role Status Dates Ai Pressley , PAINT POURER-C Primary Care Provider Active Karin Altamirano NP-C Attending Provider Active Team Status: Inactive Member Role Status Dates Ai Pressley , PAINT POURER-C Primary Care Provider, Attendi ng Provider Active Team Status: Inactive Member Role Status Dates Raman Laura MD Attending Provider Active Katarzyna Carmichael , ARDEN Referring Provider Active Ai Pressley , PAINT POURER-C Primary Care Provider Active Quality Officer Relationship Specialty Start Date End Date Huan Ai Porter, AR[place] [address] [place] [address] Referring Family Medicine 05/30/22 Quality Officer Relationship Specialty Start Date End Date Huan Ai Porter, ARDEN [address] [place] [address] Referring Family Medicine 05/30/22 Team Status: Active Member Role Status Dates PHYSICIAN NO FAMILY Primary Care Provider Active Team Status: Inactive Member Role Status Dates Raman Laura MD Attending Provider Active PHYSICIAN NO FAMILY Primary Care Provider Active Goals (unrecognized section and content) Goals may be documented in a n alternate section INFORMATION SOURCE (unrecogn ized section and content) DATE CREATED AUTHOR 10/06/2022 [facility] DATE CREATED AUTHOR AUTHOR'S ORGANIZ ATION 08/14/2023 [facility] DATE CREATED AUTHOR AUTHOR'S ORGANIZ ATION 12/01/2023 [facility] DATE CREATED AUTHOR AUTHOR'S ORGANIZ ATION 12/19/2023 [facility] DATE CREATED AUTHOR AUTHOR'S ORGANIZ ATION 01/06/2024 [facility] Source Comments (unrecognize d section and content) In the event this informatio n is protected by the Federal Confidentiality of Alcohol and Drug Abuse Patient Records regulations: The Federal rules restrict any use of the information to criminally investigate or prosecute any alcohol or drug abuse patient.[facility] the event this information is protected by the Federal Confidentiality of Alcohol and Drug Abuse Patient Records regulations: The Federal rules restrict any use of the information to criminally investigate or prosecute any alcohol or drug abuse patient.[facility] the event this information is protected by the Federal Confidentiality of Alcohol and Drug Abuse Patient Records regulations: The Federal rules restrict any use of the information to criminally investigate or prosecute any alcohol or drug abuse patient.[facility] FOR RECORDS PERTAINING TO PATIENTS WHO ARE OR HAVE BEEN ENROLLED IN A CHEMICAL DEPENDENCY/SUBSTANCEABUSE PROGRAM, SOME INFORMATION MAY BE OMITTED. This clinical summary was aggregated from multiple sources. Caution should be exercised in using it in the provision of clinical care. This summary normalizes information from multiple sources, and as a consequence, information in this document may materially change the coding, format and clinical context of patient data. In addition, data may be omitted in some cases. CLINICAL DECISIONS SHOULD BE BASED ON THE PRIMARY CLINICAL RECORDS. [facility] [employer] [facility]. provides no warranty or guarantee of the accuracy or completeness of information in this document.
[2024-01-25] MEDS: REGADENOSON 0.4 MG/5 ML SYRINGE 0.400000000000000022 MG IV (09:04)
== END 2024-01-25 07:31 | disposition home or self-care (01) ==
LOC: NM 07:30
PROVIDERS: PCP Physician Assistant; Visit Provider Internal Medicine Interventional Cardiology
DX: Z01.818 Encounter for other preprocedural examination (principal); Z01.810 Encounter for preprocedural cardiovascular examination; R00.0 Tachycardia, unspecified
CPT/HCPCS: 78452; 93017; A9500; J2785

== ENCOUNTER 2024-02-22 15:05 | Outpatient (OUT) | payer MEDICAID, SELFPAY ==
--- NOTE | 2024-02-22 15:16 | XR_ITS ---
[address] [address] Patient Name: CHERIE CAPELLAN MRN: [id number] date: 1980 Sex: F Assigned Patient Location: [facility] Current Patient Location: Accession/Order Number: [id number] Exam Date: 02/22/2024 15:10 Report Date: 02/23/2024 07:13 At the request of: NELSON YING Procedure: XR knee RT 3V PROCEDURE: XR knee RT 3V COMPARISON: None. HISTORY: right knee pain FINDINGS: BONES:No acute fracture or dislocation. Moderate joint osteoarthropathy with marginal osteophyte formation. Moderate narrowing of the medial joint space. SOFT TISSUES:Negative. No visible soft tissue swelling. EFFUSION:Trace suprapatellar joint effusion OTHER: Negative. XR/XR knee RT 3V IMPRESSION: Moderate tricompartment osteoarthritis Electronically authenticated by: CHRIS PERALES Date: 02/23/2024 07:13
--- OUTSIDE RECORDS SUMMARY | 2024-02-22 15:27 | XMS_ITS | CCD ---
Author Organization [facility] Care Team Providers Care Crossbow Maker Name Role Phone Maria Luisa Anand Unavailable Javier Pham Unavailable Curtis Lind Unavailable Ricky Quarles Unavailable Curtis Yousif Unavailable Jones Caceres II Unavailable DO Ricky Quarles Primary Care Provider [phone] DO Jethro Perez Emergency Provider Unavai MD Jones Glass II Attending Provider [phone] PIEDAD Pressley Primary Care Provider [phone] DR JETHRO ORDONEZ Admitting Unavailable JOSÉ LUIS, DR MORELOS Attending Unavailable MARLENE, DR CONY Camarena Consulting Unavailable JOSÉ LUIS, DR MORELOS Consulting Unavailable JOSÉ LUIS, DR MORELOS Admitting Unavailable JOSÉ LUIS, DR MORELOS Attending Unavailable JOSÉ LUIS, DR MORELOS Consulting Unavailable Eleanor Singleton Unavailable Ai Pressley APRN Unavailable [phone] Billy Mccoy Unavailable GIACOMO Singleton Attending Provider NO FAMILY, PHYSICIAN Primary Care Provider Unava ilable PIEDAD Pressley Primary Care Provider [phone] ARDEN Carmichael Attending Provider Katarzyna Carmichael Unavailable PIEDAD Pressley Primary Care Provider ARDEN Carmichael Attending Provider [phone] GIACOMO Singleton Attending Provider NO FAMILY, PHYSICIAN Primary Care Provider Unava MD Adelaide Gagnon Attending Provider [phone] PIEDAD Altamirano Attending Provider Sandra Hurley Unavailable GIACOMO Singleton Attending Provider [phone] NO FAMILY, PHYSICIAN Primary Care Provider Unava ilable MD Raman Laura Attending Provider [phone] ARDEN Carmichael Referring Provider GIACOMO Pressley-C Ai Nolasco Attending Provider Raman Laura Unavailable GIACOMO Singleton Eleanor Attending Provider NO FAMILY, PHYSICIAN Primary Care Provider Unava ilable GIACOMO Pressley-C Ai Nolasco Primary Care Provider MD Raman Laura Attending Provider Ai Pressley APRN Unavailable RAYA OLIVA Attending Unavailable RAYA OLIVA Referring Unavailable GIACOMO Pressley-C Ai Nolasco Primary Care Provider [phone] MD Raman Laura Attending Provider NO FAMILY, PHYSICIAN Primary Care Provider Unava yobani PHAN JR., VERONICA Tapia Attending Unavailnic PHAN JR., VERONICA Tapia Attending Unavailnic PHAN JR., VERONICA Tapia Referring Unavaila ADELAIDE Arthur Attending Unavailable MD Raman Laura Attending Provider Raman Laura Attending Unavailable Raman Laura Admitting Unavailable Huan, Ai N Primary Care Unavailable Raman Laura Admitting Unavailable Raman Laura Attending Unavailable Huan, Ai N Primary Care Unavailable Raman Laura Attending Unavailable Raman Laura Admitting Unavailable Huan, Ai N Primary Care Unavailable NO FAMILY, PHYSICIAN Primary Care Unavailable Raman Laura Attending Unavailable Raman Laura Admitting Unavailable Singleton, Eleanor Admitting Unavailable Singleton, Eleanor Attending Unavailable NO FAMILY, PHYSICIAN Primary Care Unavailable Katarzyna Carmichael Admitting Unavailable Katarzyna Carmichael Attending Unavailable Huan, Ai N Primary Care Unavailable Adelaide Zavala Admitting Unavailable Adelaide Zavala Attending Unavailable Lonnie Pressleysay N Primary Care Unavailable Karin Altamirano Admitting Unavailable Karin Altamirano Attending Unavailable Huan, Ai N Primary Care Unavailable sarah bethAna PaulaKatarzyna R Referring Unavailable Raman Laura Attending Unavailable Raman Laura Admitting Unavailable Lonnie Pressleysay Frederick Primary Care Unavailable Sandrita Pressleyy N Primary Care Unavailable Huan Ai N Attending Unavailable HuanSandritay N Admitting Unavailable Raman Laura Attending Unavailable Raman Laura Admitting Unavailable Lonnie Pressleysay N Primary Care Unavailable YEIMI CROSS Attending Unavailable Karissa Cabrera Attending Unavailable Allergies Allergy Classification Reported Allergen(s) Allergy Type Date of Onset Reaction(s) Facility (10 sources) Penicillin V Drug Allergy rash v2tel Other (20 sources) Penicillin Drug Allergy 08-31-[address] [facility] Repository (20 sources) metFORMIN; Translations: [METFORMIN] Drug Allergy 08-12-2023 Unknown [facility] (3 sources) Penicillins; Translations: [PENICILLINS] Drug Allergy 08-04-2012 Unknown [facility] (1 source) metFORMIN Drug Allergy 12-30-2023 [facility] Repository (1 source) Penicillins Drug allergy (disorder) 12-30-2023 [facility] Repository Medications Current Medications Medication Drug [...] Start: 08-04-2023 take 1 tablet by nikos twice daily as needed HYDROcodone-Acetaminophen 5-325 MG [...] once daily as needed for 14 days 89. Chronic Pain Sep, Active Start: 09-24-2022 HYDROcodone-ac [...] tablet (10 sources) Nonsteroidal Anti-inflammatory Drug Start: 2 take 1 tablet by mouth twice daily Naproxen (Naprosyn) 500 mg tablet Active 500 MG PO Twice daily 10 May 16, 2022 11:00pm vitamin B12 (20 sources) Vitamin B12 cyanocobalamin ( VITAMIN B-12) 1,000 mcg tab Take 2,000 mcg by mouth. 0 Active Vitamin B12 Acti ve Comment on above: Take 2,000 mcg by [facility]. Vitamin D (15 sources) Vitamin D 5000 I U Active Completed/Discontinued Medications Medication Drug Class(es) Dates Sig (Normalized) Sig (Original) 8 hr acetaminophen 650 mg extended release oral tablet (20 sources) take 1 tablet by mouth every eight hours Acetaminophen ER 650 MG 1 tablets as needed Orally every 8 hrs Not-Taking/PRN take 1 tablet by [facility] every eight hours as needed Acetaminophen ER 650 MG 1 tablets as nee ded Orally every 8 hrs Not-Taking celecoxib 200 mg oral capsule (20 sources) Nonsteroidal Anti-inflammatory Drug Start: 03-25-2021 celecoxib (CELEBREX) 200 mg capsule take 1 capsule by [facility] every twelve hours CeleBREX 200 MG 1 [...] Comment on above: Take 1 tablet by nikos once daily. 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 Told her I'd fax this documentation to Dr. Diaz's office. Normal [facility] Family Medicine Office/Clini c Noteon 02-06-2024 Family Medicine Office/Clinic Note HPI Staff Nataliia is a 43 year old female presenting to [facility] Establish Care: History: Any previous diagnosis: Anxiety/Depression, Psoriatic arthritis, Bipolar Type 2, Hypermoble tono-danlos History of seeing any specialist: Psychiatrist When was your last doctors visit: Last provider: Cathryn Pressley Any recent labs: [facility] 12/02/2023 Health Maintenance UTD: Colonoscopy: no Mammogram: 08/2023 Normal [facility] [place] [facility] Pelvic/Pap: every 6 months Hx of abnormal has appointment in 08/2024 Acute: Current issues/complaints: pt having left hip replaced soon and is currently seeing pain management Pt states right knee pain over the last 2 months worse over the last 2 weeks, has been using a cane for about a year is unable to walk without it. Knee feels tight and unstable. History of Present Illness pt presents today to establish care Review of Systems ROS - Provider Constitutional: no fever, no chills, no sweats, no fatigue Respiratory: no shortness of breath, no cough, no orthopnea, no wheezing. Cardiovascular: no chest pain, no palpitations, no edema. Neurologic: no headache, no dizziness, no numbness, no weakness. Physical Exam Vitals & Measurements HR: 70(Peripheral) RR: 18 BP: 124/76 HT: 65 in HT: 164 cm WT: 108.45 kg WT: 238.59 lb BMI: 40.32 General: alert, no acute distress ENMT: oral mucosa moist, no pharyngeal erythema or exudate Cardiovascular: regular rate and rhythm, normal peripheral perfusion Respiratory: Lungs CTA, respirations non labored Extremities: no deformity, no trauma Neurological: oriented x 4, LOC appropriate for age, CN II-XII intact, motor strength equal & normal bilaterally, speech normal Assessment/Plan 1. Right knee pain (M25.561: Pain in right knee) pt c/o right knee pain. had to have surgery on left knee years ago. and feels the right knee is doing the same thing. she has been doing stretches, celebrex and heat for about 6-7 weeks. will order x raty to be done at [facility]., pt will continue exercises and stretching and will be going to physical therapy after hip surgery. RTC as needed. pt has been cleared by cardiology for her up coming surgery. also had to have 7 teeth pulled 2. BMI 40.0-44.9, adult (Z68.41: Body mass index [BMI] 40.0-44.9, adult) BMI education complete. pt has to get below 40 BMI in order to have hip surgery 3. Non-smoker (Z78.9: Other specified health status) continue not smoking Follow-up No qualifying data available Problem List/Past Medical History Ongoing Right knee pain Historical No qualifying data Medications acetaminophen-hydroco done 325 mg-5 mg oral tablet carbamazepine 200 mg Tab celecoxib 200 mg Cap duloxetine 60 mg oral delayed release capsule hydrOXYzine pamoate 25 mg Cap Allergies metFORMIN (Diarrhea) penicillins Social History Tobacco Never (less than 100 in lifetime) Tobacco Use:. Never Smokeless Tobacco Use:. Household tobacco concerns: No., 02/06/2024 Immunizations Vaccine Date Status SARS-CoV-2 (COVID-19) mRNA BNT-162b2 vax 11/13/2021 Recorded Normal [facility] Comment on above: Result Comment: Elec tronically Signed By: Karissa Morton\devonte\Date and Time Signed: 02/06/24 09:58 EDT [facility] 02-06-2024 Lab Reports [id number] .[id number] Normal [facility] Physician Orderon 02-06-2024 Physician Order [id number] .00TIFF Normal [facility] Office Visiton 12-19-2023 Follow-up visit [id number] Nataliia Nelson 1980 F Date Provider Department Center 12/19/2023 [id number], YEIMI CARD [facility] Family History Problem Relation Age of Onset Hypertension Mother Kidney cancer Father Kidney cancer Maternal Grandmother Heart failure Maternal Grandfather Aortic aneurysm Paternal Grandmother Family Status - Relation Status Age at Mother Father Maternal Grandmother Maternal Grandfather Paternal Grandmother Level of Service:54305 AL OFFICE/OUTPATIENT NEW MODERATE MDM 45 MINUTES Normal [facility] Basophils Auto (Bld) [#/Vol] Ordered By: Raman Laura on 09-01-2023 Basophils (Bld) [#/Vol] 0.0 10*3/uL 0.0-0.2 [facility] Basophils/100 WBC Auto (Bld) Ordered By: Raman Laura on 09-01-2023 Basophils/100 WBC (Bld) 0.6 % . [facility] Complete Blood Count Auto Di ffon 09-01-2023 Basophils (Bld) [#/Vol] 0.0 10*3/uL Normal 0.0-0.2 [facility] Comment on above: Order Comment: Reaso n for Exam Obesity;Gastroesophageal reflux disease, unspecified whether Result Comment: PERF ORMED BY: [facility] [address] [place] [address] PATHOLOGIST LOAN REVIEW ANALYST AAMIR TORRES M.D. Performed By: #### C MP, A1C WTH eA, CBC, [id number], TSH3 wRFLX, B12, LIPID #### [facility] [address] Basophils/100 WBC (Bld) 0.6 % Normal . [facility] Comment on above: Order Comment: Reaso n for Exam Obesity;Gastroesophageal reflux disease, unspecified whether Performed By: #### C MP, A1C WTH eA, CBC, [id number], TSH3 wRFLX, B12, LIPID #### [facility] [address] Eosinophils (Bld) [#/Vol] 0.2 10*3/uL Normal 0.0-0.45 [facility] Comment on above: Order Comment: Reaso n for Exam Obesity;Gastroesophageal reflux disease, unspecified whether Performed By: #### C MP, A1C WTH eA, CBC, [id number], TSH3 wRFLX, B12, LIPID #### [facility] [address] Eosinophils/100 WBC (Bld) 3.5 % Normal . [facility] Comment on above: Order Comment: Reaso n for Exam Obesity;Gastroesophageal reflux disease, unspecified whether Performed By: #### C MP, A1C WTH eA, CBC, [id number], TSH3 wRFLX, B12, LIPID #### [address] Erythrocyte distribution width (RBC) [Ratio] 15.0 % Normal 11.9-15.3 [facility] Comment on above: Order Comment: Reaso n for Exam Obesity;Gastroesophageal reflux disease, unspecified whether Performed By: #### C MP, A1C WTH eA, CBC, [id number], TSH3 wRFLX, B12, LIPID #### [facility] [address] Hematocrit (Bld) [Volume fraction] 36.1 % Normal 34.0-46.4 [facility] Comment on above: Order Comment: Reaso n for Exam Obesity;Gastroesophageal reflux disease, unspecified whether Performed By: #### C MP, A1C WTH eA, CBC, [id number], TSH3 wRFLX, B12, LIPID #### [facility] [address] Hemoglobin (Bld) [Mass/Vol] 12.0 g/dL Normal 11.8-15.4 [facility] Comment on above: Order Comment: Reaso n for Exam Obesity;Gastroesophageal reflux disease, unspecified whether Performed By: #### C MP, A1C WTH eA, CBC, [id number], TSH3 wRFLX, B12, LIPID #### [facility] [address] Lymphocytes (Bld) [#/Vol] 1.4 10*3/uL Normal 1.00-4.8 [facility] Comment on above: Order Comment: Reaso n for Exam Obesity;Gastroesophageal reflux disease, unspecified whether Performed By: #### C MP, A1C WTH eA, CBC, [id number], TSH3 wRFLX, B12, LIPID #### [address] Lymphocytes/100 WBC (Bld) 29.0 % Normal . [facility] Comment on above: Order Comment: Reaso n for Exam Obesity;Gastroesophageal reflux disease, unspecified whether Performed By: #### C MP, A1C WTH eA, CBC, [id number], TSH3 wRFLX, B12, LIPID #### [address] MCH (RBC) [Entitic mass] 28.6 pg Normal 24.7-34.3 [facility] Comment on above: Order Comment: Reaso n for Exam Obesity;Gastroesophageal reflux disease, unspecified whether Performed By: #### C MP, A1C WTH eA, CBC, [id number], TSH3 wRFLX, B12, LIPID #### [address] MCV (RBC) [Entitic vol] 85.8 fL Normal 80-100 [facility] Comment on above: Order Comment: Reaso n for Exam Obesity;Gastroesophageal reflux disease, unspecified whether Performed By: #### C MP, A1C WTH eA, CBC, [id number], TSH3 wRFLX, B12, LIPID #### [facility] [address] Mean Corpuscular HGB Conc 33.3 g/dL Normal 32.0-35.0 [facility] Comment on above: Order Comment: Reaso n for Exam Obesity;Gastroesophageal reflux disease, unspecified whether Performed By: #### C MP, A1C WTH eA, CBC, [id number], TSH3 wRFLX, B12, LIPID #### [facility] [address] Monocytes (Bld) [#/Vol] 0.4 10*3/uL Normal 0.0-0.8 [facility] Comment on above: Order Comment: Reaso n for Exam Obesity;Gastroesophageal reflux disease, unspecified whether Performed By: #### C MP, A1C WTH eA, CBC, [id number], TSH3 wRFLX, B12, LIPID #### [facility] [address] Monocytes/100 WBC (Bld) 8.9 % Normal . [facility] Comment on above: Order Comment: Reaso n for Exam Obesity;Gastroesophageal reflux disease, unspecified whether Performed By: #### C MP, A1C WTH eA, CBC, [id number], TSH3 wRFLX, B12, LIPID #### [facility] [address] [place] [address] [place] Neutrophils (Bld) [#/Vol] 2.8 10*3/uL Normal 1.8-7.7 [facility] Comment on above: Order Comment: Reaso n for Exam Obesity;Gastroesophageal reflux disease, unspecified whether Performed By: #### C MP, A1C WTH eA, CBC, [id number], TSH3 wRFLX, B12, LIPID #### [facility] [address] [place] [address] [place] Neutrophils/100 WBC (Bld) 58.0 % Normal . [facility] Comment on above: Order Comment: Reaso n for Exam Obesity;Gastroesophageal reflux disease, unspecified whether Performed By: #### C MP, A1C WTH eA, CBC, [id number], TSH3 wRFLX, B12, LIPID #### [facility] [address] NRBC% 0.2 /100{WBC} Normal 0-0.5 [facility] Comment on above: Order Comment: Reaso n for Exam Obesity;Gastroesophageal reflux disease, unspecified whether Performed By: #### C MP, A1C WTH eA, CBC, [id number], TSH3 wRFLX, B12, LIPID #### [facility] [address] [place] [address] Platelet mean volume (Bld) [Entitic vol] 8.9 fL Normal 6.3-10.7 [facility] Comment on above: Order Comment: Reaso n for Exam Obesity;Gastroesophageal reflux disease, unspecified whether Performed By: #### C MP, A1C WTH eA, CBC, [id number], TSH3 wRFLX, B12, LIPID #### [address] Platelets (Bld) [#/Vol] 294 10*3/uL Normal 150-450 [facility] Comment on above: Order Comment: Reaso n for Exam Obesity;Gastroesophageal reflux disease, unspecified whether Performed By: #### C MP, A1C WTH eA, CBC, [id number], TSH3 wRFLX, B12, LIPID #### [address] RBC (Bld) [#/Vol] 4.21 10*6/uL Normal 3.60-5.00 [facility] Comment on above: Order Comment: Reaso n for Exam Obesity;Gastroesophageal reflux disease, unspecified whether Performed By: #### C MP, A1C WTH eA, CBC, [id number], TSH3 wRFLX, B12, LIPID #### [address] WBC (Bld) [#/Vol] 4.8 10*3/uL Normal 3.8-11.6 [facility] Comment on above: Order Comment: Reaso n for Exam Obesity;Gastroesophageal reflux disease, unspecified whether Performed By: #### C MP, A1C WTH eA, CBC, [id number], TSH3 wRFLX, B12, LIPID #### [facility] [address] [place] [id number] [facility] Eosinophils Auto (Bld) [#/Vo l]Ordered By: Raman Laura on 09-01-2023 Eosinophils (Bld) [#/Vol] 0.2 10*3/uL 0.0-0.45 [facility] Eosinophils/100 WBC Auto (Bl d)Ordered By: Raman Laura on 09-01-2023 Eosinophils/100 WBC (Bld) 3.5 % . [facility] Erythrocyte distribution wid th Auto (RBC) [Ratio]Ordered By: Raman Laura on 09-01-2023 Erythrocyte distribution width (RBC) [Ratio] 15.0 % 11.9-15.3 [facility] Hematocrit Auto (Bld) [Volum e fraction]Ordered By: Raman Laura on 09-01-2023 Hematocrit (Bld) [Volume fraction] 36.1 % 34.0-46.4 [facility] Hemoglobin [Mass/volume] in BloodOrdered By: Raman Laura on 09-01-2023 Hemoglobin (Bld) [Mass/Vol] 12.0 g/dL 11.8-15.4 [facility] Leukocytes [#/volume] correc omar for nucleated erythrocytes in Blood by Automated counOrdered By: Raman Laura on 09-01-2023 WBC corrected for nucl RBC Auto (Bld) [#/Vol] 4.8 10*3/uL 3.8-11.6 [facility] Lymphocytes Auto (Bld) [#/Vo l]Ordered By: Raman Laura on 09-01-2023 Lymphocytes (Bld) [#/Vol] 1.4 10*3/uL 1.00-4.8 [facility] Lymphocytes/100 WBC Auto (Bl d)Ordered By: Raman Laura on 09-01-2023 Lymphocytes/100 WBC (Bld) 29.0 % . [facility] MCH Auto (RBC) [Entitic mass ]Ordered By: Raman Laura on 09-01-2023 MCH (RBC) [Entitic mass] 28.6 pg 24.7-34.3 [facility] MCHC Auto (RBC) [Mass/Vol]Or dered By: Raman Laura on 09-01-2023 MCHC (RBC) [Mass/Vol] 33.3 g/dL 32.0-35.0 [facility] MCV Auto (RBC) [Entitic vol] Ordered By: Raman Laura on 09-01-2023 MCV (RBC) [Entitic vol] 85.8 fL 80-100 [facility] Monocytes Auto (Bld) [#/Vol] Ordered By: Raman Laura on 09-01-2023 Monocytes (Bld) [#/Vol] 0.4 10*3/uL 0.0-0.8 [facility] Monocytes/100 WBC Auto (Bld) Ordered By: Raman Laura on 09-01-2023 Monocytes/100 WBC (Bld) 8.9 % . [facility] Neutrophils Auto (Bld) [#/Vo l]Ordered By: Raman Laura on 09-01-2023 Neutrophils (Bld) [#/Vol] 2.8 10*3/uL 1.8-7.7 [facility] Neutrophils/100 WBC Auto (Bl d)Ordered By: Raman Laura on 09-01-2023 Neutrophils/100 WBC (Bld) 58.0 % . [facility] Nucleated erythrocytes [Pres ence] in Blood by Automated countOrdered By: Raman Laura on 09-01-2023 Nucleated RBC Auto Ql (Bld) 0.2 /100{WBC} 0-0.5 [facility] Platelet mean volume Auto (B ld) [Entitic vol]Ordered By: Raman Laura on 09-01-2023 Platelet mean volume (Bld) [Entitic vol] 8.9 fL 6.3-10.7 [facility] Platelets Auto (Bld) [#/Vol] Ordered By: Raman Laura on 09-01-2023 Platelets (Bld) [#/Vol] 294 10*3/uL 150-450 [facility] RBC Auto (Bld) [#/Vol]Ordere d By: Raman Laura on 09-01-2023 RBC (Bld) [#/Vol] 4.21 10*6/uL 3.60-5.00 [facility] WBC Auto (Bld) [#/Vol]Ordere d By: Raman Laura on 09-01-2023 WBC (Bld) [#/Vol] 4.8 10*3/uL 3.8-11.6 [facility] CNOVon 08-12-2023 CNOV Office Visit (ORTHMN ) NATALIIA NELSON ([id number]) 1980 F Date Time Provider Department 08/12/23 [...] the care of pain management and take [place] 5/325 1/2 tab bid Was told needs [...] including metal or ceramic with cross-linked polyethylene, tcwgrnz-tr-hxflpoi and inrae-ve-ekubb as well as advantages and disadvantages of [...] low ri (more content not included)... Normal [facility] XR HIP 3V PELV+ AP/LAT LTon 08-12-2023 [...] abnormality. IMPRESSION: Moderately advanced left hip osteoarthritis. Senior Engineering Specialist: PSCB Transcribe Date/Time: Aug 12 2023 2:37P Dictated by : TERESA STEPHENS MD This examination was interpreted and the report reviewed and electronically signed by: TERESA STEPHENS MD on Aug 12 2023 2:38PM EST [id number] Normal [facility] XR HIP GENERAL 3V PELV/AP/LA T LEFTon 08-12-2023 [facility] holter monitor recordingo n 04-29-2023 [place] holter monitor recording [facility] [place] [address] Holter Monitor Report Signed Patient: Nataliia Nelson MR#: [id number] : 1980 Acct:[id number] Age/Sex: 42 / F ADM Date: 04/24/23 Loc: Room: Type: [facility] Attending Dr: Ai ODELLC Copies to: Arabella Rosales MD, [facility] Ai HERBERT Ordering Provider: Ai HERBERT Date [...] 04/29/23 1756 Dictated By: Arabella Rosales MD, [facility] 04/29/23 1655 Signed By: 05/02/23 1055 Normal [facility] XR knee RT 4V*on 03-11-2023 XR knee RT 4V* [facility] [place] [address] XRay Report Signed Patient: Nataliia Nelson MR#: [id number] : 1980 Acct:[id number] Age/Sex: 42 / F ADM Date: 03/11/23 Loc: XDUC [facility]: Karin ODELLC Copies to: PIEDAD Caballero Ordering Provider: PIEDAD Caballero Date of Service: 03/11/23 XR/XR hip LT min 2V(w/wo pelvis)*: Right hip pain;Left hip pain ([id number]) XR/XR knee RT 4V*: Right hip pain;Left [...] Izabela Spann M.D.03/11/2023 1:40 PM Dictation Location: [place] [address] Transcribed By: [facility] 03/11/23 1340 Dictated By: Izabela Spann MD 03/11/23 1330 Signed By: 03/11/23 1340 [facility] MM screening mammo BI w/CADo n 03-10-2023 MM screening mammo BI w/CAD [facility] [place] [address] Mammography Report Signed Patient: Nataliia Nelson MR#: [id number] : 1980 Acct:[id number] Age/Sex: 42 / F ADM Date: 03/10/23 Loc: [place] Room: Type: [facility] Attending Dr: Adelaide Zavala MD Copies to: Ai Pressley SALES SUPPORT ASSOCIATE-C Adelaide Zavala MD-NOMS Ordering Provider: Adelaide Zavala [...] Izabela Spann M.D.03/10/2023 12:58 PM Dictation Location: [facility] Transcribed By: [facility] 03/10/23 1258 Dictated By: Izabela Spann MD 03/10/23 1256 Signed By: 03/10/23 1258 Normal [facility] A1C with Estimated Average G mile 02-03-2023 Glucose [Mass/Vol] 120 mg/dL Normal [facility] Comment on above: Order Comment: Reaso n for Exam Obesity;Gastroesophageal reflux disease, unspecified whether Result Comment: PERF ORMED BY: [address] [place] [place] [address] PATHOLOGIST LOAN REVIEW ANALYST JIANLAN SUN M.D. Performed By: #### C MP, A1C WTH eA, CBC, [id number], TSH3 wRFLX, B12, LIPID #### [facility] [address] HbA1c (Bld) [Mass fraction] 5.8 % High 4.3-5.6 [facility] Comment on above: Order Comment: Reaso n for Exam Obesity;Gastroesophageal reflux disease, unspecified whether Result Comment: Incr eased risk for diabetes: 5.7 - 6.4 diabetes: >6.4 glycemic control for adults with diabetes: <7.0 Performed By: #### C MP, A1C WTH eA, CBC, [id number], TSH3 wRFLX, B12, LIPID #### [facility] [address] Alanine aminotransferase [En zymatic activity/volume] in Serum or PlasmaOrdered By: Katarzyna Carmichael on 02-03-2023 ALT [Catalytic activity/Vol] 8 U/L 7-52 [facility] Albumin [Mass/volume] in Ser um or Plasma by Bromocresol green (BCG) dye binding methoOrdered By: Katarzyna Carmichael on 02-03-2023 Albumin BCG dye [Mass/Vol] 4.5 g/dL 3.5-5.7 [facility] Alkaline phosphatase [Enzyma tic activity/volume] in Serum or PlasmaOrdered By: Katarzyna Carmichael on 02-03-2023 ALP [Catalytic activity/Vol] 55 U/L 34-104 [facility] Aspartate aminotransferase [ Enzymatic activity/volume] in Serum or PlasmaOrdered By: Katarzyna Carmichael on 02-03-2023 AST [Catalytic activity/Vol] 12 U/L 13-39 [facility] Basophils Auto (Bld) [#/Vol] Ordered By: Katarzyna Carmichael on 02-03-2023 Basophils (Bld) [#/Vol] 0.0 10*3/uL 0.0-0.2 [facility] Basophils/100 WBC Auto (Bld) Ordered By: Katarzyna Carmichael on 02-03-2023 Basophils/100 WBC (Bld) 0.5 % . [facility] Bilirubin.total [Mass/volume ] in Serum or PlasmaOrdered By: Katarzyna Carmichael on 02-03-2023 Bilirubin [Mass/Vol] 0.5 mg/dL 0.3-1.0 [facility] Calcium [Mass/volume] in Ser um or PlasmaOrdered By: Katarzyna Carmichael on 02-03-2023 Calcium [Mass/Vol] 9.5 mg/dL 8.6-10.3 [facility] Carbon dioxide, total [Moles /volume] in Serum or PlasmaOrdered By: Katarzyna Carmichael on 02-03-2023 CO2 [Moles/Vol] 29.9 mmol/L 21.0-31.0 [facility] Chloride [Moles/volume] in S richie or PlasmaOrdered By: Katarzyna Carmichael on 02-03-2023 Chloride [Moles/Vol] 105 mmol/L 98-107 [facility] Cholesterol [Mass/volume] in Serum or PlasmaOrdered By: Katarzyna Carmichael on 02-03-2023 Cholesterol [Mass/Vol] 172 mg/dL 140-[address] [facility] Comment on above: Chol less than 200 m g/dl low riskChol 201-239 mg/dl borderline riskChol 240 mg/dl and greater high risk Cholesterol in LDL Calc [Mas s/Vol]Ordered By: Katarzyna Carmichael on 02-03-2023 Cholesterol in LDL [Mass/Vol] 102 mg/dL 0-100 [facility] Comment on above: LDL ATP III CLASSIFI CATIONLDL less than 100 mg/dL OptimalLDL 100-129 mg/dL Near or above optimalLDL 130-159 mg/dL Borderline highLDL 160-189 mg/dL HighLDL greater than 189 mg/dL Very high Cholesterol in VLDL Calc [Ma ss/Vol]Ordered By: Katarzyna Carmichael on 02-03-2023 Cholesterol in VLDL [Mass/Vol] 21 mg/dL [facility] Complete Blood Count Auto Di ffon 02-03-2023 Basophils (Bld) [#/Vol] 0.0 10*3/uL Normal 0.0-0.2 [facility] Comment on above: Order Comment: Reaso n for Exam Obesity;Gastroesophageal reflux disease, unspecified whether Result Comment: PERF ORMED BY: [facility] [address] [place] [address] PATHOLOGIST LOAN REVIEW ANALYST AAMIR TORRES M.D. Performed By: #### C MP, A1C WTH eA, CBC, [id number], TSH3 wRFLX, B12, LIPID #### [facility] [address] Basophils/100 WBC (Bld) 0.5 % Normal . [facility] Comment on above: Order Comment: Reaso n for Exam Obesity;Gastroesophageal reflux disease, unspecified whether Performed By: #### C MP, A1C WTH eA, CBC, [id number], TSH3 wRFLX, B12, LIPID #### [facility] [address] [place] [address] [place] Eosinophils (Bld) [#/Vol] 0.1 10*3/uL Normal 0.0-0.45 [facility] Comment on above: Order Comment: Reaso n for Exam Obesity;Gastroesophageal reflux disease, unspecified whether Performed By: #### C MP, A1C WTH eA, CBC, [id number], TSH3 wRFLX, B12, LIPID #### [facility] [address] [place] [address] [place] Eosinophils/100 WBC (Bld) 2.4 % Normal . [facility] Comment on above: Order Comment: Reaso n for Exam Obesity;Gastroesophageal reflux disease, unspecified whether Performed By: #### C MP, A1C WTH eA, CBC, [id number], TSH3 wRFLX, B12, LIPID #### [facility] [address] [place] [address] Erythrocyte distribution width (RBC) [Ratio] 14.0 % Normal 11.9-15.3 [facility] Comment on above: Order Comment: Reaso n for Exam Obesity;Gastroesophageal reflux disease, unspecified whether Performed By: #### C MP, A1C WTH eA, CBC, [id number], TSH3 wRFLX, B12, LIPID #### [address] Hematocrit (Bld) [Volume fraction] 36.8 % Normal 34.0-46.4 [facility] Comment on above: Order Comment: Reaso n for Exam Obesity;Gastroesophageal reflux disease, unspecified whether Performed By: #### C MP, A1C WTH eA, CBC, [id number], TSH3 wRFLX, B12, LIPID #### [facility] [address] Hemoglobin (Bld) [Mass/Vol] 12.2 g/dL Normal 11.8-15.4 [facility] Comment on above: Order Comment: Reaso n for Exam Obesity;Gastroesophageal reflux disease, unspecified whether Performed By: #### C MP, A1C WTH eA, CBC, [id number], TSH3 wRFLX, B12, LIPID #### [facility] [address] [place] [address] Lymphocytes (Bld) [#/Vol] 1.9 10*3/uL Normal 1.00-4.8 [facility] Comment on above: Order Comment: Reaso n for Exam Obesity;Gastroesophageal reflux disease, unspecified whether Performed By: #### C MP, A1C WTH eA, CBC, [id number], TSH3 wRFLX, B12, LIPID #### [address] Lymphocytes/100 WBC (Bld) 32.5 % Normal . [facility] Comment on above: Order Comment: Reaso n for Exam Obesity;Gastroesophageal reflux disease, unspecified whether Performed By: #### C MP, A1C WTH eA, CBC, [id number], TSH3 wRFLX, B12, LIPID #### [facility] [address] [place] [address] [place] MCH (RBC) [Entitic mass] 28.6 pg Normal 24.7-34.3 [facility] Comment on above: Order Comment: Reaso n for Exam Obesity;Gastroesophageal reflux disease, unspecified whether Performed By: #### C MP, A1C WTH eA, CBC, [id number], TSH3 wRFLX, B12, LIPID #### [address] MCV (RBC) [Entitic vol] 86.2 fL Normal 80-100 [facility] Comment on above: Order Comment: Reaso n for Exam Obesity;Gastroesophageal reflux disease, unspecified whether Performed By: #### C MP, A1C WTH eA, CBC, [id number], TSH3 wRFLX, B12, LIPID #### [facility] [address] Mean Corpuscular HGB Conc 33.2 g/dL Normal 32.0-35.0 [facility] Comment on above: Order Comment: Reaso n for Exam Obesity;Gastroesophageal reflux disease, unspecified whether Performed By: #### C MP, A1C WTH eA, CBC, [id number], TSH3 wRFLX, B12, LIPID #### [facility] [address] [place] [address] [place] Monocytes (Bld) [#/Vol] 0.4 10*3/uL Normal 0.0-0.8 [facility] Comment on above: Order Comment: Reaso n for Exam Obesity;Gastroesophageal reflux disease, unspecified whether Performed By: #### C MP, A1C WTH eA, CBC, [id number], TSH3 wRFLX, B12, LIPID #### [facility] [address] [place] [address] [place] Monocytes/100 WBC (Bld) 6.9 % Normal . [facility] Comment on above: Order Comment: Reaso n for Exam Obesity;Gastroesophageal reflux disease, unspecified whether Performed By: #### C MP, A1C WTH eA, CBC, [id number], TSH3 wRFLX, B12, LIPID #### [facility] [address] [place] [address] [place] Neutrophils (Bld) [#/Vol] 3.3 10*3/uL Normal 1.8-7.7 [facility] Comment on above: Order Comment: Reaso n for Exam Obesity;Gastroesophageal reflux disease, unspecified whether Performed By: #### C MP, A1C WTH eA, CBC, [id number], TSH3 wRFLX, B12, LIPID #### [facility] [address] [place] [address] [place] Neutrophils/100 WBC (Bld) 57.7 % Normal . [facility] Comment on above: Order Comment: Reaso n for Exam Obesity;Gastroesophageal reflux disease, unspecified whether Performed By: #### C MP, A1C WTH eA, CBC, [id number], TSH3 wRFLX, B12, LIPID #### [facility] [address] NRBC% 0.1 /100{WBC} Normal 0-0.5 [facility] Comment on above: Order Comment: Reaso n for Exam Obesity;Gastroesophageal reflux disease, unspecified whether Performed By: #### C MP, A1C WTH eA, CBC, [id number], TSH3 wRFLX, B12, LIPID #### [facility] [address] Platelet mean volume (Bld) [Entitic vol] 8.9 fL Normal 6.3-10.7 [facility] Comment on above: Order Comment: Reaso n for Exam Obesity;Gastroesophageal reflux disease, unspecified whether Performed By: #### C MP, A1C WTH eA, CBC, [id number], TSH3 wRFLX, B12, LIPID #### [facility] [address] Platelets (Bld) [#/Vol] 377 10*3/uL Normal 150-450 [facility] Comment on above: Order Comment: Reaso n for Exam Obesity;Gastroesophageal reflux disease, unspecified whether Performed By: #### C MP, A1C WTH eA, CBC, [id number], TSH3 wRFLX, B12, LIPID #### [facility] [address] RBC (Bld) [#/Vol] 4.26 10*6/uL Normal 3.60-5.00 [facility] Comment on above: Order Comment: Reaso n for Exam Obesity;Gastroesophageal reflux disease, unspecified whether Performed By: #### C MP, A1C WTH eA, CBC, [id number], TSH3 wRFLX, B12, LIPID #### [address] WBC (Bld) [#/Vol] 5.8 10*3/uL Normal 3.8-11.6 [facility] Comment on above: Order Comment: Reaso n for Exam Obesity;Gastroesophageal reflux disease, unspecified whether Performed By: #### C MP, A1C WTH eA, CBC, [id number], TSH3 wRFLX, B12, LIPID #### [facility] [address] [place] [id number] [facility] Comprehensive Metabolic Pane antoinette 02-03-2023 Albumin [Mass/Vol] 4.5 g/dL Normal 3.5-5.7 [facility] Comment on above: Order Comment: Reaso n for Exam Obesity;Gastroesophageal reflux disease, unspecified whether Performed By: #### C MP, A1C WTH eA, CBC, [id number], TSH3 wRFLX, B12, LIPID #### [facility] [address] Albumin/Globulin [Mass ratio] 2.4 {ratio} Normal [facility] Comment on above: Order Comment: Reaso n for Exam Obesity;Gastroesophageal reflux disease, unspecified whether Performed By: #### C MP, A1C WTH eA, CBC, [id number], TSH3 wRFLX, B12, LIPID #### [facility] [address] [place] [id number] [facility] ALP [Catalytic activity/Vol] 55 U/L Normal 34-104 [facility] Comment on above: Order Comment: Reaso n for Exam Obesity;Gastroesophageal reflux disease, unspecified whether Performed By: #### C MP, A1C WTH eA, CBC, [id number], TSH3 wRFLX, B12, LIPID #### [facility] [address] [place] [address] [facility] ALT [Catalytic activity/Vol] 8 U/L Normal 7-52 [facility] Comment on above: Order Comment: Reaso n for Exam Obesity;Gastroesophageal reflux disease, unspecified whether Performed By: #### C MP, A1C WTH eA, CBC, [id number], TSH3 wRFLX, B12, LIPID #### [facility] [address] [place] [id number] [facility] Anion gap [Moles/Vol] 10.8 mmol/L Normal 6.0-15.[address] [facility] Comment on above: Order Comment: Reaso n for Exam Obesity;Gastroesophageal reflux disease, unspecified whether Performed By: #### C MP, A1C WTH eA, CBC, [id number], TSH3 wRFLX, B12, LIPID #### [facility] [address] AST [Catalytic activity/Vol] 12 U/L Low 13-39 [facility] Comment on above: Order Comment: Reaso n for Exam Obesity;Gastroesophageal reflux disease, unspecified whether Performed By: #### C MP, A1C WTH eA, CBC, [id number], TSH3 wRFLX, B12, LIPID #### [facility] [address] Bilirubin [Mass/Vol] 0.5 mg/dL Normal 0.3-1.0 [facility] Comment on above: Order Comment: Reaso n for Exam Obesity;Gastroesophageal reflux disease, unspecified whether Performed By: #### C MP, A1C WTH eA, CBC, [id number], TSH3 wRFLX, B12, LIPID #### [facility] [address] Calcium [Mass/Vol] 9.5 mg/dL Normal 8.6-10.3 [facility] Comment on above: Order Comment: Reaso n for Exam Obesity;Gastroesophageal reflux disease, unspecified whether Performed By: #### C MP, A1C WTH eA, CBC, [id number], TSH3 wRFLX, B12, LIPID #### [facility] [address] Chloride [Moles/Vol] 105 mmol/L Normal 98-107 [facility] Comment on above: Order Comment: Reaso n for Exam Obesity;Gastroesophageal reflux disease, unspecified whether Performed By: #### C MP, A1C WTH eA, CBC, [id number], TSH3 wRFLX, B12, LIPID #### [facility] [address] [place] [address] [place] CO2 [Moles/Vol] 29.9 mmol/L Normal 21.0-31.0 [facility] Comment on above: Order Comment: Reaso n for Exam Obesity;Gastroesophageal reflux disease, unspecified whether Performed By: #### C MP, A1C WTH eA, CBC, [id number], TSH3 wRFLX, B12, LIPID #### [facility] [address] Creatinine [Mass/Vol] 0.73 mg/dL Normal 0.60-1.20 [facility] Comment on above: Order Comment: Reaso n for Exam Obesity;Gastroesophageal reflux disease, unspecified whether Performed By: #### C MP, A1C WTH eA, CBC, [id number], TSH3 wRFLX, B12, LIPID #### [facility] [address] GFR/1.73 sq M.predicted MDRD (S/P/Bld) [Vol rate/Area] mL/min/{1.73_m2} Normal [facility] Comment on above: Order Comment: Reaso n for Exam Obesity;Gastroesophageal reflux disease, unspecified whether Performed By: #### C MP, A1C WTH eA, CBC, [id number], TSH3 wRFLX, B12, LIPID #### [facility] [address] Globulin (S) [Mass/Vol] 1.9 g/dL Normal [facility] Comment on above: Order Comment: Reaso n for Exam Obesity;Gastroesophageal reflux disease, unspecified whether Performed By: #### C MP, A1C WTH eA, CBC, [id number], TSH3 wRFLX, B12, LIPID #### [facility] [address] Glucose [Mass/Vol] 83 mg/dL Normal 74-109 [facility] Comment on above: Order Comment: Reaso n for Exam Obesity;Gastroesophageal reflux disease, unspecified whether Result Comment: [facility] Glucose Reference Range is dependent on time and content of last meal. Glucose of more than 200 mg/dL in a nonstressed, ambulatory subject supports the diagnosis of Diabetes Mellitus. ADA recommended reference range Performed By: #### C MP, A1C WTH eA, CBC, [id number], TSH3 wRFLX, B12, LIPID #### [facility] [address] [place] [id number] [facility] Potassium [Moles/Vol] 4.7 mmol/L Normal 3.5-5.1 [facility] Comment on above: Order Comment: Reaso n for Exam Obesity;Gastroesophageal reflux disease, unspecified whether Performed By: #### C MP, A1C WTH eA, CBC, [id number], TSH3 wRFLX, B12, LIPID #### [facility] [address] [place] [id number] [place] Protein [Mass/Vol] 6.4 g/dL Normal 6.4-8.9 [facility] Comment on above: Order Comment: Reaso n for Exam Obesity;Gastroesophageal reflux disease, unspecified whether Performed By: #### C MP, A1C WTH eA, CBC, [id number], TSH3 wRFLX, B12, LIPID #### [facility] [address] [place] [id number] [place] Sodium [Moles/Vol] 141 mmol/L Normal 136-145 [facility] Comment on above: Order Comment: Reaso n for Exam Obesity;Gastroesophageal reflux disease, unspecified whether Performed By: #### C MP, A1C WTH eA, CBC, [id number], TSH3 wRFLX, B12, LIPID #### [facility] [address] [place] [address] [place] Urea nitrogen [Mass/Vol] 19 mg/dL Normal 7-25 [facility] Comment on above: Order Comment: Reaso n for Exam Obesity;Gastroesophageal reflux disease, unspecified whether Performed By: #### C MP, A1C WTH eA, CBC, [id number], TSH3 wRFLX, B12, LIPID #### [facility] [address] [place] [address] [place] Creatinine [Mass/volume] in Serum or PlasmaOrdered By: Katarzyna Carmichael on 02-03-2023 Creatinine [Mass/Vol] 0.73 mg/dL 0.60-1.20 [facility] Eosinophils Auto (Bld) [#/Vo l]Ordered By: Katarzyna Carmichael on 02-03-2023 Eosinophils (Bld) [#/Vol] 0.1 10*3/uL 0.0-0.45 [facility] Eosinophils/100 WBC Auto (Bl d)Ordered By: Katarzyna Carmichael on 02-03-2023 Eosinophils/100 WBC (Bld) 2.4 % . [facility] Erythrocyte distribution wid th Auto (RBC) [Ratio]Ordered By: Katarzyna Carmichael on 02-03-2023 Erythrocyte distribution width (RBC) [Ratio] 14.0 % 11.9-15.3 [facility] Globulin Calc (S) [Mass/Vol] Ordered By: Katarzyna Carmichael on 02-03-2023 Globulin (S) [Mass/Vol] 1.9 g/dL [facility] Glucose [Mass/volume] in Ser um or PlasmaOrdered By: Katarzyna Carmichael on 02-03-2023 Glucose [Mass/Vol] 83 mg/dL 74-109 [facility] Comment on above: ADA recommended refe [...] from glycated hemoglobin (Bld) [Mass/Vol] 120 mg/dL [facility] Hematocrit Auto (Bld) [Volum e fraction]Ordered By: Katarzyna Carmichael on 02-03-2023 Hematocrit (Bld) [Volume fraction] 36.8 % 34.0-46.4 [facility] Hemoglobin A1c percentageOrd ered By: Katarzyna Carmichael on 02-03-2023 HbA1c (Bld) [Mass fraction] 5.8 % 4.3-5.6 [facility] Comment on above: Increased risk for d iabetes: 5.7 - 6.4diabetes: >6.4glycemic control for adults with diabetes: <7.0 Hemoglobin [Mass/volume] in BloodOrdered By: Katarzyna Carmichael on 02-03-2023 Hemoglobin (Bld) [Mass/Vol] 12.2 g/dL 11.8-15.4 [facility] Laboratory - Chemistry and C hemistry - challengeOrdered By: Katarzyna Carmichael on 02-03-2023 GFR/1.73 sq M.predicted MDRD (S/P/Bld) [Vol rate/Area] mL/min/{1.73_m2} [facility] Leukocytes [#/volume] correc omar for nucleated erythrocytes in Blood by Automated counOrdered By: Katarzynaher Lariossarah beth on 02-03-2023 WBC corrected for nucl RBC Auto (Bld) [#/Vol] 5.8 10*3/uL 3.8-11.6 [facility] Lipid Panelon 02-03-2023 Cholesterol [Mass/Vol] 172 mg/dL Normal 140-[address] [facility] Comment on above: Order Comment: Reaso n for Exam Obesity;Gastroesophageal reflux disease, unspecified whether Result Comment: Chol less than 200 mg/dl low risk Chol 201-239 mg/dl borderline risk Chol 240 mg/dl and greater high risk Performed By: #### C MP, A1C WTH eA, CBC, [id number], TSH3 wRFLX, B12, LIPID #### [facility] [address] [place] [id number] [place] Cholesterol in HDL [Mass/Vol] 49 mg/dL Normal 35-85 [facility] Comment on above: Order Comment: Reaso n for Exam Obesity;Gastroesophageal reflux disease, unspecified whether Result Comment: HDL CHOL ATP-III CLASSIFICATION Cardiovascular Risk HDL > or equal to 60 mg/dL LOW HDL < 40 mg/dL HIGH Performed By: #### C MP, A1C WTH eA, CBC, [id number], TSH3 wRFLX, B12, LIPID #### [facility] [address] [place] [address] [place] Cholesterol.total/Catrina sterol in HDL [Mass ratio] 3.5 {ratio} Normal <5.0 [facility] Comment on above: Order Comment: Reaso n for Exam Obesity;Gastroesophageal reflux disease, unspecified whether Performed By: #### C MP, A1C WTH eA, CBC, [id number], TSH3 wRFLX, B12, LIPID #### [facility] [address] [place] [address] [place] LDL Cholesterol,Calculated 102 mg/dL High 0-100 [facility] Comment on above: Order Comment: Reaso n for Exam Obesity;Gastroesophageal reflux disease, unspecified whether Result Comment: LDL ATP III CLASSIFICATION LDL less than 100 mg/dL Optimal LDL 100-129 mg/dL Near or above optimal LDL 130-159 mg/dL Borderline high LDL 160-189 mg/dL High LDL greater than 189 mg/dL Very high Performed By: #### C MP, A1C WTH eA, CBC, [id number], TSH3 wRFLX, B12, LIPID #### [facility] [address] Triglyceride w/Reflex 106 mg/dL Normal 0-149 [facility] Comment on above: Order Comment: Reaso n [...] #### C MP, A1C WTH eA, CBC, [id number], TSH3 wRFLX, B12, LIPID #### [facility] [address] VLDL CHOLESTEROL 21 mg/dL Normal [facility] Comment on above: Order Comment: Reaso n for Exam Obesity;Gastroesophageal reflux disease, unspecified whether Performed By: #### C MP, A1C WTH eA, CBC, [id number], TSH3 wRFLX, B12, LIPID #### [facility] [address] Lymphocytes Auto (Bld) [#/Vo l]Ordered By: Katarzyna Carmichael on 02-03-2023 Lymphocytes (Bld) [#/Vol] 1.9 10*3/uL 1.00-4.8 [facility] Lymphocytes/100 WBC Auto (Bl d)Ordered By: Katarzyna Carmichael on 02-03-2023 Lymphocytes/100 WBC (Bld) 32.5 % . [facility] MCH Auto (RBC) [Entitic mass ]Ordered By: Katarzyna Carmichael on 02-03-2023 MCH (RBC) [Entitic mass] 28.6 pg 24.7-34.3 [facility] MCHC Auto (RBC) [Mass/Vol]Or dered By: Katarzyna Carmichael on 02-03-2023 MCHC (RBC) [Mass/Vol] 33.2 g/dL 32.0-35.0 [facility] MCV Auto (RBC) [Entitic vol] Ordered By: Katarzyna Carmichael on 02-03-2023 MCV (RBC) [Entitic vol] 86.2 fL 80-100 [facility] Monocytes Auto (Bld) [#/Vol] Ordered By: Katarzyna Carmichael on 02-03-2023 Monocytes (Bld) [#/Vol] 0.4 10*3/uL 0.0-0.8 [facility] Monocytes/100 WBC Auto (Bld) Ordered By: Katarzyna Carmichael on 02-03-2023 Monocytes/100 WBC (Bld) 6.9 % . [facility] Neutrophils Auto (Bld) [#/Vo l]Ordered By: Katarzyna Carmichael on 02-03-2023 Neutrophils (Bld) [#/Vol] 3.3 10*3/uL 1.8-7.7 [facility] Neutrophils/100 WBC Auto (Bl d)Ordered By: Katarzyna Carmichael on 02-03-2023 Neutrophils/100 WBC (Bld) 57.7 % . [facility] No Panel InformationOrdered By: Katarzyna Carmichael on 02-03-2023 Pharmacy Creatinine Clearance (Chem N/A [facility] Nucleated erythrocytes [Pres ence] in Blood by Automated countOrdered By: Katarzyna Carmichael on 02-03-2023 Nucleated RBC Auto Ql (Bld) 0.1 /100{WBC} 0-0.5 [facility] Platelet mean volume Auto (B ld) [Entitic vol]Ordered By: Katarzyna Carmichael on 02-03-2023 Platelet mean volume (Bld) [Entitic vol] 8.9 fL 6.3-10.7 [facility] Platelets Auto (Bld) [#/Vol] Ordered By: Katarzyna Carmichael on 02-03-2023 Platelets (Bld) [#/Vol] 377 10*3/uL 150-450 [facility] Potassium [Moles/volume] in Serum or PlasmaOrdered By: Katarzyna Carmichael on 02-03-2023 Potassium [Moles/Vol] 4.7 mmol/L 3.5-5.1 [facility] [facility] Protein [Mass/volume] in Ser um or PlasmaOrdered By: Katarzyna Carmichael on 02-03-2023 Protein [Mass/Vol] 6.4 g/dL 6.4-8.9 [facility] RBC Auto (Bld) [#/Vol]Ordere d By: Katarzyna Carmichael on 02-03-2023 RBC (Bld) [#/Vol] 4.26 10*6/uL 3.60-5.00 [facility] Serum or plasma albumin/glob ulin mass ratioOrdered By: Katarzyna Carmichael on 02-03-2023 Albumin/Globulin [Mass ratio] 2.4 {ratio} [facility] Serum or plasma anion gap de terminationOrdered By: Katarzyna Carmichael on 02-03-2023 Anion gap [Moles/Vol] 10.8 mmol/L 6.0-15.[address] [facility] Serum or plasma high density lipoprotein (HDL) cholesterol measurementOrdered By: Katarzyna Carmichael on 02-03-2023 Cholesterol in HDL [Mass/Vol] 49 mg/dL 35-85 [facility] Comment on above: HDL CHOL ATP-III CLA SSIFICATION Cardiovascular RiskHDL > or equal to 60 mg/dL LOWHDL < 40 mg/dL HIGH Serum or plasma total choles terol/high density lipoprotein (HDL) cholesterol mass ratOrdered By: Katarzyna Carmichael on 02-03-2023 Cholesterol.total/Catrina sterol in HDL [Mass ratio] 3.5 {ratio} <5.0 [facility] Sodium [Moles/volume] in Ser um or PlasmaOrdered By: Katarzyna Carmichael on 02-03-2023 Sodium [Moles/Vol] 141 mmol/L 136-145 [facility] Thyroid Stim Hormone w/Rflxo n 02-03-2023 Thyroid Stim Hormone w/Rflx 2.13 u[iU]/mL Normal 0.45-5.33 [facility] Comment on above: Order Comment: Reaso n for Exam Obesity;Gastroesophageal reflux disease, unspecified whether Performed By: #### C MP, A1C WTH eA, CBC, [id number], TSH3 wRFLX, B12, LIPID #### [facility] [address] Thyrotropin [Units/volume] i n Serum or PlasmaOrdered By: Katarzyna Carmichael on 02-03-2023 TSH Qn 2.13 m[IU]/L 0.45-5.33 [facility] Triglyceride [Mass/volume] i n Serum or PlasmaOrdered By: Katarzyna Carmichael on 02-03-2023 Triglyceride [Mass/Vol] 106 mg/dL 0-149 [facility] Comment on above: TRIG ATP III CLASSIF ICATIONTRIG less than 150 mg/dL NormalTRIG 150-199 mg/dL Borderline highTRIG 200-500 mg/dL High TRIG greater than 500 mg/dL Very highStandard traceable to the Center for Disease Conrtrol and Prevention (CDC) test method. Urea nitrogen [Mass/volume] in Serum or PlasmaOrdered By: Katarzyna Carmichael on 02-03-2023 Urea nitrogen [Mass/Vol] 19 mg/dL 7-25 [facility] Vitamin B12on 02-03-2023 Cobalamin (Vitamin B12) [Mass/Vol] 382 pg/mL Normal 180-914 [facility] Comment on above: Order Comment: Reaso n for Exam Obesity;Gastroesophageal reflux disease, unspecified whether Performed By: #### C MP, A1C WTH eA, CBC, [id number], TSH3 wRFLX, B12, LIPID #### [facility] [address] Vitamin B12 ser/plasOrdered By: Katarzyna Carmichael on 02-03-2023 Cobalamin (Vitamin B12) [Mass/Vol] 382 pg/mL 180-914 [facility] Vitamin D 25 Hydroxy Totalon 02-03-2023 Vitamin D 25 Hydroxy Total 17.0 ng/mL Low 30-100 [facility] Comment on above: Order Comment: Reaso n for Exam Obesity;Gastroesophageal reflux disease, unspecified whether Result Comment: MAMIE MIN D STATUS 25(OH)VITAMIN D RANGE (ng/mL) Deficient <20 Insufficient 20 to <30 Sufficient 30 to 100 Reference: Adalid MF,Kelsey NC, Leah WOOD, et al. Evaluation,treatment, and prevention of vitamin D deficiency; an Endocrine Society clinical practice guideline. JCEM. 2010; 96(7):1911-30. PERFORMED BY: [facility] [address] [facility] [place] [address] PATHOLOGIST LOAN REVIEW ANALYST AAMIR TORRES M.D. Performed By: #### C MP, A1C WTH eA, CBC, [id number], TSH3 wRFLX, B12, LIPID #### [facility] [address] Vitamin D+Metabolites [Mass/ volume] in Serum or PlasmaOrdered By: Katarzyna Lariossarah beth on 02-03-2023 Vitamin D+Metabolites [Mass/Vol] 17.0 ng/mL 30-100 [facility] Comment on above: VITAMIN D STATUS 25( [place])VITAMIN D RANGE (ng/mL) Deficient <20 Insufficient 20 to <30Sufficient 30 to 100Reference: Adalid MF,Kelsey ROBERTSON, Leah WOOD, et al. Evaluation,treatment, and prevention of vitamin D deficiency; an Endocrine Society clinical practice guideline. JCEM. 2010; 96(7):1911-30. WBC Auto (Bld) [#/Vol]Ordere d By: Katarzyna Carmichael on 02-03-2023 WBC (Bld) [#/Vol] 5.8 10*3/uL 3.8-11.6 [facility] MRI HIP LT WO CONon 09-20-20 MRI HIP LT WO CON Begin Addendum [...] space secondary to cartilage loss with suspected [id number]-tz-[id number] contact. Mild edema within the femoral head [...] cartilage along the weightbearing surfaces resulting in [id number] contact. Normal [facility] CBC AUTO DIFFon 09-16-2022 BASO # 0.0 103/ul Normal 0.0-0.1 [facility] Comment on above: Performed By: #### C BC #### [facility] [address] [place] [address] Dr. Donnie Gray Basophils/100 WBC (Bld) 0.1 % Critically low 0.2-2.[address] [facility] Comment on above: Performed By: #### C BC #### [facility] [address] [place] [address] Dr. Donnie Gray EO # 0.0 103/ul Normal 0.0-0.7 [facility] Comment on above: Performed By: #### C BC #### [facility] [address] [place] [address] Dr. Donnie Gray Eosinophils/100 WBC (Bld) 0.0 % Critically low 0.9-7.[address] [facility] Comment on above: Performed By: #### C BC #### [facility] [address] [place] [address] Dr. Donnie Gray Erythrocyte distribution width (RBC) [Ratio] 13.4 % Normal 11.0-15.0 [facility] Comment on above: Performed By: #### C BC #### [facility] [address] [place] [address] Dr. Donnie Gray Hematocrit (Bld) [Volume fraction] 36.0 % Normal 36.0-48.0 [facility] Comment on above: Performed By: #### C BC #### [facility] [address] [place] [address] Dr. Donnie Gray Hemoglobin (Bld) [Mass/Vol] 11.8 g/dL Critically low 12.0-16.0 [facility] Comment on above: Performed By: #### C BC #### [facility] [address] [address] [address] Donnie Gray IG # 0.04 10e3/ul Critically high 0.00-0.03 [facility] Comment on above: Performed By: #### C BC #### [facility] [address] [place] [address] Dr. Donnie Gray IG % 0.3 % Normal 0.0-0.[address] [facility] Comment on above: Performed By: #### C BC #### [facility] [address] [place] [address] Dr. Donnie Gray LYMPH # 1.0 103/ul Critically low 1.2-3.8 [facility] Comment on above: Performed By: #### C BC #### [facility] [address] [place] [address] Dr. Donnie Gray Lymphocytes/100 WBC (Bld) 7.6 % Critically low 20.5-60.[address] [facility] Comment on above: Performed By: #### C BC #### [facility] [address] [place] [address] Dr. Donnie Gray MANUAL DIFF REQ NO Normal [facility] Comment on above: Performed By: #### C BC #### [facility] [address] [place] [address] Dr. Donnie Gray MCH (RBC) [Entitic mass] 28.6 pg Normal 26.7-34.[address] [facility] Comment on above: Performed By: #### C BC #### [facility] [address] [place] [address] Dr. Donnie Gray MCHC (RBC) [Mass/Vol] 32.8 g/dL Normal 29.9-35.[address] [facility] Comment on above: Performed By: #### C BC #### [facility] [address] [place] [address] Dr. Donnie Gray MCV (RBC) [Entitic vol] 87.4 fL Normal 81.0-99.0 [facility] Comment on above: Performed By: #### C BC #### [facility] [address] [address] [address] Donnie Gray MONO # 0.8 103/ul Normal 0.3-0.[address] [facility] Comment on above: Performed By: #### C BC #### [facility] [address] [address] [address] Donnie Gray Monocytes/100 WBC (Bld) 6.2 % Normal 1.7-12.0 [facility] Comment on above: Performed By: #### C BC #### [facility] [address] [address] [address] Donnie Gray NEUT # 11.0 103/ul Critically high 1.4-6.5 [facility] Comment on above: Performed By: #### C BC #### [facility] [address] [place] [address] Dr. Donnie Gray Neutrophils/100 WBC (Bld) 85.8 % Critically high 43.0-75.[address] [facility] Comment on above: Performed By: #### C BC #### [facility] [address] [place] [address] Dr. Donnie Gray Platelet mean volume (Bld) [Entitic vol] 10.0 fL Normal 9.5-13.[address] [facility] Comment on above: Performed By: #### C BC #### [facility] [address] [place] [address] Dr. Donnie Gray PLT 398 103/ul Normal 150-450 [facility] Comment on above: Performed By: #### C BC #### [facility] [address] [place] [address] Dr. Donnie Gray RBC 4.12 106/ul Critically low 4.20-5.40 [facility] Comment on above: Performed By: #### C BC #### [facility] [address] [place] [address] Dr. Donnie Gray WBC 12.8 103/ul Critically high 4.0-11.0 [facility] Comment on above: Performed By: #### C BC #### [facility] [address] [address] [address] Donnie Gray CRPon 09-16-2022 CRP [Mass/Vol] mg/L Normal <=1.0 [facility] Comment on above: Performed By: #### C RP, URIC #### [facility] [address] [place] [address] Dr. Donnie Gray SED RATE WESTERGRENon 2021 SED RATE 18 mm/hr Normal <=20 [facility] Comment on above: Performed By: #### S EDR #### [facility] [address] [place] [address] Dr. Donnie Gray URIC ACID SERUMon 09-16-2022 Urate [Mass/Vol] 3.1 mg/dL Normal 2.6-6.0 [facility] Comment on above: Performed By: #### C RP, URIC #### [facility] [address] [place] [address] Dr. Donnie Gray XR ARTHRO HIP LT [...] by: CONY ROSARIO Date: 2022-09-15 12:14 Normal [facility] COVID Quick Testingon 2021 Result Positive [facility] Other COVID Quick Testingon 2021 Result Negative [facility] Other Vital Signs Date Time Vital Sign Value Performing Clinician Facility 12-30-2023 09:00-0500 Body height 163.83 cm Billy Darius Other [facility] Other 12-30-2023 09:00-0500 Diastolic blood pressure 76 mm[Hg] Billy Mccoy Other [facility] Other 12-30-2023 09:00-0500 SaO2% (BldA) [Mass fraction] 97 % Billy Darius Other [facility] Other 12-30-2023 09:00-0500 Systolic blood pressure 118 mm[Hg] Billy Mccoy Other [facility] Other 11-30-2023 11:15-0500 Body height 163.83 cm Eleanor Singleton Other [facility] Other 11-30-2023 11:15-0500 Body mass index (BMI) [Ratio] 40.22 kg/m2 Eleanor Singleton Other [facility] Other 11-30-2023 11:15-0500 Body weight 107.96 kg Eleanor Singleton Other [facility] Other 11-30-2023 11:15-0500 Diastolic blood pressure 72 mm[Hg] Eleanor Singleton Other [facility] Other 11-30-2023 11:15-0500 Respiratory rate 18 /min Eleanor Singleton Other [facility] Other 11-30-2023 11:15-0500 SaO2% (BldA) [Mass fraction] 97 % Eleanor Singleton Other [facility] Other 11-30-2023 11:15-0500 Systolic blood pressure 111 mm[Hg] Eleanor Singleton Other [facility] Other 11-01-2023 14:15-0500 Body height 163.83 cm Eleanor Singleton Other [facility] Other 11-01-2023 14:15-0500 Body mass index (BMI) [Ratio] 40.89 kg/m2 Eleanor Singleton Other [facility] Other 11-01-2023 14:15-0500 Body weight 109.77 kg Eleanor Singleton Other [facility] Other 11-01-2023 14:15-0500 Diastolic blood pressure 70 mm[Hg] Eleanor Singleton Other [facility] Other 11-01-2023 14:15-0500 SaO2% (BldA) [Mass fraction] 97 % Eleanor Singleton Other [facility] Other 11-01-2023 14:15-0500 Systolic blood pressure 110 mm[Hg] Eleanor Singleton Other [facility] Other 09-06-2023 13:45-0400 Body height 163.83 cm Raman Laura Other [facility] Other 09-06-2023 13:45-0400 Body mass index (BMI) [Ratio] 42.25 kg/m2 Raman Laura Other [facility] Other 09-06-2023 13:45-0400 Body weight 113.4 kg Raman Valentín Other [facility] Other 09-06-2023 13:45-0400 Diastolic blood pressure 78 mm[Hg] Raman Laura Other [facility] Other 09-06-2023 13:45-0400 SaO2% (BldA) [Mass fraction] 99 % Raman Laura Other [facility] Other 09-06-2023 13:45-0400 Systolic blood pressure 118 mm[Hg] Raman Valentín Other [facility] Other 09-01-2023 09:30-0400 Body height 163.83 cm Eleanor Singleton Other [facility] Other 09-01-2023 09:30-0400 Body mass index (BMI) [Ratio] 42.62 kg/m2 Eleanor Singleton Other [facility] Other 09-01-2023 09:30-0400 Body weight 114.4 kg Eleanor Singleton Other [facility] Other 09-01-2023 09:30-0400 Diastolic blood pressure 90 mm[Hg] Eleanor Singleton Other [facility] Other 09-01-2023 09:30-0400 SaO2% (BldA) [Mass fraction] 96 % Eleanor Singleton Other [facility] Other 09-01-2023 09:30-0400 Systolic blood pressure 138 mm[Hg] Eleanor Singleton Other [facility] Other 08-12-2023 12:35-0400 Body height 162.6 cm Raya Oliva MD Work Phone: [facility] 08-12-2023 12:35-0400 Body weight 115.72 kg Raya Oliva MD Work Phone: [facility] 08-02-2023 15:15-0400 Body height 163.83 cm Eleanor Singleton Other [facility] Other 08-02-2023 15:15-0400 Diastolic blood pressure 80 mm[Hg] Eleanor Singleton Other [facility] Other 08-02-2023 15:15-0400 SaO2% (BldA) [Mass fraction] 98 % Eleanor Singleton Other [facility] Other 08-02-2023 15:15-0400 Systolic blood pressure 120 mm[Hg] Eleanor Singleton Other [facility] Other 07-20-2023 14:45-0400 Body height 163.83 cm Raman Laura Other [facility] Other 07-20-2023 14:45-0400 Body mass index (BMI) [Ratio] 43.26 kg/m2 Raman Laura Other [facility] Other 07-20-2023 14:45-0400 Body weight 116.12 kg Raman Laura Other [facility] Other 07-20-2023 14:45-0400 Diastolic blood pressure 81 mm[Hg] Raman Laura Other [facility] Other 07-20-2023 14:45-0400 SaO2% (BldA) [Mass fraction] 99 % Raman Laura Other [facility] Other 07-20-2023 14:45-0400 Systolic blood pressure 117 mm[Hg] Raman Laura Other [facility] Other 06-30-2023 09:00-0400 Body height 163.83 cm Eleanor Singleton Other [facility] Other 06-30-2023 09:00-0400 Body mass index (BMI) [Ratio] 43.43 kg/m2 Eleanor Singleton Other [facility] Other 06-30-2023 09:00-0400 Body weight 116.58 kg Eleanor Singleton Other [facility] Other 06-30-2023 09:00-0400 Diastolic blood pressure 90 mm[Hg] Eleanor Singleton Other [facility] Other 06-30-2023 09:00-0400 Systolic blood pressure 138 mm[Hg] Eleanor Singleton Other [facility] Other 06-10-2023 09:45-0400 Body height 163.83 cm Sandra Fitt Other [facility] Other 06-10-2023 09:45-0400 Body mass index (BMI) [Ratio] 43.09 kg/m2 Sandra Fitt Other [facility] Other 06-10-2023 09:45-0400 Body weight 115.67 kg Sandra Fitt Other [facility] Other 06-02-2023 11:30-0400 Body height 163.83 cm Eleanor Singleton Other [facility] Other 06-02-2023 11:30-0400 Body mass index (BMI) [Ratio] 42.55 kg/m2 Eleanor Singleton Other [facility] Other 06-02-2023 11:30-0400 Body weight 114.22 kg Eleanor Singleton Other [facility] Other 06-02-2023 11:30-0400 Diastolic blood pressure 70 mm[Hg] Eleanor Singleton Other [facility] Other 06-02-2023 11:30-0400 SaO2% (BldA) [Mass fraction] 98 % Eleanor Singleton Other [facility] Other 06-02-2023 11:30-0400 Systolic blood pressure 110 mm[Hg] Eleanor Singleton Other [facility] Other 05-09-2023 12:45-0400 Body height 163.83 cm Katarzyna Missler Other [facility] Other 05-09-2023 12:45-0400 Body mass index (BMI) [Ratio] 42.09 kg/m2 Katarzyna Missler Other [facility] Other 05-09-2023 12:45-0400 Body weight 112.99 kg Katarzyna Missler Other [facility] Other 05-09-2023 12:45-0400 Diastolic blood pressure 79 mm[Hg] Katarzyna Missler Other [facility] Other 05-09-2023 12:45-0400 Respiratory rate 18 /min Katarzyna Missler Other [facility] Other 05-09-2023 12:45-0400 SaO2% (BldA) [Mass fraction] 97 % Katarzyna Carmichael Other [facility] Other 05-09-2023 12:45-0400 Systolic blood pressure 111 mm[Hg] Katarzyna Carmichael Other [facility] Other 05-06-2023 09:45-0400 Body height 163.83 cm Sandra Fitt Other [facility] Other 05-06-2023 09:45-0400 Body mass index (BMI) [Ratio] 42.16 kg/m2 Sandra Fitt Other [facility] Other 05-06-2023 09:45-0400 Body weight 113.17 kg Sandra Fitt Other [facility] Other 03-22-2023 15:30-0400 Body height 163.83 cm Eleanor Singleton Other [facility] Other 03-22-2023 15:30-0400 Body mass index (BMI) [Ratio] 42.68 kg/m2 Eleanor Singleton Other [facility] Other 03-22-2023 15:30-0400 Body weight 114.58 kg Eleanor Singleton Other [facility] Other 03-22-2023 15:30-0400 Diastolic blood pressure 82 mm[Hg] Eleanor Singleton Other [facility] Other 03-22-2023 15:30-0400 SaO2% (BldA) [Mass fraction] 98 % Eleanor Singleton Other [facility] Other 03-22-2023 15:30-0400 Systolic blood pressure 130 mm[Hg] Eleanor Singleton Other [facility] Other 03-17-2023 14:45-0400 Body height 163.83 cm Sandra Fitt Other [facility] Other 03-17-2023 14:45-0400 Body mass index (BMI) [Ratio] 43.28 kg/m2 Sandra Fitt Other [facility] Other 03-17-2023 14:45-0400 Body weight 116.17 kg Sandra Fitt Other [facility] Other 03-09-2023 11:30-0400 Body height 163.83 cm Katarzynaher Lariosler Other [facility] Other 03-09-2023 11:30-0400 Body mass index (BMI) [Ratio] 44.21 kg/m2 Katarzyna Missler Other [facility] Other 03-09-2023 11:30-0400 Body weight 118.66 kg Katarzyna Missler Other [facility] Other 03-09-2023 11:30-0400 Diastolic blood pressure 90 mm[Hg] Katarzyna Missler Other [facility] Other 03-09-2023 11:30-0400 Respiratory rate 18 /min Katarzyna Missler Other [facility] Other 03-09-2023 11:30-0400 SaO2% (BldA) [Mass fraction] 98 % Katarzyna Carmichael Other [facility] Other 03-09-2023 11:30-0400 Systolic blood pressure 127 mm[Hg] Katrazyna Carmichael Other [facility] Other 02-22-2023 14:15-0400 Body height 163.83 cm Eleanor Singleton Other [facility] Other 02-22-2023 14:15-0400 Body mass index (BMI) [Ratio] 43.6 kg/m2 Eleanor Singleton Other [facility] Other 02-22-2023 14:15-0400 Body weight 117.03 kg Eleanor Snigleton Other [facility] Other 02-22-2023 14:15-0400 Diastolic blood pressure 84 mm[Hg] Eleanor Singleton Other [facility] Other 02-22-2023 14:15-0400 SaO2% (BldA) [Mass fraction] 99 % Eleanor Singleton Other [facility] Other 02-22-2023 14:15-0400 Systolic blood pressure 120 mm[Hg] Eleanor Singleton Other [facility] Other 01-18-2023 14:00-0500 Body height 163.83 cm Eleanor Singleton Other [facility] Other 01-18-2023 14:00-0500 Diastolic blood pressure 72 mm[Hg] Eleanor Singleton Other [facility] Other 01-18-2023 14:00-0500 Respiratory rate 18 /min Eleanor Singleton Other [facility] Other 01-18-2023 14:00-0500 SaO2% (BldA) [Mass fraction] 98 % Eleanor Singleton Other [facility] Other 01-18-2023 14:00-0500 Systolic blood pressure 128 mm[Hg] Eleanor Singleton Other [facility] Other 12-14-2022 15:15-0500 Body height 163.83 cm Eleanor Singleton Other [facility] Other 12-14-2022 15:15-0500 Body mass index (BMI) [Ratio] 42.75 kg/m2 Eleanor Singleton Other [facility] Other 12-14-2022 15:15-0500 Body weight 114.76 kg Eleanor Singleton Other [facility] Other 12-14-2022 15:15-0500 Diastolic blood pressure 90 mm[Hg] Eleanor Singleton Other [facility] Other 12-14-2022 15:15-0500 SaO2% (BldA) [Mass fraction] 98 % Eleaonr Singleton Other [facility] Other 12-14-2022 15:15-0500 Systolic blood pressure 130 mm[Hg] Eleanor Snigleton Other [facility] Other 11-17-2022 16:45-0500 Body height 163.83 cm Billy Mccoy Other [facility] Other 11-17-2022 16:45-0500 Body mass index (BMI) [Ratio] 42.99 kg/m2 Billy Mccoy Other [facility] Other 11-17-2022 16:45-0500 Body weight 115.4 kg Billy Mccoy Other [facility] Other 11-17-2022 16:45-0500 Diastolic blood pressure 84 mm[Hg] Billy Mccoy Other [facility] Other 11-17-2022 16:45-0500 SaO2% (BldA) [Mass fraction] 98 % Billy Mccoy Other [facility] Other 11-17-2022 16:45-0500 Systolic blood pressure 130 mm[Hg] Billy Mccoy Other [facility] Other 10-19-2022 15:45-0500 Body height 163.83 cm Eleanor Singleton Other [facility] Other 10-19-2022 15:45-0500 Diastolic blood pressure 80 mm[Hg] Eleanor Singleton Other [facility] Other 10-19-2022 15:45-0500 SaO2% (BldA) [Mass fraction] 99 % Eleanor Singleton Other [facility] Other 10-19-2022 15:45-0500 Systolic blood pressure 110 mm[Hg] Eleanor Singleton Other [facility] Other 10-07-2022 10:45-0500 Body height 163.83 cm Eleanor Singleton Other [facility] Other 10-07-2022 10:45-0500 Body mass index (BMI) [Ratio] 43.93 kg/m2 Eleanor Singleton Other [facility] Other 10-07-2022 10:45-0500 Body weight 117.94 kg Eleanor Singleton Other [facility] Other 10-07-2022 10:45-0500 Diastolic blood pressure 80 mm[Hg] Eleanor Singleton Other [facility] Other 10-07-2022 10:45-0500 SaO2% (BldA) [Mass fraction] 98 % Eleanor Singleton Other [facility] Other 10-07-2022 10:45-0500 Systolic blood pressure 120 mm[Hg] Eleanor Singleton Other [facility] Other 05-17-2022 08:21-0400 Body height 165.1 cm DO Ricky Quarles Work Phone: [facility] 05-17-2022 08:21-0400 Body mass index (BMI) [Ratio] 43.2 kg/m2 DO Ricky Quarles Work Phone: [facility] 05-17-2022 08:21-0400 Body temperature 98.3 [degF] DO Rickymaritza Quarles Work Phone: [facility] 05-17-2022 08:21-0400 Body weight 117.93 kg DO Ricky Quarles Work Phone: [facility] 05-17-2022 08:21-0400 Diastolic blood pressure 110 mm[Hg] DO Ricky Quarles Work Phone: [facility] 05-17-2022 08:21-0400 Heart rate 95 /min DO Ricky Quarles Work Phone: [facility] 05-17-2022 08:21-0400 Respiratory rate 18 /min DO Ricky Quarles Work Phone: [facility] 05-17-2022 08:21-0400 SaO2% (BldA) [Mass fraction] 98 % DO Ricky Quarles Work Phone: [facility] 05-17-2022 08:21-0400 Systolic blood pressure 175 mm[Hg] DO Ricky Quarles Work Phone: [facility] 03-01-2022 09:15-0400 Body height 163.83 cm Ricky Quarles Other [facility] Other 03-01-2022 09:15-0400 Body mass index (BMI) [Ratio] 43.61 kg/m2 Ricky Quarles Other [facility] Other 03-01-2022 09:15-0400 Body weight 117.07 kg Ricky Quarles Other [facility] Other 03-01-2022 09:15-0400 Diastolic blood pressure 96 mm[Hg] Ricky Quarles Other [facility] Other 03-01-2022 09:15-0400 Respiratory rate 18 /min Ricky Quarles Other [facility] Other 03-01-2022 09:15-0400 SaO2% (BldA) [Mass fraction] 98 % Ricky Quarles Other [facility] Other 03-01-2022 09:15-0400 Systolic blood pressure 140 mm[Hg] Ricky Quarles Other [facility] Other 01-26-2022 16:00-0500 Body height 163.83 cm Ricky Quarles Other [facility] Other 01-26-2022 16:00-0500 Body mass index (BMI) [Ratio] 43.77 kg/m2 Ricky Quarles Other [facility] Other 01-26-2022 16:00-0500 Body temperature 96.4 [degF] Ricky Quarles Other [facility] Other 01-26-2022 16:00-0500 Body weight 117.48 kg Ricky Quarles Other [facility] Other 01-26-2022 16:00-0500 Diastolic blood pressure 82 mm[Hg] Ricky Quarles Other [facility] Other 01-26-2022 16:00-0500 Respiratory rate 18 /min Ricky Quarles Other [facility] Other 01-26-2022 16:00-0500 SaO2% (BldA) [Mass fraction] 99 % Ricky Quarles Other [facility] Other 01-26-2022 16:00-0500 Systolic blood pressure 114 mm[Hg] Ricky Quarles Other [facility] Other Encounters Encounter Date Encounter Type Care Provider Facility Start: 02-06-2024 End: 02-07-2024 ambulatory Karissa Cabrera Facility:[facility] Eugene missy Start: 12-30-2023 End: 12-30-2023 ambulatory Billy Mccoy Other [facility] Other Start: 12-30-2023 Office outpatient vi sit 25 minutes Billyvalentina Mccoy [facility] Start: 12-19-2023 End: 12-19-2023 ambulatory [facility] Start: 12-19-2023 End: 12-19-2023 Encounter for other preprocedural examination [facility] Start: 11-30-2023 End: 11-30-2023 ambulatory VERONICA PINEDA Not Available Start: 11-30-2023 Office outpatient vi sit 15 minutes Eleanor Singleton [facility] Start: 11-09-2023 End: 11-09-2023 ambulatory PHYSICIAN NO FAMILY Facility:[facility] Start: 11-09-2023 End: 11-09-2023 ambulatory GIACOMO-Regina Pressley Work Phone: [facility] Work Phone: Start: 11-09-2023 End: 11-09-2023 Patient encounter procedure SALES SUPPORT ASSOCIATE-Regina Pressley Work Phone: [facility] Work Phone: Start: 11-02-2023 End: 11-02-2023 ambulatory Eleanor Singleton Other [facility] Other Start: 11-02-2023 Telephone encounter Eleanor Singleton [facility] Start: 11-01-2023 End: 11-01-2023 ambulatory Eleanor Singleton Other [facility] Other Start: 11-01-2023 Office outpatient vi sit 15 minutes Eleanor Singleton [facility] [place] Start: 10-27-2023 End: 10-27-2023 ambulatory ADELAIDE ZAVALA Not Available Start: 10-19-2023 End: 10-20-2023 ambulatory VERONICA PINEDA Not Available Start: 10-03-2023 End: 10-03-2023 ambulatory Billy Mccoy Other [employer] Other Start: 10-03-2023 Telephone encounter Billy Mccoy [facility] Start: 09-29-2023 End: 09-29-2023 ambulatory Eleanor Singleton Other [employer] Other Start: 09-29-2023 Office outpatient vi sit 15 minutes Eleanor Singleton [facility] Start: 09-06-2023 End: 09-06-2023 ambulatory Raman Laura Facility:[facility] Start: 09-06-2023 End: 09-06-2023 Patient encounter procedure PHYSICIAN NO [facility] Work Phone: Start: 09-06-2023 End: 09-06-2023 ambulatory PHYSICIAN NO [facility] Work Phone: Start: 09-06-2023 Office outpatient vi sit 40 minutes Raman Laura [facility] Start: 09-01-2023 Office outpatient vi sit 15 minutes Eleanor Singleton [facility] Start: 09-01-2023 End: 09-01-2023 ambulatory Raman Laura Facility:[facility] Start: 09-01-2023 End: 09-01-2023 ambulatory PHYSICIAN NO [facility] Work Phone: Start: 09-01-2023 End: 09-01-2023 Patient encounter procedure PHYSICIAN NO [facility] [place] Work Phone: Start: 08-12-2023 End: 08-12-2023 ambulatory RAYA OLIVA Facility:[facility] Start: 08-12-2023 End: 08-12-2023 Patient encounter procedure Raya Oliva MD Work Phone: Orthopaedics Comment on above: Arthritis of hip (Pr imary Dx); Avascular necrosis of left femur (HCC) Start: 08-12-2023 End: 08-12-2023 Subsequent hospital visit by physician Xr [facility] Comment on above: Pain [R52] Start: 08-02-2023 End: 08-02-2023 ambulatory Eleanor Singleton Other [employer] Other Start: 08-02-2023 Office outpatient vi sit 15 minutes Eleanor Singleton [facility] Start: 07-20-2023 End: 07-20-2023 Patient encounter procedure PHYSICIAN NO [facility] Work Phone: Start: 07-20-2023 End: 07-20-2023 ambulatory PHYSICIAN NO [facility] Work Phone: Start: 07-20-2023 Office outpatient vi sit 25 minutes Raman Laura [facility] Start: 06-30-2023 End: 06-30-2023 ambulatory Eleanor Singleton Other [employer] Other Start: 06-30-2023 Office outpatient vi sit 15 minutes Eleanor Singleton [facility] Start: 06-21-2023 End: 06-21-2023 ambulatory Raman Laura Facility:[facility] Start: 06-21-2023 End: 06-21-2023 Patient encounter procedure PHYSICIAN NO [facility] Work Phone: Start: 06-14-2023 End: 06-14-2023 ambulatory Raman Laura Other [employer] Other Start: 06-14-2023 Telephone encounter Raman Laura [facility] Start: 06-10-2023 ([facility] FU) [facility] F/ U Registerd Time Study Technician Sandra Hurley [facility] Start: 06-10-2023 End: 06-11-2023 ambulatory Eleanor Singleton [employer] Other Start: 06-10-2023 Registered Recurring PHYSICIAN NO [facility] Work Phone: Start: 06-02-2023 End: 06-02-2023 ambulatory Eleanor Singleton Other [employer] Other Start: 06-02-2023 Office outpatient vi sit 15 minutes Eleanor Singleton [facility] Start: 05-09-2023 [facility] Weight Management f/u Katarzyna ler [facility] Start: 05-09-2023 End: 05-09-2023 ambulatory Katarzyna Missler Other [employer] Other Start: 05-06-2023 ([facility] RD FU) [facility] F/ U Registerd Time Study Technician Sandra Gaystella [facility] Start: 05-06-2023 End: 05-06-2023 ambulatory Sandrafrederick Hurley Other [employer] Other Start: 05-02-2023 End: 05-02-2023 ambulatory Billy Mccoy Other [employer] Other Start: 05-02-2023 Telephone encounter Billy Mccoy [facility] Start: 04-27-2023 End: 04-27-2023 ambulatory Katazryna Missler Other [employer] Other Start: 04-27-2023 Telephone encounter Katarzynaher Lariosler [facility] Start: 04-24-2023 End: 04-24-2023 ambulatory Ai Pressley Facility:[facility] Start: 04-24-2023 End: 04-24-2023 ambulatory SALES SUPPORT ASSOCIATE-C Ai Pressley Work Phone: [facility] Work Phone: Start: 04-24-2023 End: 04-24-2023 Patient encounter procedure SALES SUPPORT ASSOCIATE-C Ai Pressley Work Phone: [facility]Electrodiagnostics Work Phone: Start: 04-14-2023 End: 04-14-2023 ambulatory Katarzyna R Amol Facility:[facility] Start: 04-14-2023 End: 04-14-2023 Patient encounter procedure SALES SUPPORT ASSOCIATE-C Ai Pressley Work Phone: [facility] Work Phone: Start: 04-04-2023 End: 04-04-2023 ambulatory Eleanor Singleton Other [employer] Other Start: 04-04-2023 Encounter by armen migue link Eleanor Singleton [facility] Start: 03-22-2023 End: 03-22-2023 ambulatory Eleanor Singleton Other [employer] Other Start: 03-22-2023 Office outpatient vi sit 15 minutes Eleanor Singleton [facility] [place] Start: 03-17-2023 Registered Recurring SALES SUPPORT ASSOCIATE-C Lonnie Pressley Work Phone: [facility] Work Phone: Start: 03-17-2023 [facility] Init ial Provider Sandra Hurley [facility] Start: 03-17-2023 End: 03-17-2023 ambulatory Sandra Fitt Other [employer] Other Start: 03-15-2023 End: 03-15-2023 ambulatory Sandra Fitt Other [employer] Other Start: 03-15-2023 IBT FOR OBESITY GROU P 2-10 30M Sandra Hurley [facility] Start: 03-11-2023 End: 03-11-2023 ambulatory Karin Altamirano Facility:[facility] Start: 03-11-2023 End: 03-11-2023 ambulatory SALES SUPPORT ASSOCIATE-Regina Pressley Work Phone: [facility] Work Phone: Start: 03-11-2023 End: 03-11-2023 Patient encounter procedure SALES SUPPORT ASSOCIATE-Regina Pressley Work Phone: [facility] Work Phone: Start: 03-10-2023 End: 03-10-2023 ambulatory Adelaide Zavala Facility:[facility] Start: 03-10-2023 End: 03-10-2023 ambulatory SALES SUPPORT ASSOCIATE-Regina Pressley Work Phone: [facility] Work Phone: Start: 03-10-2023 End: 03-10-2023 Patient encounter procedure SALES SUPPORT ASSOCIATE-Regina Pressley Work Phone: [facility] Work Phone: Start: 03-09-2023 ([facility]/U) Weight Management f/u Katarzyna Missler [facility] Start: 03-09-2023 End: 03-09-2023 ambulatory Katarzyna Missler Other [employer] Other Start: 03-09-2023 Registered Recurring SALES SUPPORT ASSOCIATE-Regina Pressley Work Phone: [facility] Work Phone: Start: 02-22-2023 End: 02-22-2023 ambulatory Eleanor Singleton Other [employer] Other Start: 02-22-2023 Office outpatient vi sit 25 minutes Eleanor Singleton [facility] [place] Start: 02-03-2023 End: 02-03-2023 ambulatory Katarzyna R ler Facility:[facility] Start: 02-03-2023 End: 02-03-2023 ambulatory PHYSICIAN NO [facility] Work Phone: Start: 02-03-2023 End: 02-03-2023 Patient encounter procedure PHYSICIAN NO [facility] [place] Work Phone: Start: 02-02-2023 End: 02-02-2023 ambulatory Katarzyna Missler Other [employer] Other Start: 02-02-2023 Telephone encounter Katarzyna Missler [facility] Start: 01-24-2023 Registered Recurring PHYSICIAN SARAY MICHELLE [facility]Weight [facility] Work Phone: Start: 01-24-2023 End: 01-24-2023 ambulatory Katarzyna Carmichael Other [employer] Other Start: 01-24-2023 Telephone encounter Katarzyna Carmichael [facility] Start: 01-18-2023 End: 01-18-2023 ambulatory Eleanor Singleton Other [employer] Other Start: 01-18-2023 Office outpatient vi sit 25 minutes Eleanor Singleton [facility] Start: 12-31-2022 End: 12-31-2022 ambulatory Billy Darius Other [employer] Other Start: 12-31-2022 Telephone encounter Billy Darius [facility] Start: 12-30-2022 End: 12-30-2022 ambulatory Billy Darius Other [employer] Other Start: 12-30-2022 Encounter by LawKick r link Billy Darius [facility] Start: 12-29-2022 Orders Only Raya young MD Work Phone: [facility] Comment on above: Pain (Primary Dx) Start: 12-27-2022 End: 12-27-2022 ambulatory Billy Darius Other [employer] Other Start: 12-27-2022 Encounter by LawKick r link Billy Darius [facility] Start: 12-14-2022 End: 12-14-2022 ambulatory Eleanor Singleton Other [employer] Other Start: 12-14-2022 Office outpatient vi sit 25 minutes Eleanor Singleton [facility] [place] Start: 11-23-2022 End: 11-23-2022 ambulatory Eleanor Singleton Other [employer] Other Start: 11-23-2022 Encounter by compute r link Eleanor Singleton [facility] Start: 11-19-2022 End: 11-19-2022 ambulatory Billy Darius Other [employer] Other Start: 11-19-2022 Encounter by compute r link Billy Darius [facility] Start: 11-17-2022 End: 11-17-2022 ambulatory Billy Darius Other [employer] Other Start: 11-17-2022 Office outpatient vi sit 25 minutes Billy Darius [facility] Start: 11-12-2022 End: 11-12-2022 ambulatory Eleanor Singleton Other [employer] Other Start: 11-12-2022 Encounter by compute r link Eleanor Singleton [facility] Start: 11-08-2022 End: 11-08-2022 ambulatory Eleanor Singleton Other [employer] Other Start: 11-08-2022 Encounter by compute r link Eleanor Singleton [facility] Start: 10-19-2022 End: 10-19-2022 ambulatory Eleanor Singleton Other [employer] Other Start: 10-19-2022 Office outpatient vi sit 15 minutes Eleanor Singleton [facility] [place] Start: 10-07-2022 End: 10-07-2022 ambulatory Eleanor Singleton Other [employer] Other Start: 10-07-2022 Office outpatient vi sit 25 minutes Eleanor Singleton [facility] Start: 09-16-2022 End: 09-17-[address] JETHRO ORDONEZ Facility:[facility] Start: 09-15-2022 End: 09-15-[address] JETHRO ORDONEZ Facility:[facility] Start: 07-05-2022 End: 07-05-2022 Discharged Recurring DO Ricky Robina Work Phone: [facility] [place] Start: 06-22-2022 End: 06-22-2022 ambulatory Jones [place] II Other [employer] Other Start: 06-22-2022 Encounter by armen Caceres II [facility] Start: 06-16-2022 (Procedure) Short Curtis Bravoleonard [facility] Start: 06-16-2022 End: 06-16-2022 ambulatory Curtis Yousif Other [employer] Other Start: 06-09-2022 End: 06-09-2022 ambulatory Jones Morris II Other [employer] Other Start: 06-09-2022 Office outpatient vi sit 25 minutes Jones Caceres II [facility] Start: 05-29-2022 End: 05-29-2022 Patient encounter procedure DO Ricky Robina Work Phone: [facility] [place] Start: 05-18-2022 End: 05-18-2022 ambulatory Ricky Quarles Other [employer] Other Start: 05-18-2022 Telephone encounter Ricky Albre[facility] Start: 05-18-2022 End: 05-18-2022 Patient encounter procedure DO Ricky Quarles Work Phone: [facility] Start: 05-17-2022 End: 05-17-2022 Emergency department patient visit DO Ricky Quarles Work Phone: [facility]-Emergency Room Start: 03-10-2022 End: 03-10-2022 ambulatory Ricky Quarles Other [employer] Other Start: 03-10-2022 Telephone encounter Ricky Albrecht [facility] Start: 03-01-2022 End: 03-01-2022 ambulatory Ricky Robina Other [employer] Other Start: 03-01-2022 Office outpatient vi sit 25 minutes Ricky Martinoahan [facility] Start: 01-26-2022 End: 01-26-2022 ambulatory Ricky Quarles Other [employer] Other Start: 01-26-2022 Office outpatient ne w 45 minutes Ricky Martinoahan [facility] Start: 01-19-2022 End: 01-19-2022 ambulatory Javier Pham Other [employer] Other Start: 01-19-2022 Office outpatient vi sit 5 minutes Javier Pham [facility] Urgent Care [facility] Start: 01-13-2022 End: 01-13-2022 ambulatory Maria Luisa Anand Other [employer] Other Start: 01-13-2022 Office outpatient vi sit 5 minutes Curtis Lind [facility] Urgent Care [facility] Start: 01-13-2022 Telephone encounter Maria Luisa Albre[facility] Procedures Date Procedure Procedure Detail Performing Clinician Start: 08-12-2023 Radex hip unilateral with pelvis 2-3 views Raya Oliva MD Work Phone: Start: 03-11-2023 Plain X-ray of left hip SALES SUPPORT ASSOCIATE-C Ai Pressley Work Phone: Start: 03-11-2023 X-ray of right knee SALES SUPPORT ASSOCIATE- C Ai Huan Work Phone: Start: 03-10-2023 Screening mammograph y of bilateral breasts SALES SUPPORT ASSOCIATE-C Ai Pressley Work Phone: Start: 05-29-2022 MRI of left hip DO Venkat Quarles Work Phone: Start: 05-18-2022 Plain X-ray of left hip DO Ricky Quarles Work Phone: Start: 05-17-2022 Plain X-ray of left hip DO Ricky Quarles Work Phone: Plan of Treatment Date Care Activity Detail Author Start: 07-29-2023 Influenza vaccination Influenza Vacc ine (#1) [facility] Start: 11-28-2022 DEPRESSION ASSESSMENT DEPRESSION ASS ESSMENT [facility] Start: 07-29-2022 Influenza vaccination INFLUENZA (#1) [facility] Start: 03-27-2021 Covid-19 Vaccine (3 - Pfizer series) Covid-19 Vaccine (3 - Pfizer series) [facility] Start: 2019 Mammography [facility] Start: 2009 HPV TESTING HPV TESTING [facility] Start: 2000 PAP TESTING PAP TESTING [facility] Start: 1998 Urine microalbumin profile [facility] Start: 1997 HEPATITIS C SCREENING HEPATITIS C SC REENING [facility] Start: 1997 HIV SCREENING HIV SCREENING [facility] Start: 06-14-1980 COVID-19 VACCINE (#1) COVID-19 VACCI NE (#1) [facility] Start: 1979 HEPATITIS B (1 of 3 - 3-dose series) HEPATITIS B (1 of 3 - 3-dose series) [facility] Start: 1979 Hepatitis B Vaccine (1 of 3 - 3-dose series) Hepatitis B Vaccine (1 of 3 - 3-dose series) [facility] Patient Education Tono-Danlos Syndrome Hip Pain (DC) [facility] Work Phone: Patient referral [facility] Work Phone: End: 01-28-2024 XR HIP GENERAL 3V PELV/AP/LAT LEFT XR HIP GENERAL 3V PELV/AP/LAT LEFT Radiology Routine Pain 1 Occurrences starting 12/29/2022 until 01/28/2024 [facility] Work Phone: Comment on above: 1 Occur[facility]i ng [facility]29[facility]2022 [facility] Immunization Date Immunization Notes Care Provider Lucian oconnor 12-28-2021 influenza, seasonal, injectable Ricky Quarles Other [employer] Other 11-13-2021 COVID-19 Vaccine Pfizer - Documentation Purposes Only Ricky Quarles Other [employer] Other 07-29-2020 influenza virus vaccine, unspecified formulation Raya Oliva MD Work Phone: [facility] Payers Date Payer Category Payer Medicaid [id number] 2022 Medicaid [id number] 2022 Self-pay [id number] 2021 Unknown [id number] 2. [id number] 1979 Unknown [id number] 2.16.84 0.1.572632.3.579.2.593 1979 Unknown [id number] 2.16.84 0.1.489411.3.579.2.593 1979 Unknown [id number] 2.16.840 .1.149947.3.579.2.9 1979 Unknown [id number] 2.16.840 .1.737213.3.579.2.9 1979 Unknown [id number] 2.16.840 .1.181964.3.579.2.9 1979 Unknown [id number] 2.16.840 .1.031152.3.579.2.9 1979 Unknown [id number] 2.16.8 40.1.744720.3.579.2.727 1959 Unknown [id number] 2.1 6.840.1.730722.19 Unknown [id number] 2.16.840.1. 874188.19 Unknown [id number] 2.16.8 40.1.691709.3.579.2.531 Unknown [id number] 2.16.8 40.1.020923.3.579.2.531 Unknown [id number] 2.16.8 40.1.728638.3.579.2.531 Unknown [id number] 2.16.8 40.1.621882.3.579.2.531 Unknown [id number] 2.16.8 40.1.286163.3.579.2.531 Unknown [id number] 2.16.8 40.1.014285.3.579.2.531 Unknown [id number] 2.16.8 40.1.373309.3.579.2.531 Unknown [id number] 2.16.8 40.1.528736.3.579.2.531 Unknown [id number] 2.16.8 40.1.409801.3.579.2.531 Unknown [id number] 2.16.8 40.1.990887.3.579.2.531 Unknown [id number] 2.16.8 40.1.912037.3.579.2.531 Social History Date Type Detail Facility Start: 08-12-2023 Sex Assigned At [employer] Other Start: 05-17-2022 End: 05-17-2022 Tobacco smoking status PAIS Never smoked tobacco (finding) [facility] Start: 1980 Sex Assigned At Female [facility] Tobacco smoking stat us PAIS Tobacco smoking consumption unknown [facility] Start: 1980 Sex Assigned At Not on file [facility] Start: 08-12-2023 History of Social function [facility] National Score (1-10 0), lower number is lower risk 80 [facility] Start: 08-10-2023 Gender identity Identifies as female gender (finding) [facility] Start: 08-10-2023 Sexual orientation Bisexual (finding) [facility] Clinical Notes 01-13-2022 to 12-30-2023 Note [...] - G89.29) Patient has continued need for [place]. OARRS report processed and reviewed and shows no violations. Patient was educated on the risks and benefits of residential opioid use. [place] was refilled today, opioid risk assessment was done as well as pill count. Patient is compliant with opioid medication. The patient denies any opioid related side effects. [employer] [facility] Chief Complaint: New [...] of major fluid shifts (more content not included)...[facility]01-03-2024 Evaluation note* Encounter Date Diagnosis Assessment Notes [...] as prescribed and I will refill her [place] as she feels this provides an element of relief. Nov, Other chronic pain (ICD-10 - G89.29) Patient has continued need for [place]. OARRS report processed and reviewed and shows no violations. Patient was educated on the risks and benefits of residential opioid use. [place] was refilled today, opioid risk assessment was done as well as pill count. Patient is compliant with opioid medication. The patient denies any opioid related side effects. Nov, Left thigh pain (ICD-10 - M79.652) Continue with conservative treatments. If symptoms persists or worsens, we will consider work up to further evaluate this pain. [employer] Other 12-05-2023 Evaluation note* Encounter Date Diagnosis [...] pain x 2 weeks. She is taking [place] with relief and requests a refill of this today. She continues to see Dr Phan and states she has a weight-loss plan to reach her goal of a BMI of 40 or below. In the meantime, she is encouraged to continue taking medications as prescribed and I will refill her [place] as she feels this provides an element of relief. Oct, Other chronic pain (ICD-10 - G89.29) Patient has continued need for [place]. OARRS report processed and reviewed and shows no violations. Patient was educated on the risks and benefits of tank terminal gauger opioid use. [place] was refilled today, opioid risk assessment was done as well as pill count. Patient is compliant with opioid medication. The patient denies any opioid related side effects. UDS was done today through [employer], will await confirmatory results. Oct, Left thigh pain (ICD-10 - M79.652) Continue with conservative treatments. If symptoms persists or worsens, we will consider work up to further evaluate this pain. [employer] Other 11-02-2023 Evaluation note* Encounter Date Diagnosis [...] of left hip pain. She is taking [place] with relief and requests a refill of this today. She continues to see Dr Phan and states she has a weight-loss plan to reach her goal of a BMI of 40 or below. In the meantime, she is encouraged to continue taking medications as prescribed and I will refill her [place] as she feels this provides an element of relief. Sep, Other chronic pain (ICD-10 - G89.29) Patient has continued need for [place]. OARRS report processed and reviewed and shows no violations. Patient was educated on the risks and benefits of tank terminal gauger opioid use. [place] was refilled today, opioid risk assessment was [...] we will re-test at her next OV. [employer] Other 10-10-2023 Evaluation note* Encounter Date Diagnosis [...] weight reduction can completely resolve sleep apnea [employer] Other 10-05-2023 Evaluation note* Encounter Date Diagnosis [...] She states she was seen by a [facility] orthopedic surgeon however she still needs to use weight prior to proceeding with surgery. She continues taking [place] with relief and is requesting a refill of this today. She notes she would like to continue to see Dr Phan and states she has a weight-loss plan to reach her goal of a BMI of 40 or below. In the meantime, she is encouraged to continue taking medications as prescribed and I will refill her [place] as she feels this provides an element of relief. Aug, Other chronic pain (ICD-10 - G89.29) Patient has continued need for [place]. OARRS report processed and reviewed and shows no violations. Patient was educated on the risks and benefits of tank terminal gauger opioid use. [place] was refilled today, opioid risk assessment was done as well as pill count. Patient is compliant with opioid medication. The patient denies any opioid related side effects. UDS performed through [employer] lab today, will await confirmatory results. [employer] Other 09-15-2023 NoteHNO ID: [id number] Author: Raya Oliva MD Service: ? Author [...] the care of pain management and take [place] 5/325 1/2 tab bid Was told needs [...] including metal or ceramic with cross-linked polyethylene, [id number] and [id number] as well as advantages and disadvantages of [...] they pose a significan (more content not included)...[facility]09-15-2023 NoteHNO ID: [id number] Author: Lynn Yost RT(R) Service: Radiology Author [...] BY: RT Dion(R) August 12, 2023 12:21 [facility]09-15-2023 History of Present illness Narrative* Raya Oliva [...] the care of pain management and take [place] 5/325 1/2 tab bid Was told needs total hip arthroplasty but needs to decrease BMI to under 40 Diagnoses: No diagnosis found. Based upon the evaluation today and after discussions with Nataliia M Nataliia Nelson has significant, worsening pain at [...] including metal or ceramic with cross-linked polyethylene, xrlxjfv-[id number] and nnjty-ns-lyqvw as well as advantages and disadvantages of [...] Past Histories independently gathered by the clinical biomedical equipment support specialist and the remaining scribed note accurately describes my personal service to the patient. The patient is seen and examined by Dr. Oliva and the following reflects his/her service. Scribed by Vielka Wahl RN [facility] History of Present illness Narrative* Lynn [...] BY: RT Dion(R) August 12, 2023 12:21 PM documented in this [facility]09-[facility]-2023 Evaluation note* Encounter Date Diagnosis Assessment [...] today. She is scheduled to see the [facility] orthopedic surgery next week. Different treatment options were discussed in detail with the patient, and I recommend she follow up with the [facility] as scheduled. In the meantime, I will refill her [place] as this provides an element of relief. Jul, Other chronic pain (ICD-10 - G89.29) Patient has continued need for [place]. OARRS report processed and reviewed and shows no violations. Patient was educated on the risks and benefits of residential opioid use. [place] was refilled today, opioid risk assessment was done as well as pill count. Patient is compliant with opioid medication. The patient denies any opioid related side effects. [facility] Other 08-23-2023 Evaluation note* Encounter Date Diagnosis [...] quality, but other processes are also present [facility] Other 08-03-2023 Evaluation note* Encounter Date Diagnosis Assessment Notes Treatment Notes Treatment Clinical Notes Jun, Arthropathy of left hip (ICD-10 - M16.12) 42 year old female here for follow up and medication refill for chronic pain. She voices complaints of left sided low back pain, denying radicular symptoms. She also voices continued complaints of left hip pain. She continues taking [place] and is requesting a refill of this today. She notes she plans to proceed with the [facility] to discuss sugical options. She feels pain is negatively impacting her daily activities. She does not wish to proceed with injections at this time as she would like to proceed with surgical options. I encouraged the patient to continue taking medications as prescribed and I will refill her [place] as she feels this provides an element of relief. Jun, Avascular necrosis of bone of left hip (ICD-10 - M87.052) Continue with current treatment plan. Jun, Other chronic pain (ICD-10 - G89.29) Patient has continued need for [place]. OARRS report processed and reviewed and shows no violations. Patient was educated on the risks and benefits of tank terminal gauger opioid use. [place] was refilled today, opioid risk assessment was done as well as pill count. Patient is compliant with opioid medication. The patient denies any opioid related side effects. [facility] Other 07-14-2023 Evaluation note* Encounter Date Diagnosis [...] goals: Start fruit and vegetable sticker chart [facility] Other 07-06-2023 Evaluation note* Encounter Date Diagnosis Assessment Notes Treatment Notes Treatment Clinical Notes May, Arthropathy of left hip (ICD-10 - M16.12) 42 year old female here for follow up and medication refill for chronic pain. She voices complaints of left hip pain. She continues with weight loss in order to proceed with surgery. She continues taking [place] with relief and is requesting a refill of this today. Different treatment options were discussed with the patient. She does not wish to proceed with injections at this time as she feels pain is at a tolerable level with medication management. I encouraged the patient to continue taking medications as prescribed and I will refill her [place] as she feels this provides an element of relief. May, Avascular necrosis of bone of left hip (ICD-10 - M87.052) Continue with current treatment plan. May, Other chronic pain (ICD-10 - G89.29) Patient has continued need for [place]. OARRS report processed and reviewed and shows no violations. Patient was educated on the risks and benefits of tank terminal gauger opioid use. [place] was refilled today, opioid risk assessment was done as well as pill count. Patient is compliant with opioid medication. The patient denies any opioid related side effects. UDS performed through [facility] today, will await confirmatory results. [facility] Other 06-12-2023 Evaluation note* Encounter Date Diagnosis [...] Encounter for weight management (ICD-10 - Z76.89) [facility] Other 06-09-2023 Evaluation note* Encounter Date Diagnosis [...] identify if it was causing taste changes [facility] Other 06-05-2023 Evaluation note* Encounter Date Diagnosis Assessment Notes Treatment Notes Treatment Clinical Notes Apr, Arthropathy of left hip (ICD-10 - M16.12) [facility] Other 05-08-2023 Evaluation note* Encounter Date Diagnosis Assessment Notes Treatment Notes Treatment Clinical Notes March, Arthropathy of left hip (ICD-10 - M16.12) [facility] Other 04-25-2023 Evaluation note* Encounter Date Diagnosis Assessment Notes Treatment Notes Treatment Clinical Notes Feb, Arthropathy of left hip (ICD-10 - M16.12) 42 year old female here for follow up and medication refill for chronic pain. She continues to complain of left hip pain. She rates her pain 3/10 today. She reports that the [place] is providing an element of relief and [...] at this time. I will refill his [place] today as she feels this provides an element of relief. Feb, Left leg pain (ICD-10 - M79.605) Continue with medication mgmt Feb, Other chronic pain (ICD-10 - G89.29) Patient has continued need for [place]. OARRS report processed and reviewed and shows no violations. Patient was educated on the risks and benefits of residential opioid use. [place] was refilled today, opioid risk assessment was done as well as pill count. Patient is compliant with opioid medication. The patient denies any opioid related side effects. Feb, Avascular necrosis of bone of left hip (ICD-10 - M87.052) Patient recommended to continue follow up with Ortho for surgical intervention. Continue with [facility] for further mgmt. [facility] Other 04-20-2023 Evaluation note* Encounter Date Diagnosis [...] the following goals: Increase variety of vegetables [facility] Other 04-18-2023 Evaluation note* Encounter Date Diagnosis [...] patient set personal goal using given handout. [facility] Other 04-12-2023 Evaluation note* Encounter Date Diagnosis [...] day prior to her moving here from [place] in May 2021. Feb, Gastroesophageal reflux disease, [...] Encounter for weight management (ICD-10 - Z76.89) [facility] Other 03-28-2023 Evaluation note* Encounter Date Diagnosis [...] get a second surgical opinion at the [facility]. She states she was seen by weight management and is being referred to a sleep specialist, exercise and data review specialist. She rates her pain 4/10 today. She contines taking [place] and is requesting a refill of this today. I encouraged her to proceed with the [facility] evaluation. Meanwhile, I will refill her [place] today as she feels this provides an element of relief. Jan, Left leg pain (ICD-10 - M79.605) Reviewed EMG results with patient today. No abnormalities. Jan, Other chronic pain (ICD-10 - G89.29) Patient has continued need for [place]. OARRS report processed and reviewed and shows no violations. Patient was educated on the risks and benefits of residential opioid use. [place] was refilled today, opioid risk assessment was done as well as pill count. Patient is compliant with opioid medication. The patient denies any opioid related side effects. Jan, Avascular necrosis of bone of left hip (ICD-10 - M87.052) Patient recommended to continue follow up with Ortho for surgical intervention. Continue with [facility] for further mgmt. [facility] Other 02-21-2023 Evaluation note* Encounter Date Diagnosis [...] while shes lying down. She contines taking [place] and is requesting a refill of this [...] as prescribed and I will refill her [place] todat as she feels this provides an [...] - G89.29) Patient has continued need for [place]. OARRS report processed and reviewed and shows no violations. Patient was educated on the risks and benefits of residential opioid use. [place] was refilled today, opioid risk assessment was done as well as pill count. Patient is compliant with opioid medication. The patient denies any opioid related side effects. Dec, Avascular necrosis of bone of left hip (ICD-10 - M87.052) Patient recommended to continue follow up with Ortho for surgical intervention. Diet modifications and increased activity as tolerated is encouraged for weight loss. [facility] Other 02-03-2023 Evaluation note* Encounter Date Diagnosis Assessment Notes Treatment Notes Treatment Clinical Notes Dec, Arthropathy of left hip (ICD-10 - M16.12) [facility] Other 02-02-2023 Evaluation note* Encounter Date Diagnosis Assessment Notes Treatment Notes Treatment Clinical Notes Dec, Arthropathy of left hip (ICD-10 - M16.12) [facility] Other 01-30-2023 Evaluation note* Encounter Date Diagnosis Assessment Notes Treatment Notes Treatment Clinical Notes Nov, Arthropathy of left hip (ICD-10 - M16.12) [facility] Other 01-17-2023 Evaluation note* Encounter Date Diagnosis [...] the patient, and I will refill her [place] as this provides an element of relief. Nov, Other chronic pain (ICD-10 - G89.29) Patient has continued need for [place]. OARRS report processed and reviewed and shows no violations. Patient was educated on the risks and benefits of residential opioid use. [place] was refilled today, opioid risk assessment was [...] her own and has not been successful. [facility] Other 12-27-2022 Evaluation note* Encounter Date Diagnosis Assessment Notes Treatment Notes Treatment Clinical Notes Oct, Arthropathy of left hip (ICD-10 - M16.12) [facility] Other 12-23-2022 Evaluation note* Encounter Date Diagnosis Assessment Notes Treatment Notes Treatment Clinical Notes Oct, Arthropathy of left hip (ICD-10 - M16.12) [facility] Other 12-21-2022 Evaluation note* Encounter Date Diagnosis [...] the patient, and I will refill her [place] as this provides an element of relief. Oct, Other chronic pain (ICD-10 - G89.29) Patient has continued need for [place]. OARRS report processed and reviewed and shows no violations. Patient was educated on the risks and benefits of tank terminal gauger opioid use. [place] was refilled today, opioid risk assessment was done as well as pill count. Patient is compliant with opioid medication. The patient denies any opioid related side effects. Oct, Avascular necrosis of bone of left hip (ICD-10 - M87.052) Patient recommended to continue follow up with Ortho for surgical intervention. Diet modifications and increased activity as tolerated is encouraged for weight loss. [facility] Other 12-16-2022 Evaluation note* Encounter Date Diagnosis Assessment Notes Treatment Notes Treatment Clinical Notes Oct, Greater trochanteric pain syndrome (ICD-10 - M25.559) [facility] Other 11-22-2022 Evaluation note* Encounter Date Diagnosis Assessment Notes Treatment Notes Treatment Clinical Notes Sep, Arthropathy of left hip (ICD-10 - M16.12) 41 year old female here for follow up and medication refill for chronic pain. She voices complaints of left hip pain. She feels [place] once daily is helping, but not wears [...] pain (ICD-10 - G89.29) Patient was prescrobed [place] today. OARRS report processed and reviewed and shows no violations. Patient was educated on the risks and benefits of opioid use. Opioid risk assessment was done. The patient denies any opioid related side effects with medications in the past. She signed an Opioid contract in the office today. UDS performed through [facility] today, will await confirmatory results. Sep, Avascular necrosis of bone of left hip (ICD-10 - M87.052) Patient recommended to continue follow up with Ortho for surgical intervention. Diet modifications and increased activity as tolerated is encouraged for weight loss. Discussed option to consult with [facility]. Continue with medication mgmt as discussed. [facility] Other 11-10-2022 Evaluation note* Encounter Date Diagnosis [...] pain (ICD-10 - G89.29) Patient was prescrobed [place] today. OARRS report processed and reviewed and shows no violations. Patient was educated on the risks and benefits of opioid use. Opioid risk assessment was done. The patient denies any opioid related side effects with medications in the past. She signed an Opioid contract in the office today. UDS performed through [facility] today, will await confirmatory results. Sep, Avascular [...] negative findings were considered in medical decision-making. [facility] Other 07-13-2022 Evaluation note* Encounter Date Diagnosis [...] get her set up with Dr. Escobar Youisf for an intra-articular left hip corticosteroid injection. I will plan to see her back 3 months after this injection to check on her progress. In the meantime, I recommended that she follow-up with that [facility] rheumatology referral so that she could get set back up on some of her rheumatoid meds as previously she has had success with Remicade and Toltz but has not been on them since she is moved from [facility]. [facility] Other 04-04-2022 Evaluation note* Encounter Date Diagnosis [...] may call the location of her choice. [facility] Other 03-01-2022 Evaluation note* Encounter Date Diagnosis [...] seeing a psychiatrist and a therapist in [place]. She has had symptoms of depression and [...] using it once or twice a month. [facility] Other 02-22-2022 Evaluation note* Encounter Date Diagnosis [...] Patient care instructions given in writting by [facility] document. [facility] Other 02-16-2022 Evaluation note* Encounter Date Diagnosis [...] Patient care instructions given in writting by [facility] document. [facility] Other Evaluation noteNo [employer] Other Evaluation noteNo assessment information available [facility] Work Phone: [employer] note* Diagnosis Pain- Primary Generalized [facility] Diagnosis Arthritis of hip- Primary Unspecified arthropathy, pelvic region and thigh Avascular necrosis of left femur (HCC) [facility] Diagnosis Pain Generalized pain documented in this encounter [facility] general Narrative - Reported* Type Description Date Medical History fibromyalgia Medical History tono-danlos syndrome Medical History PCOS Medical History acne Medical History psoriasis Medical History psoriatic arthritis Medical History borderline personality disorder Surgical History appendectomy 06/2003 Surgical History cholecystectomy 10/2005 Surgical History vertical sleeve gastrectomy 2010 Surgical History left knee surgery-patellar femo ral 09/2019 Hospitalization History Multiple mental health hospitalizations with suicide attempts [facility] Other Hisqpcl general Narrative - Reported* Type Description Date [...] Multiple mental health hospitalizations with suicide attempts [facility] Other Hisrknz general Narrative - Reported* Type Description Date [...] Multiple mental health hospitalizations with suicide attempts [facility] Other History general Narrative - Reported* Type [...] Multiple mental health hospitalizations with suicide attempts [phone] [facility] Other Hospital Discharge [facility] Work Phone: Reason for referral (narrative)* Diagnostic Procedure Only (Routine) - Authorized Specialty Diagnoses / Procedures Referred By Jony douglas Referred To Contact XR IMAGING Diagnoses Pain Procedures XR HIP GENERAL 3V PELV/AP/LAT LEFT RADEX HIP UNILATERAL WITH PELVIS 2-3 VIEWS Raya Oliva MD [address], [place] [id number] Xr Imaging Referral ID Status Reason Start Date Expiration Date Visits Requested Visits Authorized [id number] Authorized Auto-Generat ed Referral 12/29/2022 01/28/2024 1 1 [facility] for referral (narrative)* Diagnostic Procedure Only (Routine) - Closed Specialty Diagnoses / Procedures Referred By Contraheel t Referred To Contact XR IMAGING Diagnoses Pain Procedures XR HIP GENERAL 3V PELV/AP/LAT LEFT RADEX HIP UNILATERAL WITH PELVIS 2-3 VIEWS Raya Oliva MD [address], [address] [address] Xr Imaging [place] [address] Referral ID Status Reason Start Date Expiration Date V isits Requested Visits Authorized [id number] Closed Auto-Generate d Referral 12/29/2022 01/28/2024 1 [facility] Diagnostic Procedure Only (Routine) - Closed Specialty Diagnoses / Procedures Referred By Contac t Referred To Contact XR IMAGING Diagnoses Pain Procedures XR HIP GENERAL 3V PELV/AP/LAT LEFT RADEX HIP UNILATERAL WITH PELVIS 2-3 VIEWS Raya Oliva MD [address] [place] [address] [place] [id number] Referral ID Status Reason Start Date Expiration Date V isits Requested Visits Authorized [id number] Closed Auto-Generate d Referral 12/29/2022 01/28/2024 1 1 [facility] Chief Complaint and Reason for Visit [...] First Name Eleanor Referring Provider Last Name [place] Referring Provider Specialty Nurse Pract itioner Referred Organization [facility] Referred Provider Cony Reed Referred Address [address] [place],[address] Referred Provider Specialty Neurology Referral Priority Routine Referral Appointment Date 2023-02-01 General Notes Maria Luisa Harrell 03:22:40 PM >received, will send referral out one Eleanor's note is completed and locked Maria Luisa Harrell 01/20/2023 10:35:18 AM >Eleanor's note is now completed and locked. P2p sent to [facility] for scheduling. Maria Luisa Harrell 01/27/2023 08:41:06 AM >faxed first follow up letter Maria Luisa Harrell 01/27/2023 02:49:30 PM >received confirmation that patient is scheduled 02/01/23 Sandra Renner 02/02/2023 08:42:33 AM >EMG Report in chart Reason eval and treat Diagnosis 1 Morbid obesity (E66. 01) Referral Organization [facility] Referring Provider First Name Eleanor Referring Provider Last Name Singleton Referring Provider Specialty Nurse Pract itioner Referred Organization [facility] Referred Provider Luis Velez Referred Address [address],[place], [place],[address] Referred Provider Specialty Internal Med icine Referral [...] Member Role Status Dates Ai Pressley , SALES SUPPORT ASSOCIATE-C Primary Care Provider Active Team Status: Active Member Role Status Dates Eleanor Singleton NP Attending Provider Active PHYSICIAN NO FAMILY Primary Care Provider Active Team Status: Inactive Member Role Status Dates Ai Pressley , SALES SUPPORT ASSOCIATE-C Primary Care Provider Active Raman Laura MD Attending Provider Active Team Status: Inactive Member Role Status Dates Ai Pressley , SALES SUPPORT ASSOCIATE-C Primary Care Provider Active Katarzyna Carmichael APRN Attending Provider Active Team Status: Inactive Member Role Status Dates Ricky Quarles , Primary Care Provider Active Jones Caceres II, MD Attending Provider Active Team Status: Inactive Member Role Status Dates Jones Caceres II, MD Attending Provider Active Ai Pressley , SALES SUPPORT ASSOCIATE-C Primary Care Provider Active Team Status: Inactive Member Role Status Dates Ricky Quarles , Primary Care Provider Active Jethro Perez DO Emergency Provider Active Crossbow Maker Relationship Specialty Start Date End Date Huan Ai Porter, SALESPERSON [employer] [address] [place] [address] Referring Family Medicine 05/30/22 Team Status: Inactive Member Role Status Dates Adelaide Zavala MD Attending Provider Active Ai Pressley , SALES SUPPORT ASSOCIATE-C Primary Care Provider Active Team Status: Inactive Member Role Status Dates Ai Pressley , SALES SUPPORT ASSOCIATE-C Primary Care Provider Active Karin Altamirano NP-C Attending Provider Active Team Status: Inactive Member Role Status Dates Ai Pressley , SALES SUPPORT ASSOCIATE-C Primary Care Provider, Attendi ng Provider Active Team Status: Inactive Member Role Status Dates Raman Laura MD Attending Provider Active Katarzyna Carmichael APRN Referring Provider Active Ai Pressley , SALES SUPPORT ASSOCIATE-C Primary Care Provider Active Crossbow Maker Relationship Specialty Start Date End Date Ai Pressley [place], SALESPERSON [employer] [address] [place] [address] Referring Family Medicine 05/30/22 Crossbow Maker Relationship Specialty Start Date End Date Ai Pressley APRN [address] [place] [address] Referring Family Medicine 05/30/22 Team Status: Active [...] and content) DATE CREATED AUTHOR 10/06/2022 [facility] DATE CREATED AUTHOR AUTHOR'S ORGANIZ ATION 08/14/2023 [facility] DATE CREATED AUTHOR AUTHOR'S ORGANIZ ATION 12/01/2023 [facility] DATE CREATED AUTHOR AUTHOR'S ORGANIZ ATION 01/06/2024 [facility] DATE CREATED AUTHOR AUTHOR'S ORGANIZ ATION 02/07/2024 [facility] DATE CREATED AUTHOR AUTHOR'S ORGANIZ ATION 02/14/2024 [facility] Source Comments (unrecognize d section and content) In the event this informatio n is protected by the Federal Confidentiality of Alcohol and Drug Abuse Patient Records regulations: The Federal rules restrict any use of the information to criminally investigate or prosecute any alcohol or drug abuse patient.[facility] the event this information is protected by the Federal Confidentiality of Alcohol and Drug Abuse Patient Records regulations: The Federal rules restrict any use of the information to criminally investigate or prosecute any alcohol or drug abuse patient.[facility] the event this information is protected by the Federal Confidentiality of Alcohol and Drug Abuse Patient Records regulations: The Federal rules restrict any use of the information to criminally investigate or prosecute any alcohol or drug abuse patient.[facility] FOR RECORDS PERTAINING TO PATIENTS WHO [...] BE BASED ON THE PRIMARY CLINICAL RECORDS. [facility] [employer] [facility]. provides no warranty or guarantee of the accuracy or completeness of information in this document.
== END 2024-02-22 15:06 | disposition home or self-care (01) ==
LOC: RAD 15:05
PROVIDERS: PCP Nurse Practitioner; Visit Provider Nurse Practitioner
DX: M25.561 Pain in right knee (principal); M17.11 Unilateral primary osteoarthritis, right knee
CPT/HCPCS: 73562

== ENCOUNTER 2024-04-11 07:32 | Outpatient (RCR) | payer MEDICAID, SELFPAY ==
--- NOTE | 2024-04-11 10:33 | PC.NURSE ---
Pt is here for straight cath, she tolerated this procedure well and sterile technique was maintained. Urine was clear and she denies any pain. She was discharged home ambulatory.
[2024-04-11 10:53] LABS: Bilirubin Urine SMALL (NEGATIVE); Blood Urine NEGATIVE (NEGATIVE); Clarity Urine CLEAR (CLEAR); Color Urine DK. YELLOW (YELLOW); Glucose Urine UA NEGATIVE (NEGATIVE); Ketones Urine NEGATIVE (NEGATIVE); Leukocyte Esterase Urine NEGATIVE (NEGATIVE); Nitrite Urine NEGATIVE (NEGATIVE); Protein Urine TRACE mg/dL (NEG/TRACE); Specific Gravity Urine >=1.030 (1.005-1.025); pH Urine 5.5 (5.0-9.0)
[2024-04-11 10:55] LABS: Urine Microscopic Indicated NO
== END 2024-04-27 23:59 | disposition home or self-care (01) ==
LOC: INF 07:32
PROVIDERS: PCP Nurse Practitioner; Visit Provider Personal Emergency Response Attendant
DX: N30.00 Acute cystitis without hematuria (principal)
CPT/HCPCS: 51701; 81003